=== PATIENT | female | born 1940 | race African-American/Black ===

== ENCOUNTER 2017-02-06 12:08 | Day surgery (SDC) | payer MEDICARE, OTHER ==
[2017-02-05 15:03] VITALS: BMI 29.8
[2017-02-06 12:28] LABS: Mean Platelet Volume 6.3 fL (7.4-10.4); Red Blood Cell (RBC) Count 4.86 mill/uL (4.20-5.40); White Blood Cell (WBC) Count 14.4 thou/uL (4.8-10.8)
[2017-02-06 12:33] LABS: PTT 29.3 SEC (22.9-36.1); Prothrombin Time 13.4 SEC (12.0-14.7)
[2017-02-06 13:04] VITALS: BP 129/90; TEMP 97.3
[2017-02-06] MEDS ORDERED: Sodium Bicarbonate 2.4 MEQ/5 ML ONE (13:06)
[2017-02-06] MEDS ORDERED: Lidocaine 1% PF 5 ML VIAL ONE (13:07)
--- NOTE | 2017-02-06 15:48 | ULT ---
ULTRSOUND GUIDED PARACENTESIS: History: Ascites. Comparison: None. FINDINGS: Technically successful ultrasound guided paracentesis. A total of 5 L of yellow colored ascites was aspirated. Post procedure images do demonstrate ascites to be present. Additional fluid was not aspi rated due to this was the patient's first paracentesis. Technique: Consent obtained to perform an ultrasound guided paracentesis. Patient's abdomen was evaluated. The left lower quadrant was deemed appropriate. Skin was prepped and draped in sterile fashion. 1% Lidoc jose buffered with sodium bicarbonate used for local anesthesia. Under ultrasound guidance a 7 cm 5 Bruneian Yueh catheter was advanced into the peritoneal space. Via vacuum bottles, a total of 5 L of y ellow colored ascites aspirated. Patient tolerated the procedure well. No immediate or post procedur e complication. IMPRESSION: Technically successful ultrasound guided paracentesis. POS: [facility]
== END 2017-02-06 14:00 | disposition home or self-care (01) ==
LOC: ULT 12:08
PROVIDERS: ATTEND Internal Medicine Hematology & Oncology
PROC: 0W9G30Z Drainage of Peritoneal Cavity with Drainage Device, Percutaneous Approach (ICD-10-PCS; principal; 2017-02-06)
DX: R18.8 Other ascites (principal); C54.1 Malignant neoplasm of endometrium; G62.0 Drug-induced polyneuropathy; T45.1X5A Adverse effect of antineoplastic and immunosuppressive drugs, initial encounter; I10 Essential (primary) hypertension; K21.9 Gastro-esophageal reflux disease without esophagitis; E78.00 Pure hypercholesterolemia, unspecified; Z79.899 Other long term (current) drug therapy; Z98.51 Tubal ligation status; Z98.890 Other specified postprocedural states
CPT/HCPCS: 36415; 49083; 85027; 85610; 85730; J2001

== ENCOUNTER 2017-03-05 08:02 | Day surgery (SDC) | payer MEDICARE, OTHER ==
[~2017-03-05 08:02] MED LIST: FLU VACC TS2017-18 (>65YR) 0.5 ML SYRINGE IM ONE
[2017-03-05] MEDS ORDERED: Sodium Bicarbonate 2.4 MEQ/5 ML ONE (08:27)
[2017-03-05 11:38] VITALS: BP 113/65; TEMP 97.6
--- NOTE | 2017-03-05 14:15 | ULT ---
ULTRASOUND GUIDED PARACENTESIS: DATE: 03/05/17. HISTORY: Recurrent ascites. TECHNIQUE: After informed consent was obtained, the patient was placed on the sonographic table in the supine po sition. An appropriate access site was evaluated with ultrasound guidance. An area in the midaxilla ry line right upper quadrant was marked and meticulously prepped and draped in the usual sterile fash ion. The skin and subcutaneous tissues were infiltrated with buffered 1% Lidocaine for local anesthesia. A small skin incision was made. Utilizing concurrent real-time ultrasound guidance, a 19 gauge Yueh needle with 5 Maltese sheath was advanced into the abdomen. After the return of fluid, the needle was removed and a sheath was advanced. Approximately 6 L of hazy straw-colored fluid was aspirated. Th e sheath was removed, and hemostasis was achieved with direct pressure. Post paracentesis images dem onstrate a small amount of residual intraperitoneal free fluid. The patient tolerated the procedure well without immediate complication. A dry, sterile dressing was placed to catheter entry site. IMPRESSION: Technically successful ultrasound-guided paracentesis. POS: [facility]
== END 2017-03-05 09:45 | disposition home or self-care (01) ==
LOC: ULT 08:02
PROVIDERS: ATTEND Internal Medicine Hematology & Oncology
PROC: 0W9G3ZZ Drainage of Peritoneal Cavity, Percutaneous Approach (ICD-10-PCS; principal; 2017-03-05)
PROC: BW40ZZZ Ultrasonography of Abdomen (ICD-10-PCS; 2017-03-05)
DX: C55 Malignant neoplasm of uterus, part unspecified (principal); R18.0 Malignant ascites; G62.9 Polyneuropathy, unspecified; I10 Essential (primary) hypertension; K21.9 Gastro-esophageal reflux disease without esophagitis; E78.00 Pure hypercholesterolemia, unspecified; Z79.899 Other long term (current) drug therapy; Z98.51 Tubal ligation status; Z98.890 Other specified postprocedural states
CPT/HCPCS: 49083

== ENCOUNTER 2017-04-14 14:12 | Observation (INO) | payer MEDICARE, OTHER ==
[2017-04-14 15:50] LABS: #Basophils 0.2 thou/uL (0.0-0.2); #Lymphocytes 1.1 thou/uL (1.20-3.40); #Monocytes 0.1 thou/uL (0.11-0.59); #Neutrophils 10.4 thou/uL (1.40-6.50); %Basophils 1.6 % (0.0-1.0); %Eosinophils 0.1 % (0.0-10.0); %Lymphocytes 9.4 % (21.0-51.0); %Monocytes 0.7 % (0.0-10.0); %Neutrophils 88.2 % (42.0-75.0); Hemoglobin 10.1 g/dL (12.0-16.0); Mean Corpuscular Hemoglobin 24.9 pg (27.0-31.0); Mean Platelet Volume 8.2 fL (7.4-10.4); Platelet Count 216 thou/uL (130-400); RBC Distribution Width 19.3 % (11.5-14.5); Red Blood Cell (RBC) Count 4.04 mill/uL (4.20-5.40); White Blood Cell (WBC) Count 11.8 thou/uL (4.8-10.8)
[2017-04-14 16:13] LABS: Anisocytosis MODERATE=16-30 cells (100X) (0-5/hpf); Hypochromia SLIGHT = 6-15 cells (100X) (0-5/hpf); MDiff Complete? YES; PLT Morphology Comment Appears Adequate; Polychromasia SLIGHT = 2-3 cells (100X) (0-2/hpf); Target Cells SLIGHT = 2-5 cells (100X) (0-1/hpf)
[2017-04-14 16:14] LABS: ALT (SGPT) 12 U/L (8-55); AST (SGOT) 22 U/L (5-34); Alkaline Phosphatase 124 U/L (40-150); Anion Gap 12 mmol/L (10-20); BUN (Urea Nitrogen) 12 mg/dL (9.8-20.1); Bilirubin, Total 0.4 mg/dL (0.2-1.2); Calc. Creatinine Clearance 0 mL/min (70-130); Calcium 8.6 mg/dL (7.8-10.44); Carbon Dioxide 24 mmol/L (23-31); Chloride 104 mmol/L (98-107); Estimated GFR-MDRD 74; Globulin 2.9 g/dL (2.4-3.5); Glucose 121 mg/dL (83-110); Potassium 4.4 mmol/L (3.5-5.1); Protein, Total 5.9 g/dL (6.0-8.3); Sodium 136 mmol/L (136-145)
[2017-04-14] MEDS ORDERED: ISOVUE-370 76%-LOCM 1 ML ONE (17:05)
[2017-04-14] MEDS ORDERED: Meropenem 1 GM in Sterile Water 20 ML SLOW IVP SCH (18:15)
--- NOTE | 2017-04-14 18:57 | CT ---
CT ABDOMEN AND PELVIS WITH IV CONTRAST: INDICATIONS: History of endometrial cancer. Question of an infected port, used for paracentesis. FINDINGS: There is moderate left and small right pleural effusion. There is a patchy opacity in the left lower lobe, suspicious for volume loss. There is moderate anasarca. There is a right abdominal wall paracentesis port. The tubing appears i ntact. The tubing enters the right lower quadrant of the abdomen and extends to the midline. There is a moderate amount of ascites. There is a nodular enhancing lesions seen adjacent to the rig ht hepatic tip, suspicious for carcinomatosis. This measures 2 cm in size. There is a prominent par tially calcified, hypodense mass, involving the uterus, measuring 7 cm, consistent with the patient's history of carcinoma. The small and large bowel are of normal caliber. The bladder, rectum, and perirectal soft tissues ap pear within normal limits. There are fat-containing inguinal hernias. There is scattered degenerative and osteoarthritic change. There is an age indeterminate wedge compr ession abnormality of L1. There is diffuse osteopenia. There are partially calcified lymph nodes within the central mesentery. IMPRESSION: 1. Large hypodense mass involving the endometrial canal of the uterus, suspicious for the patient's known endometrial carcinoma. There is a soft tissue density seen involving the peritoneum, adjacent to the right hepatic lobe tip, measuring 2 cm, suspicious for carcinomatosis. 2. Moderate ascites. 3. Moderate anasarca. 4. Moderate left and small right pleural effusions. 5. Age indeterminate compression abnormality of L1. POS: [facility]
[2017-04-14 20:21] LABS: Lactic Acid 2.1 mmol/L (0.5-2.2)
[2017-04-14 20:46] LABS: Bilirubin Negative (Negative); Blood, Urine Negative (Negative); Clarity CLEAR (Clear); Glucose, Urine (Dipstick) Negative (Negative); Leukocyte Negative (Negative); Nitrite Negative (Negative); Protein, Urine (Dipstick) Negative (Neg-Trace); Urobilinogen 0.2 mg/dL (0.2-1.0); pH, Urine 5.5 (5.0-9.0)
[2017-04-14 20:47] LABS: Specific Gravity, Urine 1.047 (1.002-1.036)
[2017-04-14] MEDS ORDERED: Dextrose 5 % And 0.9 % NaCl 1,000 ML IV SCH (23:45)
[2017-04-14] MEDS ORDERED: Acetaminophen 325 MG TAB PO PRN (23:46)
[2017-04-14] MEDS ORDERED: Ondansetron HCl/PF 4 MG/2 ML Vial IVP PRN (23:46)
[2017-04-14] MEDS ORDERED: Ondansetron ODT 4 MG TAB SL PRN (23:46)
[2017-04-15] MEDS ORDERED: Acetaminophen 325 MG TAB PO PRN ×2 (01:43→03:59)
[2017-04-15] MEDS ORDERED: Ondansetron HCl/PF 4 MG/2 ML Vial IVP PRN ×2 (01:43→03:59)
[2017-04-15] MEDS ORDERED: Ondansetron ODT 4 MG TAB SL PRN (01:43)
[2017-04-15] MEDS ORDERED: Dextrose 5 % And 0.9 % NaCl 1,000 ML IV SCH (01:45)
[2017-04-15 03:31] VITALS: BMI 29.9
[2017-04-15] MEDS ORDERED: HYDROcodone/Acetaminophen 5/325 mg Tablet PO PRN (03:59)
[2017-04-15] MEDS ORDERED: HYDROcodone/Acetaminophen 10/325 mg Tablet PO PRN (03:59)
[2017-04-15] MEDS ORDERED: Ondansetron ODT 4 MG TAB PO PRN (03:59)
[2017-04-15] MEDS ORDERED: Meropenem 1 GM in Sterile Water 20 ML SLOW IVP SCH (04:00)
[2017-04-15 05:36] LABS: #Lymphocytes 0.6 thou/uL (1.20-3.40); #Monocytes 0.1 thou/uL (0.11-0.59); #Neutrophils 6.1 thou/uL (1.40-6.50); %Eosinophils 0.2 % (0.0-10.0); %Lymphocytes 8.7 % (21.0-51.0); %Monocytes 1.3 % (0.0-10.0); %Neutrophils 89.9 % (42.0-75.0); Hemoglobin 8.5 g/dL (12.0-16.0); Mean Corpuscular HGB CONC 30.3 g/dL (32.0-36.0); Mean Corpuscular Hemoglobin 25.1 pg (27.0-31.0); Mean Corpuscular Volume 82.8 fl (81.0-99.0); Mean Platelet Volume 8.3 fL (7.4-10.4); Platelet Count 179 thou/uL (130-400); RBC Distribution Width 19.1 % (11.5-14.5); Red Blood Cell (RBC) Count 3.37 mill/uL (4.20-5.40); White Blood Cell (WBC) Count 6.8 thou/uL (4.8-10.8)
[2017-04-15 05:59] LABS: ALT (SGPT) 9 U/L (8-55); AST (SGOT) 15 U/L (5-34); Albumin 2.6 g/dL (3.4-4.8); Alkaline Phosphatase 102 U/L (40-150); Anion Gap 10 mmol/L (10-20); BUN (Urea Nitrogen) 10 mg/dL (9.8-20.1); Bilirubin, Total 0.3 mg/dL (0.2-1.2); Calc. Creatinine Clearance 87 mL/min (70-130); Calcium 7.8 mg/dL (7.8-10.44); Carbon Dioxide 27 mmol/L (23-31); Chloride 105 mmol/L (98-107); Estimated GFR-MDRD Greater than 90; Globulin 2.3 g/dL (2.4-3.5); Glucose 88 mg/dL (83-110); Potassium 3.6 mmol/L (3.5-5.1); Protein, Total 4.9 g/dL (6.0-8.3); Sodium 138 mmol/L (136-145)
--- NOTE | 2017-04-15 07:34 | HP ---
PRIMARY CARE PHYSICIAN: Dr. Tracy Beatty PRIMARY ONCOLOGIST: Dr. Rios in [place] and recent oncologist with Dr. Webber here locally. CHIEF COMPLAINT: Abdominal cellulitis and leakage. HISTORY OF PRESENT ILLNESS: Ms. Winkler is a very pleasant 68-year-old female who was diagnosed with endometrial cancer, she is currently on Taxol and carboplatin q.3 weeks with the last dose back on 04/11/2017. She was originally seen by Dr. Webber, however, wanted to get a second opinion and did go to [place]. Dr. Rios in [place] has been managing her chemotherapy. The patient has developed some ascites, and it was felt that she was going to need repeat taps. She actually had implanted a MediPort put in the right upper quadrant with a tunnel catheter down to the periumbilical region diving inside. She had the procedure done back on 03/20/2017. She has done well, however, she started noticing sometime on or around to have some salvatore kage from the distal incision at the end of the tunnel catheter section. She developed some firmness to the skin around that area and presented to the Emergency Department for evaluation. She denies a ny nausea, vomiting. No purulent drainage. It has all been clear. She denies fevers or chills, no chest pain or shortness of breath, no cough or sputum production. PAST MEDICAL HISTORY: 1. Hypertension. 2. Endometrial cancer. 3. Gastroesophageal reflux disease. 4. Hyperlipidemia. 5. Moderate protein calorie malnutrition. PAST SURGICAL HISTORY: MediPort placement on 03/20/2017. HOME MEDICATIONS: 1. HCTZ 25 mg p.o. daily. 2. [place] 5/325 one tablet every 6 hours as needed for pain. 3. Naproxen 500 mg p.o. b.i.d. 4. Omeprazole 20 mg daily. 5. Multivitamin daily. 6. Zocor 20 mg p.o. at bedtime. 7. Toprol-XL 100 mg daily. 8. Vitamin D3 1000 units daily. 9. Taxol every 3 weeks, last on 04/11/2017. 10. Carboplatin every 3 weeks, last on 04/11/2017. ALLERGIES: NKDA. FAMILY HISTORY: Negative for clotting or bleeding disorder, no immune dysfunction. SOCIAL HISTORY: Negative for habits x3. REVIEW OF SYSTEMS: A 10-point review of systems was performed and is negative for other systems exce pt stated as per HPI. PHYSICAL EXAMINATION: VITAL SIGNS: Temperature 97.5, pulse 102, blood pressure 130/72, respiratory rate 16, satting 95-96% on room air. GENERAL: She is awake. She is alert. She is oriented x3. She is a well-developed, well-nourished female, appears in no acute distress. HEENT: She is normocephalic and atraumatic. She has alopecia. Mucous membranes are moist. She has no visible lesions or thrush. NECK: Supple. She has no lymphadenopathy, JVD or thyromegaly. Normal carotid upstrokes. LUNGS: Clear anteriorly, she has some basilar crackles. These crackles did clear with deep inspirat ion. She has good air movement. Symmetrical chest excursion. There is no prolonged expiratory phas e. CARDIOVASCULAR: She is slightly tachycardic, but regular. Normal S1, S2, no S3 or S4. No audible m urmurs. ABDOMEN: The abdomen is soft, is nontender. She has a primary Port-A-Cath site present in the right upper quadrant. The actual Port-A-Cath itself is encased in a fluid collection that is thin. Over the suture line there is a very small pinpoint area with a single drop of straw-colored fluid sitting on top. She does have an obvious stoma present from the right upper quadrant down to the periumbili darryn space. She has a central depression/ridge along the middle of this where her tunnel catheter is and does have some edema around it. On inspection of the end of the tunneling, and the location wher e the catheter dives into the belly cavity, there is a small area approximately 2 mm wide with serous fluid present on overlying bandage. She has no purulence, there is no increased erythema, there is no tenderness. EXTREMITIES: Shows no cyanosis or clubbing. She does have 1+ edema bilateral lower extremities. SKIN: Warm, moist, and well perfused and has no other lesions. MUSCULOSKELETAL: Shows large joints to be intact. She has no inflammation and no palpable effusions . NEUROLOGIC: Shows cranial nerves II-XII are grossly intact without any focal neurologic deficits. S he has 5/5 strength, she has normal speech, no focal deficits. LABORATORY DATA: CMP is normal except for a total protein of 5.9 and albumin 3.0, creatinine which w as 0.89. Electrolytes were normal. CBC showed a white count of 11.8, 88% granulocytes, 9% lymphocytes. Hemoglobin 10.1, hematocrit 33.5 , and platelet count is 216,000. Lactic acid initially was 2.4, down to 2.1 with IV fluids in the ER . Urinalysis was negative. RADIOGRAPHIC STUDIES: She had a CT scan of the abdomen and pelvis that showed a large hypodense lesi on in the endometrial canal, consistent with her primary endometrial cancer. She also had a soft tis jordana density in the peritoneum adjacent to the right hepatic lobe about 2 cm. It was felt to be a met astatic lesion. ASSESSMENT AND PLAN: 1. Complication/problem arising from Port-A-Cath placement. I think she has got leakage of fluid fr om her belly cavity down the tunnel to the reservoir site. I think this would be improved if we were to have her abdominal ascites decompressed. She has not had this done yet. We will place an order in for Radiology and ultrasound guided paracentesis today for a therapeutic drainage. In the meantim e, we will keep the open area covered with a sterile gauze. With continual fluid drainage, likely th is closing up is low. 2. Moderate to severe protein calorie malnutrition, patient has decreased appetite. I talked to her about the need to eat. I will have nutrition come by and see her and make recommendations. 3. Hypertension, the patient is on HCTZ, Toprol-XL. I will continue the present. 4. Endometrial cancer on Taxol and carboplatin. 5. Gastroesophageal reflux disease on omeprazole, which will continue. 6. Hyperlipidemia on Zocor.
[2017-04-15] MEDS ORDERED: Non-Formulary Item 1 EACH (Omeprazole [Omeprazole] 20 MG) PO SCH (09:00)
[2017-04-15] MEDS ORDERED: Hydrochlorothiazide 25 MG TAB PO SCH (09:00)
[2017-04-15] MEDS ORDERED: Docusate 100 MG CAP PO SCH (09:00)
[2017-04-15 11:33] VITALS: BP 107/72; TEMP 97.4
--- NOTE | 2017-04-15 14:35 | PDOC.PN ---
- Subjective Encounter Start Date: 04/15/17 Encounter Start Time: 10:10 Subjective: no abd pain or leaking from port site -: feels better - Objective Resuscitation Status: Resuscitation Status FULL:Full Resuscitation MAR Reviewed: Yes Vital Signs & Weight: Vital Signs (12 hours) Temp Pulse Resp BP Pulse Ox 04/15/17 11:32 97.4 F L 112 H 18 107/72 98 04/15/17 08:00 98.2 F 100 14 04/15/17 07:15 98.2 F 100 14 96/62 100 Weight Admit Weight 185 lb 7 oz Weight 185 lb 7 oz I&O: 04/14/17 04/15/17 04/16/17 06:59 06:59 06:59 Intake Total 740 Balance 740 Result Diagrams: 04/15/17 05:14 04/15/17 05:14 Phys Exam - Physical Examination HEENT: PERRLA, moist MMs Neck: no JVD, supple Respiratory: no wheezing, no rales Cardiovascular: RRR, no significant murmur Gastrointestinal: soft, no distention, positive bowel sounds no leak seen around port a cath site, abd wall edema posteriorly Musculoskeletal: pulses present, edema present Neurological: non-focal, moves all 4 limbs Psychiatric: normal affect, A&O x 3 Dx/Plan (1) Ascites Code(s): R18.8 - OTHER ASCITES Status: Chronic Qualifiers: Ascites type: malignant Qualified Code(s): R18.0 - Malignant ascites (2) H/O malignant neoplasm of uterine body Code(s): Z85.42 - PERSONAL HISTORY OF MALIGNANT NEOPLASM OF OTH PRT UTERUS Status: Chronic Comment: on chemotherapy (3) 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 - MALIGNANT NEOPLASM OF ABDOMEN Status: Chronic (4) Anemia Code(s): D64.9 - ANEMIA, UNSPECIFIED Status: Chronic (5) HTN (hypertension) Code(s): I10 - ESSENTIAL (PRIMARY) HYPERTENSION Status: Chronic Qualifiers: Hypertension type: essential hypertension Qualified Code(s): I10 - Essential (primary) hypertension (6) Dyslipidemia Code(s): E78.5 - HYPERLIPIDEMIA, UNSPECIFIED Status: Chronic (7) Malnutrition of moderate degree Code(s): E44.0 - MODERATE PROTEIN-CALORIE MALNUTRITION Status: Chronic - Plan paracentesis in am around 11 am -: wants to go home and come back as outpt to get the same done -: will dc home -: to f/u with her onc and surgeon in [facility] as before * .
--- NOTE | 2017-04-15 15:02 | ULT ---
ULTRASOUND LIMITED: Date: 04-15-2017 History: 76-year-old female with malignant ascites. Technique: Limited images of the bilateral upper and lower quadrants. FINDINGS: Moderate amount of free fluid in the right upper quadrant. Moderate to large pocket of free fluid in the left lower quadrant and left upper quadrant. Small amount of free fluid in the right lower quadra nt. Overall, the volume of free fluid is significantly lower than on previous paracentesis ultrasound of 03-05-17. There is diffuse thickening of the abdominal wall. IMPRESSION: 1. Moderate volume of ascites. 2. Anasarca. POS: [facility]
[2017-04-16 09:56] LABS: PTT 25.3 SEC (22.9-36.1); Prothrombin Time 13.3 SEC (12.0-14.7)
--- NOTE | 2017-04-17 13:14 | DIS ---
DATE OF ADMISSION: 04/15/2017 DATE OF DISCHARGE: 04/15/2017 DISCHARGE DISPOSITION: To home. PRIMARY DISCHARGE DIAGNOSES: Malignant ascites with weeping from her port site, resolved. SECONDARY DISCHARGE DIAGNOSES: Uterine cancer on chemotherapy, abdominal carcinomatosis, chronic ane mini, hypertension, dyslipidemia, and moderate malnutrition. PROCEDURES DONE DURING HOSPITALIZATION: Abdominal ultrasound done showed moderate volume of ascites and anasarca. CT of the abdomen and pelvis done showed large hypodense mass involving the endometria l canal of the uterus suspicious for endometrial carcinoma. There was also soft tissue density seen involving the peritoneum, adjacent to the right hepatic lobe tip measuring 2 cm suspicious for carcin omatosis, moderate ascites, moderate anasarca, moderate bilateral pleural effusions, old compression fracture of L1. She had a white count of 6 on the day of discharge with H&H of 8 and 27, platelet co unt 179 with 89% neutrophils, MCV was 82. INR 1.0, albumin is 2.6. LFTs were within normal limits. BUN 10, creatinine 0.7. DISCHARGE MEDICATIONS: Patient is to continue all her home medication as before including hydrochlor othiazide 25 mg daily, [place]den p.r.n. for pain, vitamin D 3000 units p.o. daily, Lopressor extended rel ease 100 mg daily, multivitamin 1 tab once daily, omeprazole 20 mg daily, Phenergan p.r.n., and simva statin 20 mg p.o. q.p.m. ALLERGIES: No known drug allergies. DISCHARGE PLAN: The patient has been scheduled for outpatient paracentesis on the at 11:00 a.m. BRIEF COURSE DURING HOSPITALIZATION: Patient initially came to ER with complaints of leakage from he r port site on her abdomen with initial suspicion for possible cellulitis. Patient has moderate asci isma and likely was leaking from her port site. Ultrasound paracentesis was advised, but patient did not want to wait 24 hours to get the same done and would like to have this done as an outpatient. is has been set up for 11:00 a.m. on the . She is otherwise ambulating in the room minimally and is wanting to go home now. She follows up with [facility] oncologist and has been advised to follow up with the primary care physician and oncologist at the earliest. Please see a face [facility] face [facility] for the day of discharge.
== END 2017-04-15 12:55 | disposition home or self-care (01) ==
LOC: ERS 14:12 → SURG A 23:30
PROVIDERS: ADMIT Internal Medicine Infectious Disease; ATTEND Internal Medicine Infectious Disease
DX: C54.1 Malignant neoplasm of endometrium (principal); R18.0 Malignant ascites; C76.2 Malignant neoplasm of abdomen; D63.0 Anemia in neoplastic disease; I10 Essential (primary) hypertension; E78.5 Hyperlipidemia, unspecified; K21.9 Gastro-esophageal reflux disease without esophagitis; E44.0 Moderate protein-calorie malnutrition; Z68.29 Body mass index [BMI] 29.0-29.9, adult; Z79.1 Long term (current) use of non-steroidal anti-inflammatories (NSAID); Z79.2 Long term (current) use of antibiotics; Z79.52 Long term (current) use of systemic steroids; Z79.899 Other long term (current) drug therapy; Z95.828 Presence of other vascular implants and grafts; Z98.890 Other specified postprocedural states
CPT/HCPCS: 51701; 74177; 76705; 80053 ×2; 81003; 83605; 85025 ×2; 85610; 85730; 96361 ×3; 96365; 97139; 99285; G0378; 36415; A4216; A4353; J2185

== ENCOUNTER 2017-04-16 09:31 | Day surgery (SDC) | payer MEDICARE, OTHER ==
[2017-04-16 11:48] VITALS: TEMP 97.8
[2017-04-16 11:49] VITALS: BP 113/68; BMI 29.9
[2017-04-16] MEDS ORDERED: FLU VACC TS2017-18 (>65YR) 0.5 ML SYRINGE IM ONE (12:15)
--- NOTE | 2017-04-16 14:33 | ULT ---
ULTRASOUND GUIDED PARACENTESIS: 04/16/2017 HISTORY: Malignant symptomatic ascites. FINDINGS: Informed consent was obtained prior to the procedure. Preprocedural imaging demonstrates significant ascites within the abdomen/pelvis. The left mid abdomen was prepped and draped in the normal sterile fashion and anesthetized with 1% bu ffered Lidocaine. With direct sonographic guidance, a 5 Romanian Arrogeneeh catheter was advanced into the a scites. Removal of the stylet yielded isatu-colored fluid, and 2300 mL was removed. The patient eli erated the procedure well. IMPRESSION: Successful ultrasound guided paracentesis, yielding 2300 mL of isatu fluid. POS: [facility]
== END 2017-04-16 11:15 | disposition home or self-care (01) ==
LOC: ULT 09:31
PROVIDERS: ATTEND Internal Medicine Infectious Disease
PROC: 0W9G3ZZ Drainage of Peritoneal Cavity, Percutaneous Approach (ICD-10-PCS; principal; 2017-04-16)
PROC: BW40ZZZ Ultrasonography of Abdomen (ICD-10-PCS; 2017-04-16)
DX: C54.1 Malignant neoplasm of endometrium (principal); R18.0 Malignant ascites; I10 Essential (primary) hypertension; K21.9 Gastro-esophageal reflux disease without esophagitis; E78.5 Hyperlipidemia, unspecified; Z79.899 Other long term (current) drug therapy; Z95.828 Presence of other vascular implants and grafts
CPT/HCPCS: 49083

== ENCOUNTER 2017-05-23 14:38 | Emergency (ER) | payer MEDICARE, OTHER ==
[2017-05-23 16:02] LABS: #Lymphocytes 0.7 thou/uL (1.20-3.40); #Monocytes 0.6 thou/uL (0.11-0.59); #Neutrophils 11.4 thou/uL (1.40-6.50); %Basophils 0.1 % (0.0-1.0); %Eosinophils 0.2 % (0.0-10.0); %Lymphocytes 5.5 % (21.0-51.0); %Monocytes 4.9 % (0.0-10.0); %Neutrophils 89.3 % (42.0-75.0); Hemoglobin 8.3 g/dL (12.0-16.0); Mean Corpuscular HGB CONC 31.1 g/dL (32.0-36.0); Mean Corpuscular Volume 83.5 fl (81.0-99.0); Mean Platelet Volume 7.9 fL (7.4-10.4); Platelet Count 264 thou/uL (130-400); RBC Distribution Width 18.5 % (11.5-14.5); Red Blood Cell (RBC) Count 3.21 mill/uL (4.20-5.40); White Blood Cell (WBC) Count 12.8 thou/uL (4.8-10.8)
[2017-05-23 16:09] LABS: INR-International Normal Ratio 1.2; PTT 35.2 SEC (22.9-36.1); Prothrombin Time 15.2 SEC (12.0-14.7)
[2017-05-23 16:25] LABS: ALT (SGPT) 8 U/L (8-55); AST (SGOT) 10 U/L (5-34); Albumin 2.4 g/dL (3.4-4.8); Alkaline Phosphatase 116 U/L (40-150); Anion Gap 13 mmol/L (10-20); BUN (Urea Nitrogen) 6 mg/dL (9.8-20.1); Bilirubin, Total 0.4 mg/dL (0.2-1.2); Calc. Creatinine Clearance 0 mL/min (70-130); Calcium 8.4 mg/dL (7.8-10.44); Carbon Dioxide 28 mmol/L (23-31); Chloride 99 mmol/L (98-107); Estimated GFR-MDRD 84; Globulin 3.3 g/dL (2.4-3.5); Glucose 93 mg/dL (83-110); Protein, Total 5.7 g/dL (6.0-8.3); Sodium 137 mmol/L (136-145)
[2017-05-23] MEDS ORDERED: Pantoprazole 40 MG VIAL ONE (16:34)
[2017-05-23] MEDS ORDERED: Potassium Chloride 20 MEQ TAB ONE (19:12)
== END 2017-05-23 19:26 | disposition home or self-care (01) ==
LOC: ERS 14:38
DX: E86.0 Dehydration (principal); D64.9 Anemia, unspecified; E87.5 Hyperkalemia; R19.7 Diarrhea, unspecified; I10 Essential (primary) hypertension; Z79.891 Long term (current) use of opiate analgesic; Z79.899 Other long term (current) drug therapy; Z79.1 Long term (current) use of non-steroidal anti-inflammatories (NSAID)
CPT/HCPCS: 36415; 80053; 82274; 85025; 85610; 85730; 86850; 86900; 86901; 96361; 96374; C9113

== ENCOUNTER 2017-06-02 10:09 | Inpatient (IN) | payer MEDICARE, OTHER ==
[2017-06-02 11:04] LABS: INR-International Normal Ratio 1.1; PTT 28.9 SEC (22.9-36.1); Prothrombin Time 14.1 SEC (12.0-14.7)
[2017-06-02 11:11] LABS: Band 3 % (5-11); Hemoglobin 8.3 g/dL (12.0-16.0); Hypochromia SLIGHT = 6-15 cells (100X) (0-5/hpf); Lymphocytes 6 % (21-51); MDiff Complete? YES; Mean Corpuscular HGB CONC 30.9 g/dL (32.0-36.0); Mean Corpuscular Hemoglobin 25.9 pg (27.0-31.0); Mean Corpuscular Volume 83.8 fl (81.0-99.0); Mean Platelet Volume 8.6 fL (7.4-10.4); Neutrophil 91 % (42-75); Platelet Count 228 thou/uL (130-400); RBC Distribution Width 18.9 % (11.5-14.5); Red Blood Cell (RBC) Count 3.21 mill/uL (4.20-5.40); Target Cells SLIGHT = 2-5 cells (100X) (0-1/hpf); White Blood Cell (WBC) Count 10.5 thou/uL (4.8-10.8)
[2017-06-02 11:17] LABS: ALT (SGPT) 10 U/L (8-55); AST (SGOT) 19 U/L (5-34); Albumin 2.7 g/dL (3.4-4.8); Alkaline Phosphatase 109 U/L (40-150); Anion Gap 10 mmol/L (10-20); BUN (Urea Nitrogen) 9 mg/dL (9.8-20.1); Bilirubin, Total 0.2 mg/dL (0.2-1.2); Calc. Creatinine Clearance 0 mL/min (70-130); Calcium 8.4 mg/dL (7.8-10.44); Carbon Dioxide 29 mmol/L (23-31); Chloride 100 mmol/L (98-107); Estimated GFR-MDRD Greater than 90; Globulin 3.3 g/dL (2.4-3.5); Glucose 127 mg/dL (83-110); Iron 83 ug/dL (50-170); Iron Binding Capacity, Total 111 mcg/dL (265-497); Potassium 3.2 mmol/L (3.5-5.1); Sodium 136 mmol/L (136-145)
[2017-06-02] MEDS ORDERED: cefTRIAXone\\ROCEPHIN 2 GM in Sodium Chloride 0.9% 100 ML IVPB SCH (15:00)
--- NOTE | 2017-06-02 15:05 | RAD ---
CHEST TWO VIEWS: History: Chest pain. Anemia. FINDINGS: Cardiac silhouette is magnified, enlarged, and partially obscured by left pleural fluid. Mediastinum is midline. Linear parenchymal opacity over the left upper lobe has the appearance of atelectasis. Ri ght lung is clear. Right subclavian Mediport is in place. No evidence of pneumothorax. IMPRESSION: Left pleural fluid with left basilar atelectasis. Cause is not evident. POS: [facility]
--- NOTE | 2017-06-02 15:59 | HP ---
PRIMARY CARE PHYSICIAN: Dr. Tracy Beatty. REASON FOR ADMISSION: Symptomatic anemia, left-sided pneumonia. HISTORY OF PRESENT ILLNESS: A 76-year-old female who has underlying history of endometrial cancer an d she is receiving chemotherapy every week. She is getting chemotherapy in [place]. Her last chemoth erapy was on last . The patient had blood test done and her hemoglobin was 7.8 and that is w hy her oncologist advised her to go to local clinic for blood transfusion. At the same time, patient was also feeling more dizzy, lightheaded, shortness of breath on exertion, easy fatigability and tir ed. Today, her blood test done in our emergency room and her hemoglobin was 8.3 and that is why the ER physician decided not to transfuse blood. She was tachycardic and they did a chest x-ray and kulwinder ent was found with left-sided infiltration and left-sided effusion. The patient was having cough int ermittently. She was not having any fever at home, but she was feeling subjectively feverish. She d enies any chills. She denies any pleuritic chest pain. She denies any flu-like illness. She denies any UTI symptoms. She denies any kind of blood loss from any site in her body. Especially, she den ies any melena, hematochezia, vaginal bleeding or hematuria. She denies any hematemesis. ALLERGIES: No known drug allergies. CURRENT HOME MEDICATIONS: Hydrochlorothiazide 25 mg p.o. daily, [place] 5 one tablet q.6 hourly p.r.n. , naproxen 500 mg as needed, omeprazole 20 mg p.o. daily, multivitamin 1 tablet p.o. daily, Toprol-XL 100 mg p.o. daily, vitamin D3 1000 units p.o. daily, Zocor 20 mg p.o. at bedtime, Lomotil one tablet twice daily p.r.n. and potassium chloride 10 mEq twice daily. REVIEW OF SYSTEMS: Constitutional: Weight loss or gain, ability to conduct usual activities. Skin: Rash, itching. Eyes: Double vision, pain. ENT/Mouth: Nose bleeding, neck stiffness, pain, tenderness. Cardiovascular: Palpitations, dyspnea on exertion, orthopnea. Respiratory: Shortness of breath, wheezing, cough, hemoptysis, fever or night sweats. Gastrointestinal: Poor appetite, abdominal pain, heartburn, nausea, vomiting, constipation, or diarr hea. Genitourinary: Urgency, frequency, dysuria, nocturia. Musculoskeletal: Pain, swelling. Neurologic/Psychiatric: Anxiety, depression. Allergy/Immunologic: Skin rash, bleeding tendency. Please see my HPI for pertinent positives and negatives. All other review of systems reviewed and ne gative except as mentioned in the HPI. PAST MEDICAL HISTORY: Hypertension; endometrial cancer, on chemotherapy; gastroesophageal reflux dis ease; dyslipidemia; moderate protein-calorie malnutrition and history of malignant ascites. PAST SURGICAL HISTORY: Port placed in the right middle quadrant abdomen for paracentesis as needed. As per family member, that port is placed in [place], [place] at [facility], but nobody can access locally including [facility] or [facility] and for paracentesis. Via that access, she has to go to that hospital. PAST PSYCHIATRIC HISTORY: Reviewed and negative. SOCIAL HISTORY: The patient lives at home with family. No history of tobacco, alcohol or illicit dr ug abuse. FAMILY HISTORY: No strong family history of premature coronary artery disease, stroke or cancer. EMERGENCY ROOM COURSE: The patient is receiving IV fluids, Rocephin and Levaquin. PHYSICAL EXAMINATION: VITAL SIGNS: On arrival, blood pressure 112/71, pulse 123, respiratory rate 16, temperature 98.3, sa turation 98% on room air and weight 81.6 kilograms. GENERAL: The patient is currently alert and oriented, in no acute distress. HEAD: Normocephalic and atraumatic. EYES: Pupils are round and reactive to light. Pale sclerae. No nystagmus. ENT: Oropharynx within normal limits. Pale mucous membranes. No pharyngeal erythema, no exudates. NECK: Supple. No JVD, no thyromegaly, no carotid bruit, no meningeal signs of irritation. LUNGS: Air entry reduced especially on the left base with few rales noted. No wheezing, no rhonchi. CARDIAC: S1 and S2, irregular, tachycardia. No murmur, no gallop, no rub. ABDOMEN: Ascites present. Bowel sounds present. Port placed in the right middle quadrant noted wit hout any tenderness, without any erythema or cellulitis. BACK: Unremarkable. No CVA tenderness. EXTREMITIES: Upper extremity passive movement of all joints are normal. Lower extremities: Bilater al lower extremity pitting edema noted. SKIN: No skin rash. HEMATOLOGICAL SYSTEM: No lymphadenopathy. PSYCHIATRIC: Normal affect. NEUROLOGIC: Nonfocal examination. The patient moves all 4 limbs. Plantar bilateral flexor. PSYCHIATRIC: Normal affect. SIGNIFICANT LABS: EKG showing sinus tachycardia without any ischemic changes. Chest x-ray based on my review left lower lobe infiltration with a pleural effusion. CBC: WBC 10.5, hemoglobin 8.3, platelet 228 with bandemia. INR 1.1. BMP: Sodium 136, potassium 3. 2, chloride 100, carbon dioxide 29, anion gap 10, BUN 9, creatinine 0.74, glucose 127 and calcium 8.4 . Iron 83, TIBC 111, ferritin 2292.31. LFT: AST 19, ALT 10, alkaline phosphatase 109. Albumin 2.7 . ASSESSMENT, PLAN AND IMPRESSION: 1. Symptomatic anemia. This patient's hemoglobin is 8.3 and she has symptoms associated with anemia including fatigue, tiredness, dyspnea on exertion, dizziness, palpitations and tachycardia. She is a cancer patient and she is on chemotherapy. We will prefer at least 1 unit of blood transfusion ton ight and we will repeat CBC tomorrow. 2. Left lower lobe pneumonia. The patient is a chemotherapy patient. She is immunocompromised. Sh e has bandemia. She has x-ray finding of infiltration, though patient does not have any clear-cut re spiratory symptoms. We will prefer to treat her with Rocephin and Levaquin therapy. Upon discharge, we will give her Levaquin therapy for a total of 7 days course of treatment. 3. History of malignant ascites. The patient is asking us to do ultrasound in case if we can do par acentesis here. Her last paracentesis was done in 05/09/2017 and patient is now feeling fullness in her stomach, so we will do ultrasound and if the patient does have major ascites, then we will consid er radiological-guided paracentesis while in hospital before discharge. 4. History of endometrial carcinoma. The patient is getting chemotherapy, carboplatin every 3 weeks . Her last chemotherapy was about a week ago. The patient will follow up [place] onc[place]. 5. Sinus tachycardia, likely due to combined etiology of pneumonia and symptomatic anemia. At this point, her tachycardia is not severe enough to require cardiac monitor technician and we will continue with he r home medication Toprol-XL as well while in hospital and she is medically okay to go to oncology nuvia or. 6. Hypertension. We will continue Toprol-XL 100 mg p.o. daily and hydrochlorothiazide 25 mg p.o. da niko. 7. Hypokalemia. We will check magnesium tomorrow and we will continue with potassium chloride 10 mE q p.o. daily. 8. Dyslipidemia. Continue Zocor 20 mg p.o. at bedtime. 9. Gastroesophageal reflux disease. Continue Protonix 40 mg p.o. daily. 10. Deep venous thrombosis prophylaxis. Lovenox 40 mg subcu daily. 11. Hypoalbuminemia, likely related with protein-calorie malnutrition that can explain patient's low er extremity pitting edema. 12. Deep venous thrombosis prophylaxis. Lovenox 40 mg subcu daily. 13. Gastrointestinal prophylaxis, Protonix 40 mg p.o. daily. CODE STATUS: The patient is FULL CODE. The patient's daughter is the surrogate decision maker. Disposition plan based on clinical course. Plan of care extensively discussed with the patient and f kailyn member at bedside.
[2017-06-02 17:24] VITALS: BMI 29.0
[2017-06-02] MEDS ORDERED: Acetaminophen 325 MG TAB PO PRN ×2 (17:35→18:02)
[2017-06-02] MEDS ORDERED: Ondansetron ODT 4 MG TAB SL PRN (17:35)
[2017-06-02] MEDS ORDERED: Ondansetron HCl/PF 4 MG/2 ML Vial IVP PRN ×2 (17:35→18:02)
[2017-06-02] MEDS ORDERED: Senokot 8.6 MG TAB PO PRN (18:02)
[2017-06-02] MEDS ORDERED: Labetalol HCl 100 MG/20 ML VIAL SLOW IVP PRN (18:02)
[2017-06-02] MEDS ORDERED: Zolpidem Tartrate 5 MG TAB PO PRN (18:02)
[2017-06-02] MEDS ORDERED: cefTRIAXone\\ROCEPHIN 1 GM in Sodium Chloride 0.9% 100 ML IVPB SCH (18:02)
[2017-06-02] MEDS ORDERED: Mag-Al 1200 mg/1200 mg/30 ML UDCUP PO PRN (18:02)
[2017-06-02] MEDS ORDERED: Loratadine 10 MG TAB PO PRN (18:02)
[2017-06-02] MEDS ORDERED: Milk Of Magnesia 30 ML UDCUP PO PRN (18:02)
[2017-06-02] MEDS ORDERED: Eucerin (Mineral Oil/Petrolatum,White) 30 gm Jar TOP PRN (18:02)
[2017-06-02] MEDS ORDERED: Artificial Tears 18 DROP/0.9 ML EA EYE PRN (18:02)
[2017-06-02] MEDS ORDERED: Sodium Chloride 0.65% Nasal 44 ML BOT EA NARE PRN (18:02)
[2017-06-02] MEDS ORDERED: Diabetic Tussin 200 MG/10 ML UDCUP PO PRN (18:02)
[2017-06-02] MEDS ORDERED: Loperamide HCl 2 MG CAP PO PRN (18:02)
[2017-06-02] MEDS ORDERED: Chloraseptic Spray 180 ml Bottle PO PRN (18:02)
[2017-06-02] MEDS ORDERED: HYDROcodone/Acetaminophen 5/325 mg Tablet PO PRN (18:02)
[2017-06-02] MEDS ORDERED: Ondansetron ODT 4 MG TAB PO PRN (18:02)
[2017-06-02] MEDS ORDERED: Potassium Chloride 20 MEQ TAB PO SCH (18:15)
[2017-06-02] MEDS: Simvastatin 20 MG TAB PO SCH (20:37)
[2017-06-02] MEDS ORDERED: FLU VACC TS2017-18 (>65YR) 0.5 ML SYRINGE IM ONE (21:00)
[2017-06-02] MEDS ORDERED: Prevnar 13-Val Conj/PF 0.5 ML SYRINGE IM ONE (21:00)
[2017-06-02] MEDS: Dextrose 5 %-0.45 % NaCl 1,000 ML IV SCH (23:39)
[2017-06-02 23:59] LABS: Bilirubin Negative (Negative); Blood, Urine Small (Negative); Clarity CLOUDY (Clear); Glucose, Urine (Dipstick) Negative (Negative); Leukocyte Small (Negative); Nitrite Negative (Negative); Protein, Urine (Dipstick) 30 mg/dL (Neg-Trace); Urobilinogen 0.2 mg/dL (0.2-1.0)
[2017-06-03 00:02] LABS: Bacteria/HPF None Seen HPF (None Seen); Hyaline Casts/LPF 7-10 HYALINE CAST LPF (0-3 Hyaline); Pathc Cast-AUWi Flag 0.54 (0-2.49); WBC/HPF 21-50 HPF (0-3)
[2017-06-03 00:04] LABS: Renal Epithelial None Seen HPF (0-3); Transitional Epithelial NONE SEEN HPF (0-3)
[2017-06-03 05:44] LABS: #Lymphocytes 0.3 thou/uL (1.20-3.40); #Monocytes 0.1 thou/uL (0.11-0.59); %Basophils 0.1 % (0.0-1.0); %Eosinophils 0.1 % (0.0-10.0); %Lymphocytes 3.5 % (21.0-51.0); %Monocytes 0.8 % (0.0-10.0); %Neutrophils 95.5 % (42.0-75.0); Hemoglobin 7.9 g/dL (12.0-16.0); Mean Corpuscular HGB CONC 31.8 g/dL (32.0-36.0); Mean Corpuscular Volume 84.8 fl (81.0-99.0); Mean Platelet Volume 9.1 fL (7.4-10.4); Platelet Count 170 thou/uL (130-400); RBC Distribution Width 17.8 % (11.5-14.5); Red Blood Cell (RBC) Count 2.91 mill/uL (4.20-5.40); White Blood Cell (WBC) Count 9.5 thou/uL (4.8-10.8)
[2017-06-03 06:12] LABS: Anion Gap 11 mmol/L (10-20); BUN (Urea Nitrogen) 8 mg/dL (9.8-20.1); Calc. Creatinine Clearance 91 mL/min (70-130); Calcium 7.5 mg/dL (7.8-10.44); Carbon Dioxide 26 mmol/L (23-31); Chloride 103 mmol/L (98-107); Estimated GFR-MDRD Greater than 90; Glucose 137 mg/dL (83-110); Potassium 3.9 mmol/L (3.5-5.1); Sodium 136 mmol/L (136-145)
[2017-06-03] MEDS: Dextrose 5 %-0.45 % NaCl 1,000 ML IV SCH (06:29)
[2017-06-03] MEDS ORDERED: Magnesium Sulfate 4 GM in Sodium Chloride 0.9% 250 ML 250 ML IVPB SCH (07:00)
--- NOTE | 2017-06-03 07:54 | ULT ---
ABDOMEN ULTRASOUND LIMITED: COMPARISON: 04/15/17. HISTORY: Ascites. The patient has a history of cancer. TECHNIQUE: Targeted sonographic imaging of the 4 quadrants of the abdomen is performed. FINDINGS: There is ascites with septation suggesting complex fluid with areas of loculation. IMPRESSION: Loculated peritoneal fluid with septation. POS: [facility]
--- NOTE | 2017-06-03 10:28 | PDOC.PN ---
- Subjective Encounter Start Date: 06/03/17 Encounter Start Time: 07:30 -: old records requested/rev Patient seen and examined. still weak, WU, tired. No overnight events - Objective Resuscitation Status: Resuscitation Status FULL:Full Resuscitation MAR Reviewed: Yes Vital Signs & Weight: Vital Signs (12 hours) Temp Pulse Pulse Resp BP BP Pulse Ox 06/03/17 07:45 98.4 F 107 H 24 H 118/72 98 06/03/17 04:00 99.2 F 111 H 20 126/65 96 06/02/17 23:21 98.8 F 107 H 18 114/69 99 Weight Weight 183 lb I&O: 06/02/17 06/03/17 06/04/17 06:59 06:59 06:59 Intake Total 2125 Output Total 750 Balance 1375 Result Diagrams: 06/03/17 05:29 06/03/17 05:29 Radiology Reviewed by me: Yes (US abdo- loculated ascites) Phys Exam - Physical Examination Constitutional: NAD HEENT: PERRLA, moist MMs, sclera anicteric Neck: no JVD, supple Respiratory: no wheezing, no rales, no rhonchi Cardiovascular: RRR, no significant murmur, no rub Gastrointestinal: soft, non-tender, no distention, positive bowel sounds Musculoskeletal: pulses present, edema present Neurological: non-focal, normal sensation Psychiatric: normal affect, A&O x 3 Skin: no rash, normal turgor Dx/Plan (1) Hypokalemia Code(s): E87.6 - HYPOKALEMIA Status: Acute (2) Hypomagnesemia Code(s): E83.42 - HYPOMAGNESEMIA Status: Acute (3) Pneumonia Code(s): J18.9 - PNEUMONIA, UNSPECIFIED ORGANISM Status: Acute (4) Sinus tachycardia Code(s): R00.0 - TACHYCARDIA, UNSPECIFIED Status: Acute (5) Symptomatic anemia Code(s): D64.9 - ANEMIA, UNSPECIFIED Status: Acute (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 (7) Anemia of chronic disease Code(s): D63.8 - ANEMIA IN OTHER CHRONIC DISEASES CLASSIFIED ELSEWHERE Status : Chronic (8) Ascites Code(s): R18.8 - OTHER ASCITES Status: Chronic Qualifiers: Ascites type: malignant Qualified Code(s): R18.0 - Malignant ascites Comment: loculated ascites (9) Dyslipidemia Code(s): E78.5 - HYPERLIPIDEMIA, UNSPECIFIED Status: Chronic (10) H/O malignant neoplasm of uterine body Code(s): Z85.42 - PERSONAL HISTORY OF MALIGNANT NEOPLASM OF OTH PRT UTERUS Status: Chronic Comment: on chemotherapy (11) HTN (hypertension) Code(s): I10 - ESSENTIAL (PRIMARY) HYPERTENSION Status: Chronic Qualifiers: Hypertension type: essential hypertension Qualified Code(s): I10 - Essential (primary) hypertension (12) Malnutrition of moderate degree Code(s): E44.0 - MODERATE PROTEIN-CALORIE MALNUTRITION Status: Chronic - Plan cont current plan of care, plan discussed w/ family, continue antibiotics, respiratory therapy * replace magnesium today * transfuse 1 more unit for symptomatic anemia * repeat labs tomorrow * continue rocephin and levaquin * medication reviewed as below * symptomatic treatment. * DC IVF Review of Systems - Review of Systems Constitutional: weakness, malaise. negative: fever, chills, sweats, other ENT: negative: Ear Pain, Ear Discharge, Nose Pain, Nose Discharge, Nose Congestion, Mouth Pain, Mouth Swelling, Throat Pain, Throat Swelling, Other Respiratory: SOB with Excertion. negative: Cough, Dry, Shortness of Breath, Hemoptysis, Pleuritic Pain, Sputum, Wheezing Cardiovascular: edema. negative: chest pain, palpitations, orthopnea, paroxysmal nocturnal dyspnea, light headedness, other Gastrointestinal: negative: Nausea, Vomiting, Abdominal Pain, Diarrhea, Constipation, Melena, Hematochezia, Other Genitourinary: negative: Dysuria, Frequency, Incontinence, Hematuria, Retention , Other Musculoskeletal: negative: Neck Pain, Shoulder Pain, Arm Pain, Back Pain, Hand Pain, Leg Pain, Foot Pain, Other Skin: negative: Rash, Lesions, Darian, Bruising, Other - Medications/Allergies Allergies/Adverse Reactions: Allergies Allergy/AdvReac Type Severity Reaction Status Date / Time No Known Drug Allergies Allergy Verified 04/16/17 11:38 Medications: Current Medications Acetaminophen (Tylenol) 650 mg PO Q4H PRN PRN Reason: Headache/Fever or Pain Hydrocodone Bitart/Acetaminophen ([place] 5/325) 1 tab PO Q4H PRN PRN Reason: Moderate Pain (4-6) Al Hydroxide/Mg Hydroxide (Maalox) 30 ml PO Q6H PRN PRN Reason: Heartburn or Indigestion Artificial Tears (Tears Naturale) 0 drop EA EYE PRN PRN PRN Reason: Dry Eyes Cholecalciferol (Vitamin D3) 1,000 units PO DAILY [facility] Enoxaparin Sodium (Lovenox) 40 mg SC 0900 [facility] Guaifenesin (Robitussin Sf) 200 mg PO Q4H PRN PRN Reason: Cough Hydrochlorothiazide (Hydrochlorothiazide) 25 mg PO DAILY [facility] Levofloxacin 500 mg/ Device 100 mls @ 100 mls/hr IVPB 1600 [facility] Ceftriaxone Sodium 1 gm/ (Syringe 0.4 ml/ Sterile Water) 10 mls @ 120 mls/hr SLOW IVP 1500 [facility] Iron/Minerals/Multivitamins (Theragran M) 1 tab PO DAILY [facility] Labetalol HCl (Normodyne) 10 mg SLOW IVP Q4H PRN PRN Reason: Systolic BP > 180 Loperamide HCl (Imodium) 2 mg PO PRN PRN PRN Reason: Diarrhea/Loose Stools Loratadine (Claritin) 10 mg PO DAILYPRN PRN PRN Reason: Sinus Symptoms Magnesium Hydroxide (Milk Of Magnesium) 30 ml PO DAILYPRN PRN PRN Reason: Constipation Metoprolol Succinate (Toprol Xl) 100 mg PO DAILY [facility] Mineral Oil/White Petrolatum (Eucerin Cream) 0 gm TOP BIDPRN PRN PRN Reason: Dry Skin Ondansetron HCl (Zofran Odt) 4 mg PO Q6H PRN PRN Reason: Nausea/Vomiting Ondansetron HCl (Zofran) 4 mg IVP Q6H PRN PRN Reason: Nausea/Vomiting Pantoprazole Sodium (Protonix) 40 mg PO DAILY [facility] Phenol (Chloraseptic [place] 180 Ml Bot) 0 ml PO PRN PRN PRN Reason: Sore Throat Potassium Chloride (Klor-Con 10) 10 meq PO BID-WM [facility] Saccharomyces Boulardii (Florastor) 250 mg PO DAILY [facility] Senna (Senokot) 2 tab PO HSPRN PRN PRN Reason: Constipation Simvastatin (Zocor) 20 mg PO HS [facility] Last Admin: 06/02/17 20:37 Dose: 20 mg Sodium Chloride ([place] Nasal [place] 0.65%) 0 ml EA NARE QIDPRN PRN PRN Reason: Nasal Congestion Zolpidem Tartrate (Ambien) 5 mg PO HSPRN PRN PRN Reason: Insomnia
[2017-06-03] MEDS: Potassium Chloride 10 MEQ TAB PO SCH ×2 (11:49→16:53)
[2017-06-03] MEDS: Saccharomyces boulardii 250 MG CAP PO SCH (11:49)
[2017-06-03] MEDS: Multivitamin W/ Minerals 1 TAB PO SCH (11:49)
[2017-06-03] MEDS: Enoxaparin Sodium 40 MG/0.4 ML SYRINGE SC SCH (11:50)
[2017-06-03] MEDS: Hydrochlorothiazide 25 MG TAB PO SCH (11:50)
[2017-06-03] MEDS ORDERED: cefTRIAXone\\ROCEPHIN 1 GM, Syringe 0.4 ML in Sterile Water 9.6 ML SLOW IVP SCH (15:00)
[2017-06-03] MEDS: Simvastatin 20 MG TAB PO SCH (20:36)
[2017-06-04 02:50] VITALS: TEMP 98.1
[2017-06-04 06:14] LABS: #Eosinphils 0.1 thou/uL (0.0-0.7); #Lymphocytes 0.6 thou/uL (1.20-3.40); #Neutrophils 6.3 thou/uL (1.40-6.50); %Eosinophils 0.7 % (0.0-10.0); %Lymphocytes 8.6 % (21.0-51.0); %Monocytes 0.5 % (0.0-10.0); %Neutrophils 90.2 % (42.0-75.0); Hemoglobin 9.2 g/dL (12.0-16.0); Mean Corpuscular HGB CONC 31.8 g/dL (32.0-36.0); Mean Corpuscular Hemoglobin 27.1 pg (27.0-31.0); Mean Platelet Volume 8.9 fL (7.4-10.4); Platelet Count 150 thou/uL (130-400); RBC Distribution Width 17.1 % (11.5-14.5); Red Blood Cell (RBC) Count 3.38 mill/uL (4.20-5.40)
[2017-06-04 06:40] LABS: Anion Gap 6 mmol/L (10-20); BUN (Urea Nitrogen) 7 mg/dL (9.8-20.1); Calc. Creatinine Clearance 87 mL/min (70-130); Calcium 7.5 mg/dL (7.8-10.44); Carbon Dioxide 32 mmol/L (23-31); Chloride 100 mmol/L (98-107); Estimated GFR-MDRD Greater than 90; Glucose 84 mg/dL (83-110); Potassium 3.6 mmol/L (3.5-5.1); Sodium 134 mmol/L (136-145)
[2017-06-04] MEDS ORDERED: Calcium Carbonate 500 MG ChewTAB PO PRN ×2 (08:05→08:06)
[2017-06-04 09:06] VITALS: BP 116/67
[2017-06-04] MEDS: Multivitamin W/ Minerals 1 TAB PO SCH (09:23)
[2017-06-04] MEDS: Saccharomyces boulardii 250 MG CAP PO SCH (09:23)
[2017-06-04] MEDS: Potassium Chloride 10 MEQ TAB PO SCH (09:24)
[2017-06-04] MEDS: Hydrochlorothiazide 25 MG TAB PO SCH (09:24)
[2017-06-04] MEDS: Enoxaparin Sodium 40 MG/0.4 ML SYRINGE SC SCH (09:25)
--- NOTE | 2017-06-04 09:58 | DIS ---
DATE OF ADMISSION: 06/02/2017 DATE OF DISCHARGE: 06/04/2017 PRIMARY CARE PHYSICIAN: Tracy Beatty M.D. DISCHARGE DISPOSITION: Home with home health. PRIMARY DISCHARGE DIAGNOSES: 1. Symptomatic anemia. 2. Loculated ascites from abdominal carcinomatosis. 3. Hypokalemia. 4. Hypomagnesemia. 5. Mild community-acquired pneumonia. 6. Sinus tachycardia. SECONDARY DISCHARGE DIAGNOSES: Abdominal carcinomatosis; endometrial carcinoma, on chemotherapy; ane mini of chronic disease; chronic physical deconditioning; dyslipidemia; hypertension; moderate protein -calorie malnutrition. PRIMARY PROCEDURE/OPERATION: None. RADIOLOGICAL INVESTIGATION: Chest x-ray showed no acute cardiopulmonary process. Abdominal ultrasou nd showed loculated ascites. SIGNIFICANT LABORATORY DATA: WBC 7.0, hemoglobin 9.2, platelets 150. INR 1.1. Sodium 134, potassiu m 3.6, BUN 7, creatinine 0.70, calcium 7.5, ferritin 2292. LFT normal. Urinalysis suggestive of uri nary tract infection. DISCHARGE MEDICATIONS: Dexamethasone 2 mg p.o. as directed, hydrochlorothiazide 25 mg p.o. daily, No rco 5 one tablet q.4 hourly p.r.n., Levaquin 500 mg p.o. daily for 5 more days, multivitamin 1 tablet p.o. daily, omeprazole 20 mg p.o. at bedtime, Zofran ODT 8 mg p.o. as directed, potassium chloride 1 0 mEq p.o. daily, and Zocor 20 mg p.o. at bedtime. CONTRAINDICATIONS: None. CODE STATUS: FULL CODE. INPATIENT CONSULTANTS: None. ALLERGIES: No known drug allergy. DISCHARGE PLAN: Post hospital, the patient will follow up with primary oncologist and Dr. Tracy Beatty as instructed. HOSPITAL COURSE: A 76-year-old female, who has underlying endometrial carcinoma and she is getting p eriodic chemotherapy in [place] with Oncology. The patient had routine blood test done and her oncolo gist recommended to go to local hospital for blood transfusion. Patient was also having symptoms of anemia including dyspnea on exertion, fatigue, tiredness, dizziness, lower extremity edema, and fatig ability, and considering symptomatic anemia, on admission her hemoglobin was 8.3, we gave her 1 unit of blood transfusion. Next day, her hemoglobin was 7.9 and we repeated another unit of blood transfu jacqueline, and today her hemoglobin is 9.2. The patient is feeling more energetic. On admission, she had chest x-ray, which showed left-sided effusion with infiltration. We treated as a pneumonia with Mohamud ephin and Levaquin while in hospital. On discharge, we prescribed another 5 days of Levaquin therapy . Her urinalysis is suggestive of UTI, although she was not having any symptoms of UTI, but patient is already on Levaquin therapy. The patient has physical deconditioning, but we gave her [facility] versus home with home health and the patient selected home with home health and dinorah t is why we arranged home health upon discharge. All new medication prescription sent to her pharmac y; rest of medications she will continue after discharge. We replaced all abnormal electrolytes whil e in hospital. PHYSICAL EXAMINATION: The patient is seen and examined at bedside today. VITAL SIGNS: Currently, temperature 98.1, pulse 97, respiratory rate 18, saturation 97% on room air, blood pressure 116/67, weight 183 pounds. GENERAL: The patient is currently alert, oriented, in no acute distress. HEAD: Normocephalic, atraumatic. EYES: Pupils round and reactive to light. Extraocular muscles intact. ENT: Oropharynx within normal limits. Moist mucous membranes. No oral lesions. No pharyngeal eryt prince, no exudates. NECK: Supple, no JVD, no thyromegaly, no carotid bruit. No jugular venous distention. LUNGS: Clear to auscultation without any rhonchi or rales. CARDIAC: S1 and S2 regular without any murmur. ABDOMEN: Soft and benign. EXTREMITIES: Trace lower extremity edema noted. NEUROLOGIC: Nonfocal examination. The patient is medically stable for discharge today.
--- NOTE | 2017-06-04 11:08 | PDOC.PN ---
- Subjective Encounter Start Date: 06/04/17 Encounter Start Time: 10:40 Patient seen and examined. No new complaints. No overnight events - Objective Resuscitation Status: Resuscitation Status FULL:Full Resuscitation MAR Reviewed: Yes Vital Signs & Weight: Vital Signs (12 hours) Temp Pulse Resp BP Pulse Ox 06/04/17 09:13 98.1 F 97 18 97 06/04/17 07:00 98.1 F 97 18 116/67 97 06/04/17 00:00 98.1 F 93 18 100 Weight Weight 183 lb I&O: 06/03/17 06/04/17 06/05/17 06:59 06:59 06:59 Intake Total 2125 1910 Output Total 750 1500 Balance 1375 410 Result Diagrams: 06/04/17 05:51 06/04/17 05:51 Phys Exam - Physical Examination Constitutional: NAD HEENT: PERRLA, moist MMs, sclera anicteric Neck: no JVD, supple Respiratory: no wheezing, no rales, no rhonchi Cardiovascular: RRR, no significant murmur, no rub Gastrointestinal: soft, non-tender, no distention, positive bowel sounds Musculoskeletal: pulses present, edema present Neurological: non-focal, normal sensation Psychiatric: normal affect, A&O x 3 Skin: no rash, normal turgor Dx/Plan (1) Hypokalemia Code(s): E87.6 - HYPOKALEMIA Status: Acute (2) Hypomagnesemia Code(s): E83.42 - HYPOMAGNESEMIA Status: Acute (3) Pneumonia Code(s): J18.9 - PNEUMONIA, UNSPECIFIED ORGANISM Status: Acute (4) Sinus tachycardia Code(s): R00.0 - TACHYCARDIA, UNSPECIFIED Status: Acute (5) Symptomatic anemia Code(s): D64.9 - ANEMIA, UNSPECIFIED Status: Acute (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 (7) Anemia of chronic disease Code(s): D63.8 - ANEMIA IN OTHER CHRONIC DISEASES CLASSIFIED ELSEWHERE Status : Chronic (8) Ascites Code(s): R18.8 - OTHER ASCITES Status: Chronic Qualifiers: Ascites type: malignant Qualified Code(s): R18.0 - Malignant ascites Comment: loculated ascites (9) Dyslipidemia Code(s): E78.5 - HYPERLIPIDEMIA, UNSPECIFIED Status: Chronic (10) H/O malignant neoplasm of uterine body Code(s): Z85.42 - PERSONAL HISTORY OF MALIGNANT NEOPLASM OF OTH PRT UTERUS Status: Chronic Comment: on chemotherapy (11) HTN (hypertension) Code(s): I10 - ESSENTIAL (PRIMARY) HYPERTENSION Status: Chronic Qualifiers: Hypertension type: essential hypertension Qualified Code(s): I10 - Essential (primary) hypertension (12) Malnutrition of moderate degree Code(s): E44.0 - MODERATE PROTEIN-CALORIE MALNUTRITION Status: Chronic - Plan cont current plan of care, plan discussed w/ family, continue antibiotics * medication reviewed as below * symptomatic treatment * see discharge lily. Review of Systems - Review of Systems ENT: negative: Ear Pain, Ear Discharge, Nose Pain, Nose Discharge, Nose Congestion, Mouth Pain, Mouth Swelling, Throat Pain, Throat Swelling, Other Respiratory: negative: Cough, Dry, Shortness of Breath, Hemoptysis, SOB with Excertion, Pleuritic Pain, Sputum, Wheezing Cardiovascular: negative: chest pain, palpitations, orthopnea, paroxysmal nocturnal dyspnea, edema, light headedness, other Gastrointestinal: negative: Nausea, Vomiting, Abdominal Pain, Diarrhea, Constipation, Melena, Hematochezia, Other Genitourinary: negative: Dysuria, Frequency, Incontinence, Hematuria, Retention , Other Musculoskeletal: negative: Neck Pain, Shoulder Pain, Arm Pain, Back Pain, Hand Pain, Leg Pain, Foot Pain, Other Skin: negative: Rash, Lesions, Darian, Bruising, Other - Medications/Allergies Allergies/Adverse Reactions: Allergies Allergy/AdvReac Type Severity Reaction Status Date / Time No Known Drug Allergies Allergy Verified 04/16/17 11:38 Medications: Current Medications Acetaminophen (Tylenol) 650 mg PO Q4H PRN PRN Reason: Headache/Fever or Pain Hydrocodone Bitart/Acetaminophen ([place] 5/325) 1 tab PO Q4H PRN PRN Reason: Moderate Pain (4-6) Al Hydroxide/Mg Hydroxide (Maalox) 30 ml PO Q6H PRN PRN Reason: Heartburn or Indigestion Artificial Tears (Tears Naturale) 0 drop EA EYE PRN PRN PRN Reason: Dry Eyes Calcium Carbonate (Tums) 500 mg PO Q4H PRN PRN Reason: INDIGESTION Calcium Carbonate (Tums) 1,000 mg PO Q4H PRN PRN Reason: INDIGESTION Cholecalciferol (Vitamin D3) 1,000 units PO DAILY [facility] Last Admin: 06/04/17 09:24 Dose: Not Given Enoxaparin Sodium (Lovenox) 40 mg SC 0900 [facility] Last Admin: 06/04/17 09:25 Dose: 40 mg Guaifenesin (Robitussin Sf) 200 mg PO Q4H PRN PRN Reason: Cough Hydrochlorothiazide (Hydrochlorothiazide) 25 mg PO DAILY [facility] Last Admin: 06/04/17 09:24 Dose: 25 mg Levofloxacin 500 mg/ Device 100 mls @ 100 mls/hr IVPB 1600 [facility] Last Admin: 06/03/17 16:55 Dose: 100 mls Ceftriaxone Sodium 1 gm/ (Syringe 0.4 ml/ Sterile Water) 10 mls @ 120 mls/hr SLOW IVP 1500 [facility] Last Admin: 06/03/17 16:53 Dose: 10 mls Iron/Minerals/Multivitamins (Theragran M) 1 tab PO DAILY [facility] Last Admin: 06/04/17 09:23 Dose: 1 tab Labetalol HCl (Normodyne) 10 mg SLOW IVP Q4H PRN PRN Reason: Systolic BP > 180 Loperamide HCl (Imodium) 2 mg PO PRN PRN PRN Reason: Diarrhea/Loose Stools Loratadine (Claritin) 10 mg PO DAILYPRN PRN PRN Reason: Sinus Symptoms Magnesium Hydroxide (Milk Of Magnesium) 30 ml PO DAILYPRN PRN PRN Reason: Constipation Metoprolol Succinate (Toprol Xl) 100 mg PO DAILY [facility] Last Admin: 06/04/17 09:25 Dose: Not Given Mineral Oil/White Petrolatum (Eucerin Cream) 0 gm TOP BIDPRN PRN PRN Reason: Dry Skin Ondansetron HCl (Zofran Odt) 4 mg PO Q6H PRN PRN Reason: Nausea/Vomiting Ondansetron HCl (Zofran) 4 mg IVP Q6H PRN PRN Reason: Nausea/Vomiting Pantoprazole Sodium (Protonix) 40 mg PO DAILY [facility] Last Admin: 06/04/17 09:23 Dose: Not Given Phenol (Chloraseptic [place] 180 Ml Bot) 0 ml PO PRN PRN PRN Reason: Sore Throat Potassium Chloride (Klor-Con 10) 10 meq PO BID-[facility] Last Admin: 06/04/17 09:24 Dose: 10 meq Saccharomyces Boulardii (Florastor) 250 mg PO DAILY [facility] Last Admin: 06/04/17 09:23 Dose: 250 mg Senna (Senokot) 2 tab PO HSPRN PRN PRN Reason: Constipation Simvastatin (Zocor) 20 mg PO [facility] Last Admin: 06/03/17 20:36 Dose: 20 mg Sodium Chloride ([place] Nasal [place] 0.65%) 0 ml EA NARE QIDPRN PRN PRN Reason: Nasal Congestion Sodium Chloride (Flush - Normal Saline) 10 ml IVF Q12HR [facility] Last Admin: 06/04/17 09:25 Dose: 10 ml Sodium Chloride (Flush - Normal Saline) 10 ml IVF PRN PRN PRN Reason: Saline Flush Zolpidem Tartrate (Ambien) 5 mg PO HSPRN PRN PRN Reason: Insomnia Last Admin: 06/04/17 01:12 Dose: 5 mg
[2017-06-04 14:48] LABS: Magnesium 1.6 mg/dL (1.6-2.6)
[2017-06-04 14:50] LABS: Phosphorus 1.3 mg/dL (2.3-4.7)
--- NOTE | 2017-06-08 18:04 | EKG ---
Test Reason : TACHYCARDIA Blood Pressure : / mmHG Vent. Rate : 117 BPM Atrial Rate : 117 BPM P-R Int : 122 ms QRS Dur : 074 ms QT Int : 324 ms P-R-T Axes : 020 -12 042 degrees QTc Int : 451 ms Sinus tachycardia Otherwise normal ECG Confirmed by FLAKITO IVORY, KAMARI ([id number]), mapping editor MARTY GLEASON ([id number]) on 06/08/2017 6:03:32 PM Referred By: Confirmed By:KAMARI FRAGA MD
== END 2017-06-04 13:46 | disposition home health service (06) | DRG 754 ==
LOC: ERS 10:09 → ONC 17:03
PROVIDERS: ADMIT Internal Medicine; ATTEND Internal Medicine
PROC: 30233N1 Transfusion of Nonautologous Red Blood Cells into Peripheral Vein, Percutaneous Approach (ICD-10-PCS; principal; 2017-06-02)
DX: C54.1 Malignant neoplasm of endometrium (principal); J18.9 Pneumonia, unspecified organism; R18.0 Malignant ascites; E44.0 Moderate protein-calorie malnutrition; C78.6 Secondary malignant neoplasm of retroperitoneum and peritoneum; D63.0 Anemia in neoplastic disease; E83.42 Hypomagnesemia; I10 Essential (primary) hypertension; K21.9 Gastro-esophageal reflux disease without esophagitis; E78.5 Hyperlipidemia, unspecified; E87.6 Hypokalemia; R53.81 Other malaise
CPT/HCPCS: 36415; 36430; 71046; 76705; 80048; 80053; 81001; 82728; 83540; 83550; 83735; 84100; 85025; 85610; 85730; 86850; 86900; 86901; 90471; 90670; 90682; 93005; 96361; 96365; 96367; A4216; G0008; G0009; G8978-GP-CM; G8979-GP-CK; G8987-GO-CL; G8988-GO-CJ; J0696; J1650; J1956; J3475; J7050; P9016; Q2036

== ENCOUNTER 2017-06-22 07:22 | Day surgery (SDC) | payer MEDICARE, OTHER ==
[2017-06-22] MEDS ORDERED: diphenhydrAMINE 25 MG CAP PO SCH (11:00)
[2017-06-22] MEDS ORDERED: Acetaminophen 500 MG TAB PO SCH (11:00)
[2017-06-22 17:34] VITALS: BP 137/74; TEMP 99
[2017-06-22 19:25] LABS: #Lymphocytes 1.4 thou/uL (1.20-3.40); #Monocytes 0.4 thou/uL (0.11-0.59); #Neutrophils 5.8 thou/uL (1.40-6.50); %Basophils 0.2 % (0.0-1.0); %Eosinophils 0.3 % (0.0-10.0); %Lymphocytes 18.1 % (21.0-51.0); %Neutrophils 76.4 % (42.0-75.0); Hemoglobin 10.3 g/dL (12.0-16.0); Mean Corpuscular HGB CONC 32.3 g/dL (32.0-36.0); Mean Corpuscular Volume 83.8 fl (81.0-99.0); Mean Platelet Volume 9.2 fL (7.4-10.4); Platelet Count 257 thou/uL (130-400); RBC Distribution Width 19.4 % (11.5-14.5); Red Blood Cell (RBC) Count 3.82 mill/uL (4.20-5.40); White Blood Cell (WBC) Count 7.6 thou/uL (4.8-10.8)
== END 2017-06-22 19:10 | disposition home or self-care (01) ==
LOC: ONC/OP 07:22
PROVIDERS: ATTEND Internal Medicine Hematology & Oncology
PROC: 30233N1 Transfusion of Nonautologous Red Blood Cells into Peripheral Vein, Percutaneous Approach (ICD-10-PCS; principal; 2017-06-22)
DX: C54.1 Malignant neoplasm of endometrium (principal); C76.2 Malignant neoplasm of abdomen; D63.0 Anemia in neoplastic disease; R18.0 Malignant ascites; I10 Essential (primary) hypertension; E78.5 Hyperlipidemia, unspecified; F32.9 Major depressive disorder, single episode, unspecified; F41.9 Anxiety disorder, unspecified; K21.9 Gastro-esophageal reflux disease without esophagitis; E44.0 Moderate protein-calorie malnutrition; Z68.29 Body mass index [BMI] 29.0-29.9, adult
CPT/HCPCS: 36430; 85025; 86850; 86900; 86901; P9016

== ENCOUNTER 2017-08-09 08:05 | Inpatient (IN) | payer MEDICARE, OTHER ==
[2017-08-09 08:42] LABS: #Eosinphils 0.2 thou/uL (0.0-0.7); #Lymphocytes 0.9 thou/uL (1.20-3.40); #Monocytes 0.1 thou/uL (0.11-0.59); #Neutrophils 11.2 thou/uL (1.40-6.50); %Eosinophils 1.3 % (0.0-10.0); %Lymphocytes 7.5 % (21.0-51.0); %Monocytes 0.6 % (0.0-10.0); %Neutrophils 90.7 % (42.0-75.0); Hemoglobin 10.2 g/dL (12.0-16.0); Mean Corpuscular HGB CONC 31.9 g/dL (32.0-36.0); Mean Corpuscular Hemoglobin 27.1 pg (27.0-31.0); Mean Corpuscular Volume 84.9 fl (81.0-99.0); Mean Platelet Volume 7.5 fL (7.4-10.4); Platelet Count 297 thou/uL (130-400); RBC Distribution Width 18.6 % (11.5-14.5); Red Blood Cell (RBC) Count 3.76 mill/uL (4.20-5.40); White Blood Cell (WBC) Count 12.4 thou/uL (4.8-10.8)
[2017-08-09 09:02] LABS: ALT (SGPT) 10 U/L (8-55); AST (SGOT) 16 U/L (5-34); Albumin 2.7 g/dL (3.4-4.8); Alkaline Phosphatase 67 U/L (40-150); Anion Gap 9 mmol/L (10-20); BUN (Urea Nitrogen) 16 mg/dL (9.8-20.1); Bilirubin, Total 0.3 mg/dL (0.2-1.2); Calc. Creatinine Clearance 0 mL/min (70-130); Carbon Dioxide 31 mmol/L (23-31); Chloride 100 mmol/L (98-107); Estimated GFR-MDRD 90; Globulin 3.3 g/dL (2.4-3.5); Glucose 110 mg/dL (83-110); Lipase 20 U/L (8-78); Potassium 4.3 mmol/L (3.5-5.1); Sodium 136 mmol/L (136-145)
[2017-08-09 09:41] LABS: Bilirubin Negative (Negative); Blood, Urine Negative (Negative); Clarity CLEAR (Clear); Glucose, Urine (Dipstick) Negative (Negative); Leukocyte Small (Negative); Nitrite Negative (Negative); Protein, Urine (Dipstick) Negative (Neg-Trace); Specific Gravity, Urine 1.036 (1.002-1.036); Urobilinogen 0.2 mg/dL (0.2-1.0); pH, Urine 7.5 (5.0-9.0)
[2017-08-09 09:42] LABS: Bacteria/HPF None Seen HPF (None Seen); Hyaline Casts/LPF 0-3 HYALINE CAST LPF (0-3 Hyaline); Pathc Cast-AUWi Flag 0.43 (0-2.49); Squamous Epithelial 0-3 HPF (0-3)
[2017-08-09 09:43] LABS: Yeast-AUWi Flag 67.3 (0-25.0)
[2017-08-09 09:51] LABS: RBC/HPF 0-3 HPF (0-3)
[2017-08-09 09:52] LABS: Yeast-All Forms None Seen HPF (None Seen)
--- NOTE | 2017-08-09 10:16 | CT ---
CT ABDOMEN WITH CONTRAST CT PELVIS WITH CONTRAST: DATE: 08/09/17 HISTORY: 77-year-old female with endometrial carcinoma. Presents to the emergency department with nausea, vomi ting, and diarrhea. Generalized abdominal pain, mostly in the left upper quadrant. COMPARISON: 04/14/17. TECHNIQUE: IV injection of iodinated contrast media: 100 mL [id number]. Oral contrast media: Not administered. FINDINGS: The previously demonstrated moderate anasarca has worsened somewhat. The free intraperitoneal fluid h as decreased in volume and is currently small. The previously demonstrated tunneled right-sided perit hays catheter has been removed. There is a large volume of colonic stool. No signs of acute colonic diverticulitis. Normal segments of appendix visualized in the right pelvic inlet. The previously demonstrated fluid-filled mass in the uterine fundus containing calcifications and sof t tissue density nodules has worsened. Previously, that fluid-filled cavity measured approximately 7 x 5.5 x 6 cm. It currently measures approximately 9 x 6.5 x 7.5 cm. Furthermore, there has been drama tic interval growth of one or more of the solid nodules within this cystic mass. Previously, the larg est of these solid nodules was approximately 2 x 1.5 x 1.5 cm. Currently, the largest solid nodule is 6 x 5 x 7 cm. The previously demonstrated soft tissue density nodule abutting the inferior tip of the right lobe of the liver, within the right lateral aspect of the peritoneal cavity, is currently either resolved or very small (visible only on coronal image 73 of 147, series 601), measuring slightly less than 1 cm in size. No evidence of hepatic metastases. Tiny hypodensity in hepatic segment IV a or b is probably a cyst, and is unchanged. No major pathology of the bilateral kidneys, pancreas, abdominal aorta, or spleen. There is a new 1.5 x 1.5 cm right adrenal nodule, probably representing a metastasis. There are multi ple small bowel loops in the right side of the abdominal cavity that have mural enhancement and mural thickening, consistent with an enteritis. There are multiple fluid-filled small bowel loops in the m idline and left side of the abdominal cavity, many of which are borderline dilated up to 3 cm. No def inite transition point is identified. Again demonstrated is the old L1 compression fracture. The prev iously small right pleural effusion has increased in size, and currently occupies an estimated 20% vo lume of the right hemithorax. The previously demonstrated moderate size left pleural effusion is larg er now, and there is a greater, more severe degree of atelectasis of the left lower lobe. The space between the superior mesenteric artery and the abdominal aorta is 0.6 cm, and the third sta ge of the duodenum passing through this level is very narrowed. However, the stomach is not distended . IMPRESSION: 1. Findings suggestive of an enteritis, more specifically an ileitis. 2. Constipation. 3. Interval worsening of anasarca and bilateral pleural effusions. 4. Associated interval worsening of severe atelectasis or left lower lobe. 5. Interval decrease in volume of ascites, currently small. 6. Interval significant increase in size of the uterine solid and cystic mass, is evidence for endom etrial carcinoma as given in the history. 7. Interval removal of the peritoneal tunneled catheter. 8. The intraperitoneal tumor seed abutting the inferior tip of the right lobe of the liver, has eith er resolved or is much smaller. 9. Evidence for new small right adrenal metastasis. 10. The space between the superior mesenteric artery and the abdominal aorta is narrow, as previousl y demonstrated, and the third stage of the duodenum is very narrowed. However, the stomach is not dis tended. It is uncertain whether or not this represents superior mesenteric artery syndrome or not. Cl inical correlation is recommended. [place] POS: [facility]
[2017-08-09] MEDS ORDERED: Ondansetron ODT 4 MG TAB SL PRN (14:02)
[2017-08-09] MEDS ORDERED: Sodium Chloride 0.9% 1,000 ML IV SCH (14:02)
[2017-08-09] MEDS ORDERED: Acetaminophen 325 MG TAB PO PRN ×2 (14:02→15:01)
[2017-08-09] MEDS ORDERED: Ondansetron HCl/PF 4 MG/2 ML Vial IVP PRN ×2 (14:02→15:01)
[2017-08-09] MEDS ORDERED: HYDROcodone/Acetaminophen 5/325 mg Tablet PO PRN (15:01)
[2017-08-09] MEDS ORDERED: Guaifenesin DM 100-10/5 ML UDCUP PO PRN (15:01)
[2017-08-09] MEDS ORDERED: ISOVUE-370 76%-LOCM 1 ML ONE (15:11)
[2017-08-09 16:25] VITALS: BMI 30.2
[2017-08-09] MEDS: MEROPENEM 1 GM/50 ML 1 GM in Premix Bag 1 BAG IVPB SCH (16:50)
--- NOTE | 2017-08-09 17:08 | CON ---
DATE OF CONSULTATION: 08/09/2017 REASON FOR CONSULTATION: Uterine cancer. HISTORY OF PRESENT ILLNESS: Ms. Winkler is a 77-year-old female who was diagnosed with high-grade parminder llary carcinoma of the uterus in 2017. She underwent chemotherapy and had progression with malignant ascites and pleural effusions. She sees Dr. Marlee Rios at [facility] in [facility] and has been receiving Avastin in our clinic. Her last dose was on 07/19/2017. She had a CT sca n on 07/25/2017 which showed stable disease. Yesterday, she had an acute abdominal pain associated w ith nausea and vomiting. Her last BM was yesterday. She is on MiraLax and a stool softener. She do es use occasional narcotics for pain. She has had a good appetite. She presented to the emergency r oom, CT of the abdomen suggested an enteritis or an ileitis. She had large amount of stool. She has been admitted for further evaluation. The patient was seen at bedside. She actually denies any abd ominal pain at this time. She states she is passing gas and has had no vomiting since admission. PAST MEDICAL HISTORY: 1. 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 2. Hypertension. 3. Acid reflux. 4. High cholesterol. PAST SURGICAL HISTORY: 1. . 2. Tubal ligation. 3. Peritoneal catheter placement and removal. 4. MediPort placement. ALLERGIES: No known drug allergies. HOME MEDICATIONS: 1. Hydrochlorothiazide 25 mg daily. 2. Hydrocodone p.r.n. 3. Prilosec 20 mg daily. 4. Potassium chloride 10 mEq daily. 5. Simvastatin daily. FAMILY HISTORY: Sister had kidney cancer. SOCIAL HISTORY: . Has one child. Lives with her sister currently. No alcohol, tobacco or i llicit drug use. REVIEW OF SYSTEMS: Constitutional: Denies fever, chills, night sweats, recent weight loss or gain. Eyes: No blurred or double vision. ENT: No pain, hoarseness, sore throat, dysphagia. Cardiovascu lar: No chest pain, palpitations, syncope. Respiratory: No shortness breath, dyspnea on exertion o r orthopnea. Gastrointestinal: Positive for nausea, vomiting, constipation, and abdominal pain. Ge nitourinary: No dysuria or hematuria. Musculoskeletal: No joint or back pain. Skin: No rash or p ruritus. Hematologic: No bleeding, bruising or clotting. Neurologic: Denies weakness, headache, n umbness, tingling or seizure activity. Psychiatric: No anxiety or depression. PHYSICAL EXAMINATION: VITAL SIGNS: Temperature 97.9, pulse is 89, respiratory rate 16, BP is 159/94. She is 94% on room a ir. GENERAL: This is a chronically ill-appearing female in no acute distress. HEENT: Normocephalic, atraumatic. Pupils are equal and reactive to light. She has alopecia. NECK: Supple. HEART: Regular rate and rhythm. LUNGS: Clear. ABDOMEN: Soft, nontender, bowel sounds are hypoactive. EXTREMITIES: She has 1+ bilateral lower extremity. SKIN: No rash. HEMATOLOGIC: No petechia or purpura. NEUROLOGICAL: Nonfocal. PSYCHIATRIC: The patient is alert and oriented and answering questions appropriately. PERTINENT LABORATORY AND X-RAYS: Current WBCs are 12.4, hemoglobin 10.2, hematocrit 31.9, platelet c ount is 297,000, 91% neutrophils, 8% lymphocytes. Sodium 136, potassium 4.3, chloride 100, CO2 is 31 , BUN is 16, creatinine 0.79, calcium is 9.0, total bilirubin is 0.3, AST is 16, ALT is 10, alkaline phosphatase is 67, serum total protein is 6, albumin 2.7, globulin 3.3, lipase is 20. Urine is negat tunde for bacteria. Radiology per HPI. IMPRESSION: 1. 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 2. Nausea, vomiting, possible ileitis. DISCUSSION: Patient sees Dr. Rios in [place] and is managed there. Recent CT scan showed stabl e disease I believe she is on Avastin. She has seen Dr. Webber in the past and we have discussed at length at hospice. The patient has refused multiple times. We would recommend pain control and sup portive care. Surgical consult if felt needed by the [facility]. However, she is passing gas and her abdominal pain has much improved. She sees Dr. Rios within the next week. Thank you for the consult. We will follow her hospital course remotely.
[2017-08-09] MEDS: Sodium Chloride 0.9% 1,000 ML IV SCH (17:31)
[2017-08-09] MEDS: Atorvastatin Calcium 10 MG TAB PO SCH (20:47)
[2017-08-09] MEDS: Docusate 100 MG CAP PO SCH (20:47)
[2017-08-09] MEDS: Famotidine 20 MG TAB PO SCH (20:47)
--- NOTE | 2017-08-09 21:50 | HP ---
REASON FOR ADMISSION: Nausea and vomiting with possible ileal enteritis. HISTORY OF PRESENTING ILLNESS: Patient gives history of feeling very nauseous from last night. She could not sleep at all. This morning around 5:00 a.m., she had a large amount of vomiting x1. No di arrhea. She had a normal stool 2 hours prior to arrival here. No diarrhea. No blood or mucus in th e stool. Patient has known history of endometrial cancer stage IV and is receiving chemotherapy from Dr. Whalen at [facility]. She is on Avastin and Taxol. No complaints of chest pain, shor tness of breath, fever, palpitations, or PND. She normally ambulates very minimally with a rolling w alker and has been actively getting physical therapy at home. PAST MEDICAL AND SURGICAL HISTORY: History of endometrial cancer stage IV, multiple paracentesis don e, the last one was 3 weeks back. The daughter mentions that her volume of paracentesis is decreasin g after she has been placed on Avastin now. Hypertension. MediPort. GERD, dyslipidemia, and protei n calorie malnutrition due to cancer. PERSONAL HISTORY: Does not abuse alcohol or drugs. No history of smoking. She lives with her famil y. FAMILY HISTORY: Mother at the age of 89 years. She also had coronary artery disease. Father l ived up to 99 years and of old age. CURRENT MEDICATIONS: Patient is on Avastin Taxol, simvastatin 20 mg at bedtime, vitamin D3 1000 unit s p.o. daily, Toprol-XL 100 mg p.o. daily, multivitamin 1 tab once daily, omeprazole 20 mg daily, Nap rosyn p.r.n., [place] p.r.n., and hydrochlorothiazide 25 mg daily. ALLERGIES: No known drug allergies. REVIEW OF SYSTEMS: The following complete review of systems was negative, unless otherwise mentioned in the HPI or below: Constitutional: Weight loss or gain, ability to conduct usual activities. Sk in: Rash, itching. Eyes: Double vision, pain. ENT/Mouth: Nose bleeding, neck stiffness, pain, te nderness. Cardiovascular: Palpitations, dyspnea on exertion, orthopnea. Respiratory: Shortness of breath, wheezing, cough, hemoptysis, fever or night sweats. Gastrointestinal: Poor appetite, abdom inal pain, heartburn, nausea, vomiting, constipation, or diarrhea. Genitourinary: Urgency, frequenc y, dysuria, nocturia. Musculoskeletal: Pain, swelling. Neurologic/Psychiatric: Anxiety, depressio n. Allergy/Immunologic: Skin rash, bleeding tendency. PHYSICAL EXAMINATION: GENERAL: The patient is a 77-year-old female who is currently not in any acute distress. VITAL SIGNS: Blood pressure 156/93, pulse 100 per minute, respiratory rate 18 per minute, temperatur e 98 degrees Fahrenheit, and saturating 94% on room air. NECK: Supple, no elevated JVD. HEENT: Eyes, extraocular muscles intact. Pupils reacting to light. Oral cavity, mucous membranes a re dry. No exudates or congestion. CARDIOVASCULAR: S1, S2 heard. Regular rhythm. RESPIRATORY: Air entry 1+ bilateral. Scattered rhonchi plus bilateral. ABDOMEN: Mildly distended, has voluntary guarding noted. No rigidity or rebound. Bowel sounds are heard. EXTREMITIES: There is peripheral edema, no calf tenderness. VASCULAR SYSTEM: Peripheral pulses 1+ bilateral, no ischemic ulcerations or gangrene. CENTRAL NERVOUS SYSTEM: No gross focal deficits seen. The patient moves all 4 extremities. PSYCHIATRIC: Patient's mood is euthymic. No hallucinations or delusions. LABORATORY AND X-RAY FINDINGS: White count of 12, H&H 10 and 31, platelet count 297, MCV is 84 with 90% neutrophils. Electrolytes are stable. BUN 16, creatinine 0.7, glucose is 110. Liver enzymes ar e within normal limits. Albumin is 2.7. UA shows small leukocyte esterase with 11-20 wbc's, no bact eria seen. CT of the abdomen and pelvis done shows multiple findings, but acute finding suggestive o f enteritis, more specifically I ileitis. There is also findings of constipation. There is also wor sening of anasarca with bilateral pleural effusion seen. There is associated severe atelectasis of l eft lower lobe, evidence of endometrial carcinoma. There is a small right adrenal metastasis seen. EKG done shows normal sinus rhythm at 95 beats per minute. There is poor R-wave progression. CLINICAL IMPRESSION AND PLAN: Patient will be admitted to Oncology floor for possible ileitis with n ausea and vomiting. She has known history of stage IV endometrial carcinoma, on Avastin and Taxol. We will place her on meropenem and gentle IV hydration with normal saline at 50 mL per hour. Gastroe nterology consultation with Dr. Miranda will be requested. Patient will be continued on Lipitor, Col solo for now. Patient has constipation and we will also add MiraLax 17 g daily. We will also continu e her Toprol-XL. Patient will be on clear liquid diet until Gastroenterology clears her. Blood and urine cultures have been obtained in the ER. We will obtain stool cultures as well along with Clostr idium difficile, Peptoclostridium difficile. Her overall prognosis is guarded in view of stage IV en dometrial carcinoma. Patient follows up with Dr. Whalen at [facility]. CODE STATUS: Full. Power of bid clerk is her daughter, Ms. Lilia Bird, number to reach her is [phone]. We will continue to closely monitor her on oncology floor.
[2017-08-10] MEDS: MEROPENEM 1 GM/50 ML 1 GM in Premix Bag 1 BAG IVPB SCH ×3 (00:08→16:04)
[2017-08-10 05:51] LABS: #Eosinphils 0.2 thou/uL (0.0-0.7); #Lymphocytes 1.2 thou/uL (1.20-3.40); #Monocytes 0.1 thou/uL (0.11-0.59); #Neutrophils 7.6 thou/uL (1.40-6.50); %Basophils 0.1 % (0.0-1.0); %Eosinophils 2.7 % (0.0-10.0); %Lymphocytes 13.1 % (21.0-51.0); %Monocytes 0.7 % (0.0-10.0); %Neutrophils 83.4 % (42.0-75.0); Mean Corpuscular HGB CONC 31.7 g/dL (32.0-36.0); Mean Corpuscular Hemoglobin 26.9 pg (27.0-31.0); Mean Corpuscular Volume 84.8 fl (81.0-99.0); Mean Platelet Volume 7.5 fL (7.4-10.4); Platelet Count 239 thou/uL (130-400); Red Blood Cell (RBC) Count 3.36 mill/uL (4.20-5.40); White Blood Cell (WBC) Count 9.1 thou/uL (4.8-10.8)
[2017-08-10 06:09] LABS: Anion Gap 9 mmol/L (10-20); BUN (Urea Nitrogen) 12 mg/dL (9.8-20.1); Calc. Creatinine Clearance 97 mL/min (70-130); Calcium 8.2 mg/dL (7.8-10.44); Carbon Dioxide 30 mmol/L (23-31); Chloride 101 mmol/L (98-107); Estimated GFR-MDRD Greater than 90; Glucose 77 mg/dL (83-110); Sodium 136 mmol/L (136-145)
[2017-08-10] MEDS: Docusate 100 MG CAP PO SCH (08:01)
[2017-08-10] MEDS: Enoxaparin Sodium 40 MG/0.4 ML SYRINGE SC SCH (08:01)
[2017-08-10] MEDS: Famotidine 20 MG TAB PO SCH ×2 (08:01→20:11)
--- NOTE | 2017-08-10 10:24 | PDOC.PN ---
- Subjective Encounter Start Date: 08/10/17 Encounter Start Time: 10:20 Subjective: no nausea or vomiting -: is tolerating clear liq diet -: had 1 stool last evening, no diarrhea per patient - Objective Resuscitation Status: Resuscitation Status FULL:Full Resuscitation MAR Reviewed: Yes Vital Signs & Weight: Vital Signs (12 hours) Temp Pulse Resp BP Pulse Ox 08/10/17 08:00 98.2 F 91 16 159/74 H 98 08/10/17 05:25 98.1 F 94 16 150/74 H 100 08/10/17 00:00 97.9 F 90 16 145/70 H 99 Weight Weight 187 lb I&O: 08/09/17 08/10/17 08/11/17 06:59 06:59 06:59 Intake Total 1077 Output Total 500 Balance 577 Result Diagrams: 08/10/17 05:24 08/10/17 05:24 Phys Exam - Physical Examination HEENT: PERRLA, moist MMs Neck: no JVD, supple Respiratory: no wheezing, no rales Cardiovascular: RRR, no significant murmur Gastrointestinal: soft, positive bowel sounds distention and abd wall edema chronic+ Musculoskeletal: pulses present, edema present Neurological: non-focal, moves all 4 limbs Psychiatric: A&O x 3 Dx/Plan (1) Ileitis Code(s): K52.9 - NONINFECTIVE GASTROENTERITIS AND COLITIS, UNSPECIFIED Status : Acute (2) 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 - MALIGNANT NEOPLASM OF ABDOMEN Status: Chronic (3) Anemia of chronic disease Code(s): D63.8 - ANEMIA IN OTHER CHRONIC DISEASES CLASSIFIED ELSEWHERE Status : Chronic (4) Ascites Code(s): R18.8 - OTHER ASCITES Status: Chronic Qualifiers: Ascites type: malignant (5) Dyslipidemia Code(s): E78.5 - HYPERLIPIDEMIA, UNSPECIFIED Status: Chronic (6) H/O malignant neoplasm of uterine body Code(s): Z85.42 - PERSONAL HISTORY OF MALIGNANT NEOPLASM OF OTH PRT UTERUS Status: Chronic Comment: on chemotherapy (7) HTN (hypertension) Code(s): I10 - ESSENTIAL (PRIMARY) HYPERTENSION Status: Chronic Qualifiers: Hypertension type: essential hypertension (8) Malnutrition of moderate degree Code(s): E44.0 - MODERATE PROTEIN-CALORIE MALNUTRITION Status: Chronic (9) Nausea & vomiting Code(s): R11.2 - NAUSEA WITH VOMITING, UNSPECIFIED Status: Resolved Qualifiers: Vomiting type: unspecified - Plan will switch to full liquid diet -: stool sample for tests -: gentle iv hydration, will dc if tolerating liq diet -: last paracentesis 3 wks back -: is on meropenem, is chronically deconditioned * . Review of Systems - Medications/Allergies Allergies/Adverse Reactions: Allergies Allergy/AdvReac Type Severity Reaction Status Date / Time No Known Drug Allergies Allergy Verified 08/09/17 16:23 Medications: Current Medications Acetaminophen (Tylenol) 650 mg PO Q4H PRN PRN Reason: Headache/Fever or Pain Hydrocodone Bitart/Acetaminophen ([place] 5/325) 1 tab PO Q4HR PRN PRN Reason: Pain Atorvastatin Calcium (Lipitor) 10 mg PO HS [facility] Last Admin: 08/09/17 20:47 Dose: 10 mg Enoxaparin Sodium (Lovenox) 40 mg SC 0900 [facility] Last Admin: 08/10/17 08:01 Dose: 40 mg Famotidine (Pepcid) 20 mg PO BID [facility] Last Admin: 08/10/17 08:01 Dose: 20 mg Guaifenesin/Dextromethorphan (Robitussin Dm) 15 ml PO Q4H PRN PRN Reason: Cough Meropenem 1 gm/ Device 50 mls @ 100 mls/hr IVPB 0800,1600,2359 [facility] Last Admin: 08/10/17 08:00 Dose: 50 mls Sodium Chloride (Normal Saline 0.9%) 1,000 mls @ 50 mls/hr IV .Q20H [facility] Last Admin: 08/09/17 17:31 Dose: 1,000 mls Metoprolol Succinate (Toprol Xl) 100 mg PO DAILY [facility] Last Admin: 08/10/17 08:01 Dose: 100 mg Ondansetron HCl (Zofran) 4 mg IVP Q6H PRN PRN Reason: Nausea/Vomiting Polyethylene Glycol (Miralax) 17 gm PO DAILY [facility]
[2017-08-10] MEDS: Sodium Chloride 0.9% 1,000 ML IV SCH (14:45)
--- NOTE | 2017-08-10 15:41 | CON ---
DATE OF CONSULTATION: 08/10/2017. REASON FOR CONSULTATION: Enteritis. CONSULTING PHYSICIAN: Dr.Vinaya Kennedy. HISTORY OF PRESENT ILLNESS: The patient is a 77-year-old female with past medical history of hyperte nsion, GERD, hyperlipidemia, and stage IV papillary carcinoma of the uterus complicated by malignant ascites, presenting with complaints of increased abdominal pain, nausea, and vomiting. Per chart rev iew, she has been seen by an oncologist in [place] and had been receiving Avastin and Taxol as part of a chemotherapy regimen related to her uterine cancer. The last dose of her chemotherapy was on 09/[address] scan shortly thereafter on 07/25/2017 showing stable disease; however, over the last week, she says she started having increased nausea, vomiting, and abdominal pain. The abdominal karyna n characterized as an aching type sensation, nonradiating, located in the periumbilical region and re aching an 8/10 in severity. The pain was worse with possible twisting movements only and with no oth er clear exacerbating factors. There were also no clear alleviating factors despite the use of pain medications as an outpatient. With the abdominal pain, also came nausea and vomiting, having approxi mately 4-5 discrete episodes of vomiting per day of nonbloody emesis. With a combination of all thes e symptoms, it is what prompted her to come in for evaluation. Per evaluation by the ER, she was not ed to have findings suggestive of an enteritis or ileitis on the CT scan as well as a large amount of stool and progression of her uterine disease. At the current point in time, she denies any fevers, chills, dysphagia, odynophagia, diarrhea, constipation or weight gain. She also states that she is h aving approximately 1-2 semi-solid to solid bowel movements per day as an outpatient while on a Vasyl ax regimen. REVIEW OF SYSTEMS: A 10 category review of systems was obtained with all responses negative except f or those listed in the HPI. PAST MEDICAL HISTORY: As per HPI. PAST SURGICAL HISTORY: MediPort placement, peritoneal catheter placement and removal, bilateral tuba l ligation and . FAMILY HISTORY: Denies any GI malignancy, although there is a history of renal cell carcinoma. SOCIAL HISTORY: Denies any tobacco, alcohol or illicit drug use. HOME MEDICATIONS: Reviewed. ALLERGIES: No known drug allergies. PHYSICAL EXAMINATION: VITAL SIGNS: Temperature 98.2, pulse 91, blood pressure 159/74, respiratory rate 16, satting 98% on room air. GENERAL: The patient is lying in bed in no acute distress. Alert and oriented x4. NECK: Supple. No JVD noted. CARDIOVASCULAR: Regular rate and rhythm with no discernible murmurs, gallops or rubs. RESPIRATORY: Clear to auscultation bilaterally with no discernible wheezes or rales. ABDOMEN: Hypoactive bowel sounds, soft. Mild abdominal distention. Tenderness to palpation in the periumbilical region. EXTREMITIES: A 1+/2+ bilateral lower extremity edema extending to about mid mendes. LABORATORY DATA: CBC with a white blood cell count of 9.1, hemoglobin 9, hematocrit 28.4, platelets 239. Chemistry with a sodium of 136, potassium 4, chloride 101, CO2 30, BUN 12, creatinine 0.63, glu cose 77, AST 16, ALT 10, alkaline phosphatase 67, total bilirubin 0.3, lipase 10. Urinalysis was neg ative for bacteria, but showing increased white blood cells as well as leukocyte esterase, concerning for possible UTI. IMAGING DATA: CT abdomen and pelvis obtained on 08/09/2017 showed increased anasarca when compared t o previous, as well as increased colonic stool. The uterine mass is worsened measuring approximately 9 x 6.5 x 7 cm in diameter, which is increased from previous. No evidence of liver metastases, but there was also noticed multiple small bowel loops in the right side with mural enhancement and mural thickening concerning for possible ileitis. There was also narrowing of the superior mesenteric rajeev ry and the space between that artery and the aorta concerning for superior mesenteric artery syndrome . ASSESSMENT AND PLAN: The patient is a 77-year-old female with past medical history of hypertension, gastroesophageal reflux disease, hyperlipidemia, and stage IV papillary carcinoma presenting with moira sea, vomiting, and abdominal pain. 1. Nausea, vomiting/abdominal pain. The patient is presenting 2 weeks post-chemotherapy with increa sed nausea, vomiting, and abdominal pain located in the periumbilical region. Recent CT scan shows p rogression of her uterine cancer as well as multiple small bowel loops with mural thickening concerni ng for possible ileitis; however, also seen on the CT scan was a decrease in the angle/fat pad betwee n the superior mesenteric artery and the aorta which could contribute to compression of the duodenum and superior mesenteric artery syndrome. At this point, the origin of her nausea, vomiting, and abdo diann pain is multifold and could be a combination of any of the following: Adverse reaction to rece nt chemotherapy regimen as they can produce stomatitis and mucositis as well as GI inflammation, prog ression of her uterine cancer to affect the small bowel causing essentially a functional ileus with i nflammation within the small bowel, mild constipation causing backup of fluid within the small intest ine (much less likely) and lastly with her deconditioned state and decrease of the fat pad between th e superior mesenteric artery and the aorta, superior mesenteric artery syndrome is definitely within the differential. RECOMMENDATIONS: 1. Would discontinue the docusate and substitute for MiraLax 1 capsule daily for treatment of outpat ient constipation that might be contributing to her abdominal pain. 2. Agree with antibiotic administration given inflammation of the small bowel and recent administrat ion of chemotherapy with mucositis within the differential. 3. Agree with fluid resuscitation. 4. Would optimize nutritional status given the possibility of superior mesenteric artery syndrome. 5. Pain control per primary team. 6. Further management of the worsening uterine cancer per oncology service. We will continue to follow. Please call with any questions.
[2017-08-10] MEDS: Atorvastatin Calcium 10 MG TAB PO SCH (20:11)
[2017-08-11] MEDS: MEROPENEM 1 GM/50 ML 1 GM in Premix Bag 1 BAG IVPB SCH ×4 (01:29→23:43)
[2017-08-11] MEDS: Famotidine 20 MG TAB PO SCH ×2 (09:10→20:56)
[2017-08-11] MEDS: Enoxaparin Sodium 40 MG/0.4 ML SYRINGE SC SCH (09:10)
[2017-08-11] MEDS: Polyethylene Glycol 3350 17 GM Packet PO SCH (09:11)
--- NOTE | 2017-08-11 11:02 | PDOC.PN ---
- Subjective Encounter Start Date: 08/11/17 Encounter Start Time: 10:45 Subjective: no nausea or abd pain -: no diarrhea, feels better -: tolerating full liq diet - Objective Resuscitation Status: Resuscitation Status FULL:Full Resuscitation MAR Reviewed: Yes Vital Signs & Weight: Vital Signs (12 hours) Temp Pulse Resp BP 08/11/17 08:00 98.0 F 91 12 153/81 H Weight Weight 187 lb I&O: 08/10/17 08/11/17 08/12/17 06:59 06:59 06:59 Intake Total 1077 1510 Output Total 500 800 Balance 577 710 Result Diagrams: 08/10/17 05:24 08/10/17 05:24 Phys Exam - Physical Examination HEENT: PERRLA, moist MMs Neck: no JVD, supple Respiratory: no wheezing, no rales Cardiovascular: RRR, no significant murmur Gastrointestinal: soft, non-tender, positive bowel sounds Musculoskeletal: pulses present, edema present Neurological: non-focal, moves all 4 limbs Dx/Plan (1) Ileitis Code(s): K52.9 - NONINFECTIVE GASTROENTERITIS AND COLITIS, UNSPECIFIED Status : Acute (2) 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 - MALIGNANT NEOPLASM OF ABDOMEN Status: Chronic (3) Anemia of chronic disease Code(s): D63.8 - ANEMIA IN OTHER CHRONIC DISEASES CLASSIFIED ELSEWHERE Status : Chronic (4) Ascites Code(s): R18.8 - OTHER ASCITES Status: Chronic Qualifiers: Ascites type: malignant (5) Dyslipidemia Code(s): E78.5 - HYPERLIPIDEMIA, UNSPECIFIED Status: Chronic (6) H/O malignant neoplasm of uterine body Code(s): Z85.42 - PERSONAL HISTORY OF MALIGNANT NEOPLASM OF OTH PRT UTERUS Status: Chronic Comment: on chemotherapy (7) HTN (hypertension) Code(s): I10 - ESSENTIAL (PRIMARY) HYPERTENSION Status: Chronic Qualifiers: Hypertension type: essential hypertension (8) Malnutrition of moderate degree Code(s): E44.0 - MODERATE PROTEIN-CALORIE MALNUTRITION Status: Chronic (9) Nausea & vomiting Code(s): R11.2 - NAUSEA WITH VOMITING, UNSPECIFIED Status: Resolved Qualifiers: Vomiting type: unspecified - Plan dc iv fluids -: is on meropenem -: will switch to oral cipro/flagyl in am -: regular solid diet today -: dc plan in am, has f/u with her onc in [place] on * . Review of Systems - Medications/Allergies Allergies/Adverse Reactions: Allergies Allergy/AdvReac Type Severity Reaction Status Date / Time No Known Drug Allergies Allergy Verified 08/09/17 16:23 Medications: Current Medications Acetaminophen (Tylenol) 650 mg PO Q4H PRN PRN Reason: Headache/Fever or Pain Hydrocodone Bitart/Acetaminophen ([place] 5/325) 1 tab PO Q4HR PRN PRN Reason: Pain Atorvastatin Calcium (Lipitor) 10 mg PO HS [facility] Last Admin: 08/10/17 20:11 Dose: 10 mg Enoxaparin Sodium (Lovenox) 40 mg SC 0900 [facility] Last Admin: 08/11/17 09:10 Dose: 40 mg Famotidine (Pepcid) 20 mg PO BID [facility] Last Admin: 08/11/17 09:10 Dose: 20 mg Guaifenesin/Dextromethorphan (Robitussin Dm) 15 ml PO Q4H PRN PRN Reason: Cough Meropenem 1 gm/ Device 50 mls @ 100 mls/hr IVPB 0800,1600,2359 [facility] Last Admin: 08/11/17 08:15 Dose: 50 mls Sodium Chloride (Normal Saline 0.9%) 1,000 mls @ 50 mls/hr IV .Q20H [facility] Last Admin: 08/10/17 14:45 Dose: 1,000 mls Metoprolol Succinate (Toprol Xl) 100 mg PO DAILY [facility] Last Admin: 08/11/17 09:11 Dose: 100 mg Ondansetron HCl (Zofran) 4 mg IVP Q6H PRN PRN Reason: Nausea/Vomiting Polyethylene Glycol (Miralax) 17 gm PO DAILY [facility] Last Admin: 08/11/17 09:11 Dose: 17 gm
[2017-08-11] MEDS: Sodium Chloride 0.9% 1,000 ML IV SCH (13:28)
--- NOTE | 2017-08-11 14:34 | RAD ---
AP PELVIS: Date: 08-11-17 Provided Clinical History: Fall. FINDINGS: No evidence for fracture or other acute osseous abnormality. If there is persistent clinical concern, conservative management and follow up imaging are advised. IMPRESSION: As above. POS: MARIELY
[2017-08-11] MEDS ORDERED: Sterile Water 10 ML VIAL FS SCH (15:30)
[2017-08-11] MEDS ORDERED: Ziprasidone 20 MG VIAL IM SCH (15:30)
[2017-08-11] MEDS: Atorvastatin Calcium 10 MG TAB PO SCH (20:56)
--- NOTE | 2017-08-11 21:31 | CT ---
CT BRAIN WITHOUT CONTRAST: History: Fall. Confusion. Altered mental status. Endometrial cancer. FINDINGS: There are changes of cortical atrophy and chronic small vessel ischemic disease. No evidence of infar ct, hemorrhage, midline shift, or abnormal extraaxial fluid collections are seen. Bony calvarium is i ntact. The visualized paranasal sinuses and mastoid air cells are well aerated. Absence of IV contrast reduces the sensitivity of exam to evaluate for metastatic disease, which elizabeth ot be ruled on this exam. IMPRESSION: No CT evidence of acute intracranial process. POS: MARIELY
--- NOTE | 2017-08-11 23:46 | PRG ---
DATE OF SERVICE: 08/11/2017 REASON FOR CONSULTATION: Enteritis. SUBJECTIVE: The patient did well overnight with no acute events or problems. This morning, she stat es that her nausea, her vomiting, and abdominal pain have all improved with her current regimen. How ever later this afternoon, she experienced acute worsening of her mental status with stated hallucina tions and was combative in nature to both family members and nursing staff. Upon questioning during my evaluation, she was alert and oriented x2, which was a change compared to her evaluation yesterday . Currently, denies any nausea, vomiting, fevers, chills, shortness of breath, or abdominal pain. OBJECTIVE: VITAL SIGNS: Her temperature 97.7, pulse 83, blood pressure 159/68, respiratory rate 18, satting 98% on room air. GENERAL: The patient is lying in bed, attempting to get out and was combative with nursing staff as they try to assist her back to bed. Alert and oriented x2. CARDIOVASCULAR: Regular rate and rhythm. RESPIRATORY: Clear to auscultation bilaterally. ABDOMEN: Normoactive bowel sounds, soft. Mild abdominal distention. Tenderness to palpation in the periumbilical and suprapubic regions. EXTREMITIES: 1+/2+ bilateral lower extremity edema extending to about mid mendes. LABORATORY DATA: No current studies available for review. IMAGING DATA: No current GI imaging available for review. ASSESSMENT AND PLAN: The patient is a 77-year-old female with past medical history of hypertension, GERD, hyperlipidemia, and stage IV papillary carcinoma, presenting with nausea, vomiting, and abdomin al pain. 1. 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 At this point per the current regimen we have her on, she has had near complete resolution of her nausea and vomiting with continued abdominal pain centered primar niko over her sites of cancer involvement. At this point, nausea and vomiting are more likely due to either inflammation/mucositis from chemotherapy regimens recently administered, extension of her meta static disease, or less likely superior mesenteric artery syndrome based on current imaging. Recomme ndations: 1. We would continue with MiraLax for constipation that might be contributing to her abdominal pain. 2. Agree with antibiotic administration given the inflammation of small bowel and recent administrat ion of chemotherapy with mucositis within the differential. 3. We would continue to optimize fluid and nutritional status. 4. Pain control per primary team. 5. Further management of uterine cancer per oncology service. 2. Altered mental status: The patient exhibited acute change in her mental status earlier today wit h loss of sensorium and hallucinations. At this point, it seems most consistent with delirium, most likely due to worsening of her clinical status as well as unfamiliar surroundings. She was given an atypical antipsychotic earlier today for treatment of this particular condition. Recommendations: W e will defer to primary team for evaluation of probable delirium. We will continue to follow. Please call with any questions.
[2017-08-12 07:50] VITALS: BP 154/69; TEMP 97.4
[2017-08-12 08:10] LABS: #Eosinphils 0.1 thou/uL (0.0-0.7); #Lymphocytes 0.7 thou/uL (1.20-3.40); #Monocytes 0.1 thou/uL (0.11-0.59); #Neutrophils 4.3 thou/uL (1.40-6.50); %Basophils 0.2 % (0.0-1.0); %Eosinophils 2.4 % (0.0-10.0); %Lymphocytes 13.9 % (21.0-51.0); %Monocytes 1.6 % (0.0-10.0); %Neutrophils 81.9 % (42.0-75.0); Hemoglobin 8.5 g/dL (12.0-16.0); Mean Corpuscular HGB CONC 31.7 g/dL (32.0-36.0); Mean Corpuscular Hemoglobin 26.7 pg (27.0-31.0); Mean Corpuscular Volume 84.3 fl (81.0-99.0); Mean Platelet Volume 7.5 fL (7.4-10.4); Platelet Count 207 thou/uL (130-400); RBC Distribution Width 18.9 % (11.5-14.5); Red Blood Cell (RBC) Count 3.19 mill/uL (4.20-5.40); White Blood Cell (WBC) Count 5.3 thou/uL (4.8-10.8)
[2017-08-12 08:28] LABS: Anion Gap 7 mmol/L (10-20); BUN (Urea Nitrogen) 8 mg/dL (9.8-20.1); Calc. Creatinine Clearance 83 mL/min (70-130); Calcium 8.4 mg/dL (7.8-10.44); Carbon Dioxide 31 mmol/L (23-31); Chloride 104 mmol/L (98-107); Estimated GFR-MDRD Greater than 90; Glucose 80 mg/dL (83-110); Potassium 3.9 mmol/L (3.5-5.1); Sodium 138 mmol/L (136-145)
[2017-08-12] MEDS ORDERED: Hydrochlorothiazide 25 MG TAB PO SCH (09:00)
[2017-08-12] MEDS: Enoxaparin Sodium 40 MG/0.4 ML SYRINGE SC SCH (09:33)
[2017-08-12] MEDS: Polyethylene Glycol 3350 17 GM Packet PO SCH (09:33)
[2017-08-12] MEDS: Famotidine 20 MG TAB PO SCH (09:33)
[2017-08-12] MEDS: MEROPENEM 1 GM/50 ML 1 GM in Premix Bag 1 BAG IVPB SCH (11:19)
--- NOTE | 2017-08-13 09:56 | PDOC.PN ---
- Subjective Encounter Start Date: 08/12/17 Encounter Start Time: 10:00 Subjective: no nausea or vomiting -: follows verbal stimuli, is eating fairly - Objective Resuscitation Status: Resuscitation Status FULL:Full Resuscitation MAR Reviewed: Yes Vital Signs & Weight: Weight Weight 187 lb I&O: 08/12/17 08/13/17 08/14/17 06:59 06:59 06:59 Intake Total 1090 240 Output Total 200 Balance 890 240 Result Diagrams: 08/12/17 07:59 08/12/17 07:59 Phys Exam - Physical Examination HEENT: PERRLA, moist MMs Neck: no JVD, supple Respiratory: no wheezing, no rales Cardiovascular: RRR, no significant murmur Gastrointestinal: soft, positive bowel sounds no guarding or rigidity Musculoskeletal: no edema, pulses present Neurological: non-focal, moves all 4 limbs Dx/Plan (1) Ileitis Code(s): K52.9 - NONINFECTIVE GASTROENTERITIS AND COLITIS, UNSPECIFIED Status : Acute Comment: resolving (2) 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 - MALIGNANT NEOPLASM OF ABDOMEN Status: Chronic (3) Anemia of chronic disease Code(s): D63.8 - ANEMIA IN OTHER CHRONIC DISEASES CLASSIFIED ELSEWHERE Status : Chronic (4) Ascites Code(s): R18.8 - OTHER ASCITES Status: Chronic Qualifiers: Ascites type: malignant (5) Dyslipidemia Code(s): E78.5 - HYPERLIPIDEMIA, UNSPECIFIED Status: Chronic (6) H/O malignant neoplasm of uterine body Code(s): Z85.42 - PERSONAL HISTORY OF MALIGNANT NEOPLASM OF OTH PRT UTERUS Status: Chronic Comment: on chemotherapy (7) HTN (hypertension) Code(s): I10 - ESSENTIAL (PRIMARY) HYPERTENSION Status: Chronic Qualifiers: Hypertension type: essential hypertension (8) Malnutrition of moderate degree Code(s): E44.0 - MODERATE PROTEIN-CALORIE MALNUTRITION Status: Chronic (9) Nausea & vomiting Code(s): R11.2 - NAUSEA WITH VOMITING, UNSPECIFIED Status: Resolved Qualifiers: Vomiting type: unspecified - Plan hemostable -: daughter and family have refused placement -: dc to home with HH -: to f/u with her onc in 1 week and pcp in 1week -: flag stefanyl. * .
--- NOTE | 2017-08-13 12:26 | DIS ---
DATE OF ADMISSION: 08/09/2017 DATE OF DISCHARGE: 08/12/2017 DISCHARGE DISPOSITION: To home. PRIMARY DISCHARGE DIAGNOSES: Ileitis, history of endometrial cancer stage IV, chronic anemia, malign ant ascites with periodic paracentesis, dyslipidemia, hypertension, moderate malnutrition, nausea or vomiting on admission, resolved. PROCEDURES DONE DURING HOSPITALIZATION: Patient has had CT of the abdomen and pelvis done which show ed findings suggestive of enteritis. She also had multiple findings related to her cancer. CT brain showed no evidence of acute intracranial process. Stool for Clostridium difficile, Campylobacter an d Shiga toxins were negative. Blood cultures x2, no growth. Urine culture was contaminated. Hemogl obin and hematocrit 8.5 and 26, platelet count 207, MCV is 84. Discharge BUN and creatinine is 8 and 0.7, albumin was 2.7. DISCHARGE MEDICATIONS: Ciprofloxacin 500 mg p.o. twice daily for 2 weeks, Flagyl 250 mg 3 times song y for a total of 21 tablets, vitamin D3 1000 units p.o. daily, hydrochlorothiazide 25 mg daily, Topro l-XL 100 mg daily, multivitamin 1 capsule daily, omeprazole 20 mg p.o. at bedtime, Zofran p.r.n., pot assium chloride 10 mEq p.o. daily, simvastatin 20 mg p.o. at bedtime. ALLERGIES: No known drug allergies. INPATIENT CONSULTS: Dr. Terry Ireland for Gastroenterology, Ms. Sharda Akhtar, nurse practitioner for Oncology. BRIEF COURSE DURING HOSPITALIZATION: The patient initially came to ER with complaints of nausea and vomiting. She had a CT of the abdomen and pelvis done which was suggestive of ileitis. She has know n history of stage IV endometrial cancer with carcinomatosis in the abdomen. She also has malignant ascites with periodic paracentesis done via her oncologist in [place], Dr. Whalen. The patient was pl aced on IV antibiotics and has had martinez cultures obtained. Stool studies have not revealed any acute bacterial pathology. She has had consultation with Dr. Beka Stewart for Gastroenterology as well. P rosarioient's nausea and vomiting completely resolved. She is tolerating oral solid diet. She had slight confusion on and tried to get out of her bed. Likely this is due to her advanced age with beth ntia. She has had a CT brain done which did not reveal any acute pathology. Pelvic x-ray done did n ot reveal any acute fractures for the safe fall that she had. Patient's prognosis is guarded. Famil y was given options of going to swing bed[facility]prison. They have declined and patient will be short ly discharged home with home health. She has a follow up with her oncologist in the coming week. Zeenat knox see a face to face documentation on [facility] for the day of discharge.
== END 2017-08-12 11:58 | disposition home health service (06) | DRG 392 ==
LOC: ERS 08:05 → ONC 10:28
PROVIDERS: ADMIT Internal Medicine; ATTEND Internal Medicine
DX: K52.9 Noninfective gastroenteritis and colitis, unspecified (principal); E44.0 Moderate protein-calorie malnutrition; C78.6 Secondary malignant neoplasm of retroperitoneum and peritoneum; C54.1 Malignant neoplasm of endometrium; E78.5 Hyperlipidemia, unspecified; D63.0 Anemia in neoplastic disease; K21.9 Gastro-esophageal reflux disease without esophagitis; Z68.30 Body mass index [BMI] 30.0-30.9, adult
CPT/HCPCS: 36415; 70450; 72170; 74177; 80048; 80053; 81003; 81015; 83690; 85025; 87040; 87045; 87046; 87081; 87086; 87449; 87899; 93005; 96360; A4216; G8978-GP-CM; G8979-GP-CK; J1650; J2185; J3486

== ENCOUNTER 2017-09-25 14:42 | Outpatient (CLI) | payer MEDICARE, OTHER | END 2017-09-25 14:43 | disposition home or self-care (01) | LOC: ULT 14:42 | PROVIDERS: ATTEND Obstetrics & Gynecology Gynecologic Oncology | DX: Z51.11 Encounter for antineoplastic chemotherapy (principal); Z45.2 Encounter for adjustment and management of vascular access device; C54.1 Malignant neoplasm of endometrium; C80.0 Disseminated malignant neoplasm, unspecified; R18.0 Malignant ascites; I08.1 Rheumatic disorders of both mitral and tricuspid valves | CPT/HCPCS: 93306 ==

== ENCOUNTER 2017-09-26 15:13 | Inpatient (IN) | payer MEDICARE, OTHER ==
[~2017-09-26 15:13] MED LIST changes: -FLU VACC TS2017-18 (>65YR) 0.5 ML SYRINGE IM ONE; +ISOVUE-370 76%-LOCM 1 ML ONE
--- NOTE | 2017-09-26 16:20 | RAD ---
CHEST 1 VIEW: Date: 09/26/17 HISTORY: Chest pain. Dyspnea. COMPARISON: 06/02/17. FINDINGS: Cardiac silhouette is magnified, enlarged, and partially obscured by dense bibasilar infiltrates and pleural fluid. Mediastinum midline with right subclavian Port-A-Cath. Pulmonary vasculature is marked ly engorged with bilateral perihilar infiltrates. No evidence of pneumothorax. IMPRESSION: CHF. POS: [facility]
[2017-09-26 16:24] LABS: #Eosinphils 0.1 thou/uL (0.0-0.7); #Lymphocytes 1.1 thou/uL (1.20-3.40); #Monocytes 0.8 thou/uL (0.11-0.59); #Neutrophils 4.9 thou/uL (1.40-6.50); %Basophils 0.2 % (0.0-1.0); %Eosinophils 1.9 % (0.0-10.0); %Lymphocytes 15.5 % (21.0-51.0); %Monocytes 11.6 % (0.0-10.0); %Neutrophils 70.9 % (42.0-75.0); Hemoglobin 10.4 g/dL (12.0-16.0); Mean Corpuscular Hemoglobin 26.9 pg (27.0-31.0); Mean Corpuscular Volume 86.7 fl (81.0-99.0); Mean Platelet Volume 8.3 fL (7.4-10.4); Platelet Count 281 thou/uL (130-400); RBC Distribution Width 20.3 % (11.5-14.5); Red Blood Cell (RBC) Count 3.86 mill/uL (4.20-5.40)
[2017-09-26 16:32] LABS: INR-International Normal Ratio 1.1; Prothrombin Time 14.1 SEC (12.0-14.7)
[2017-09-26 16:51] LABS: ALT (SGPT) Less than 7 U/L (8-55); AST (SGOT) 15 U/L (5-34); Albumin 2.9 g/dL (3.4-4.8); Alkaline Phosphatase 63 U/L (40-150); Anion Gap 12 mmol/L (10-20); BUN (Urea Nitrogen) 9 mg/dL (9.8-20.1); Bilirubin, Total 0.4 mg/dL (0.2-1.2); CK (CPK) 25 U/L (29-168); Calc. Creatinine Clearance 0 mL/min (70-130); Carbon Dioxide 25 mmol/L (23-31); Chloride 102 mmol/L (98-107); Estimated GFR-MDRD 85; Globulin 3.2 g/dL (2.4-3.5); Glucose 88 mg/dL (83-110); Magnesium 1.6 mg/dL (1.6-2.6); Potassium 3.9 mmol/L (3.5-5.1); Protein, Total 6.1 g/dL (6.0-8.3); Sodium 135 mmol/L (136-145)
[2017-09-26 16:58] LABS: CKMB 1.8 ng/mL (0-6.6); Troponin I Less than 0.010 ng/mL (< 0.028)
--- NOTE | 2017-09-26 17:05 | CT ---
CT HEAD NONCONTRAST: 09/26/17 HISTORY: Altered mental status. COMPARISON: 08/11/17. FINDINGS: There is no evidence of acute intracranial hemorrhage or infarct. Diffuse cortical atrophy and chroni c ischemic small vessel disease are similar in appearance to the prior exam. There is no mass effect or shift of midline structures. Visualized paranasal sinuses remain well aerated. IMPRESSION: No acute intracranial abnormalities are demonstrated on noncontrast CT head. Findings were called to Dr. Prado in the Emergency Department at 1639 hours. Code CR POS: [facility]
[2017-09-26] MEDS ORDERED: hydrALAZINE 20 MG/ML VIAL ONE (17:12)
--- NOTE | 2017-09-26 17:51 | CT ---
CTA OF THE NECK WITH CONTRAST CTA OF THE HEAD WITH CONTRAST 09/26/17 HISTORY: Frontal headache since this morning. Altered mental status. Stroke alert. TECHNIQUE: 1. Multiple contiguous axial images were obtained in a CTA of the neck with contrast. 3D sagitta l and coronal MIP reformats were performed. 2. Multiple contiguous axial images were obtained in a CTA of the head with contrast. 3D sagitta l and coronal MIP reformats were performed. FINDINGS: CTA NECK: Bilateral pleural effusions are seen. There are pulmonary emboli in the right main pulmonary artery. Diffuse soft tissue anasarca is seen. No mucosal abnormality is seen in the neck. No cervical adenopathy is seen. There is a densely calcif ied left thyroid nodule. Degenerative changes are seen in the spine. The common carotid arteries have a normal origin from the aortic arch. The subclavian arteries show n o significant atherosclerotic disease. The common carotid arteries bifurcate into normal appearing in ternal and external carotid arteries. No significant stenosis per NASCET criteria is seen of the inte rnal carotid arteries. Both vertebral arteries are normal in appearance without significant atherosclerotic disease. CTA HEAD: The bilateral intracranial internal carotid arteries are normal in caliber. Both anterior cerebral ar teries and middle cerebral arteries are patent. The anterior cerebral arteries are both supplied by t he left internal carotid artery. There is no evidence of aneurysmal dilatation, focal stenosis, or oc clusion in the anterior circulation. Prominent bilateral posterior communicating arteries are seen. Both vertebral arteries form a normal appearing basilar artery. The posterior cerebral arteries and c erebellar arteries are patent. There is no evidence of focal stenosis, occlusion, or aneurysmal dilat ation in the posterior circulation. IMPRESSION: 1. No evidence of significant arterial abnormality of the neck. 2. No significant intracranial arterial abnormality. 3. Pulmonary emboli noted. 4. Bilateral pleural effusions. Dr. Prado notified of the findings at 4:53 p.m. on 09/26/17. Code CR POS: [facility]
[2017-09-26 18:04] LABS: Bilirubin Negative (Negative); Blood, Urine Negative (Negative); Clarity CLEAR (Clear); Glucose, Urine (Dipstick) Negative (Negative); Leukocyte Negative (Negative); Nitrite Negative (Negative); Protein, Urine (Dipstick) Negative (Neg-Trace); Specific Gravity, Urine 1.027 (1.002-1.036); pH, Urine 7.5 (5.0-9.0)
[2017-09-26] MEDS ORDERED: Enoxaparin Sodium 80 MG/0.8 ML SYRINGE ONE (18:09)
--- NOTE | 2017-09-26 18:39 | CT ---
CT CHEST WITH IV CONTRAST CT ABDOMEN WITH IV CONTRAST CT PELVIS WITH IV CONTRAST 09/26/17 HISTORY: Headache, generalized weakness with history of endometrial cancer. COMPARISON: Comparison made with CT abdomen and pelvis dated 08/09/17. There is pulmonary embolism in the right lung. This was better seen on the CTA of the neck and brain obtained earlier today. There are moderate sized bilateral pleural effusions, left larger than right with adjacent atelectatic changes. Patchy round glass densities are seen in the visualized upper lung donohue. The small low density lesion in the liver is stable. No calcified gallstones are seen. The r ight adrenal nodule noted on the previous study is suboptimally visualized due to artifact from the a djacent upper extremities. The spleen, pancreas, left adrenal gland and kidneys are otherwise normal. No free air is seen. Free intraperitoneal fluid is again noted. There are prominent lymph nodes in t he pelvis and inguinal regions measuring less than 1cm in short axis diameter. The complex mass in th e uterine fundus is larger measuring 13 x 10 x 11 cm. The small bowel loops are not abnormally dilated. There is fecal material in the colon and rectum. A normal appearing appendix is seen. Fat containing bilateral inguinal hernia. There are vascular calci fications without aneurysmal dilatation of the abdominal aorta. There are degenerative changes in the spine. There is DVT in the common femoral veins on either side. IMPRESSION: 1. Venous throboembolic disease (VTED). 2. Moderate bilateral pleural effusions, left larger than right with patchy infiltrates in the l ungs. 3. Mild ascites and moderate anasarca. 4. Interval increase in size of the uterine mass since 08/09/17. 5. Stable right adrenal nodule. Report was called over the telephone to ER physician, Dr. Mars Prado at 5:10 p.m. Code CR POS: [facility]
[2017-09-26] MEDS: Sodium Chloride 0.9% 1,000 ML IV SCH (20:09)
[2017-09-26] MEDS: Ampicillin 2 GM in Sodium Chloride 0.9% 100 ML IVPB SCH (21:26)
[2017-09-26] MEDS: cefTRIAXone\\ROCEPHIN 2 GM in Sodium Chloride 0.9% 100 ML IVPB SCH (21:35)
[2017-09-26] MEDS: Simvastatin 20 MG TAB PO SCH (21:35)
[2017-09-26] MEDS: Dexamethasone 4 mg/ml Vial SLOW IVP SCH (21:35)
[2017-09-26] MEDS: Famotidine/PF 20 mg/2ml Vial SLOW IVP SCH (23:22)
[2017-09-27] MEDS: Dexamethasone 4 mg/ml Vial SLOW IVP SCH ×2 (02:06→08:32)
[2017-09-27] MEDS: Ampicillin 2 GM in Sodium Chloride 0.9% 100 ML IVPB SCH ×2 (02:07→08:35)
--- NOTE | 2017-09-27 02:41 | HP ---
CHIEF COMPLAINT: Altered mental status. HISTORY OF PRESENT ILLNESS: The patient is a 77-year-old female with a history of endometrial cancer stage IV, status post multiple paracenteses in the past, who presents to the hospital with altered m ental status. The patient currently gets her chemotherapy treatments from her oncologist in [place], she is on Avastin and also takes doxorubicin, I am not sure about that one. The patient's daughter s tated that today she was supposed to drive to [place] to get her treatment; however, when she woke up this morning she just did not feel well. She had complained of some abdominal pain and had a headach e on the right side and her blood pressure seemed to be very elevated. The patient's daughter at dinorah t time gave her Ranger for pain; however, her symptoms did not improve. The patient's daughter called her oncologist who then recommended her to come into the ER for further evaluation. The patient's d aughter stated that the patient has not had any fevers or chills. She was doing well yesterday. Den ied any complaint of chest pressure, diarrhea, nausea, vomiting. According to the patient's daughter , she has been having some shortness of breath; however, the patient uses a walker and her mobility t o begin with is very limited. The patient did have an echocardiogram that was done yesterday which i ndicated EF of 45%-50%, EF versus strain 49%-51%. She also had some mild elevated pulmonary artery p ressure. The patient currently is awake, alert; however, has a gaze to her right side. According to patient's daughter, this is not like her mother. PAST MEDICAL HISTORY: History of endometrial cancer stage IV with multiple paracentesis. There is p er oncology's note indicates that patient has indicated malignant ascites and malignant pleural effus ions. The patient is currently on chemotherapy and has a history of hypertension and GERD and dyslip idemia. PAST SURGICAL HISTORY: She has a MediPort. FAMILY HISTORY: Mother at the age of 89. She had some coronary artery disease. Father lived u p to 99 and of old age. PERSONAL HISTORY: Denies any alcohol, drug use or smoking history. She lives with her daughter who is also her power of civil rights attorney. ALLERGIES: She has no known drug allergies. REVIEW OF SYSTEMS: All negative except for the ones mentioned above in the HPI. MEDICATIONS: Are as following: She is on Avastin, which she gets chemotherapy, simvastatin 20 mg at bedtime, vitamin D 1000 units daily, Toprol-XL 100 mg daily, multivitamin 1 daily, omeprazole 20 mg daily, naproxen p.r.n., Ranger p.r.n., and hydrochlorothiazide 25 mg daily. PHYSICAL EXAMINATION: VITAL SIGNS: Her temperature of 98.6, respirations 18, heart rate is 83, blood pressure 180/83, 100% on room air. GENERAL: She is awake and alert. She is oriented x3. CARDIOVASCULAR: S1, S2 present. No murmurs, rubs or gallops. LUNGS: She has got decreased breath sounds bilaterally to bases. No rhonchi or wheezes noted. HEENT: She appears a little bit dehydrated. No oral thrush noted in her mouth. ABDOMEN: Soft, nontender. Bowel sounds are present x2. NEUROLOGIC: She is awake. She does have a gaze to her right side. She is unable to look to her lef t side. She is unable to follow certain commands. When I tell her to track my finger with her eyes she is unable to do so. The patient has some weakness to the left upper extremity and left lower ext remity; however, the daughter states that the left lower extremity, she has had a chronic weakness. Sensory: She has got sensory deficits, which per daughter is due to long-term chemotherapy and chemo therapy side effects. SKIN: No open cuts or bruises noted. LABORATORY DATA: Are as the following, she has got WBCs of 7.0, hemoglobin of 10.4, hematocrit of 33 .5, platelets are 281. She has got no bands. Her coagulation: INR of 1.1. Sodium of 135, potassiu m of 3.9, chloride of 102, BUN of 9, creatinine of 0.79. Her calcium is 9, magnesium is 1.6. Her T and ALT are normal. Her troponin x1 is negative. Her BNP is 431. She did have CT chest, abdomen and pelvis, which indicated a new lower extremity DVT and also the right lung pulmonary emboli. Bila teral pleural effusions, left greater than right. She has an interval increase in the size of the ut erine mass since 08/09/2017. She also had a CT brain which did not indicate any acute processes. ASSESSMENT AND PLAN: The patient is a 77-year-old female who presents to the hospital for altered me ntal status. 1. Altered mental status could be possibly secondary to metabolic versus infectious versus worsening of her malignancy. Nothing on her labs indicate that could point towards certain indication of her acute altered mental status. The patient does not have leukocytosis. She has got no bandemia. Urin e looked pretty significantly okay. Her urine was completely normal. Chest x-ray, she does have a l eft significant pleural effusion; however, the patient's daughter has not seen any cough or any fever s or chills. We will check a thyroid. She does have, however, a new deep venous thrombosis and pulm onary embolism which possibly could cause her change in mentation; however, would not explain her lat eralization to her right side. CT head was negative. I did call Oncology to see if possibly there i s a chance that endometrial cancer could cause any sort of meningeal spread which could possibly expl ain the patient's symptoms; however, he stated that leptomeningeal is very rare and unlikely in this case. He recommended an MRI brain with contrast which I will perform; however, in the meantime, I ma y start her on some Decadron to see if maybe if she has a new lesion that could be causing her to hav e this lateralize gaze. Also, she does not have any nuchal rigidity. She does not have a fever. Sh e does not have any leukocytosis. Meningitis was also unlikely; however, we will just treat her empi rically for now. I do not have a good explanation why she is having such significant lateral gaze. Also, Neurology has been consulted. We will admit the patient in the IMCU and go from there. 2. New acute deep venous thrombosis, pulmonary embolism. The patient will be started on Lovenox 1 m g/kg twice a day. We will go from there. She did have echo which indicated ejection fraction of 45% -50%. Troponins are negative. She does have elevated pulmonary artery pressure. 3. Endometrial cancer with metastasis and with malignant ascites and pleural effusion. She is curre ntly still getting treatments in [place] with Avastin and I believe it is doxorubicin that is how the patient's daughter mentioned. Did discuss significantly in details of code status, the patient to me stated that she wanted to be resuscitated. I have read notes in the past that the patient did not w ant the hospice approach. The patient's daughter who is her decision maker in case if something happ ens to the patient, I did speak with her in lengthwise about patient's overall poor prognosis and if there was a chance that she had to be resuscitated, her overall outcome would be very grim. The kulwinder ent's daughter understood will get palliative consult; however, at this time she wants everything to be done for the patient. The patient clinically appears to be very critically ill. This was mention ed and explained in detail to patient's daughter.
[2017-09-27 04:22] LABS: #Monocytes 0.1 thou/uL (0.11-0.59); #Neutrophils 6.7 thou/uL (1.40-6.50); %Basophils 0.3 % (0.0-1.0); %Eosinophils 0.3 % (0.0-10.0); %Monocytes 1.8 % (0.0-10.0); %Neutrophils 84.6 % (42.0-75.0); Hemoglobin 10.6 g/dL (12.0-16.0); Mean Corpuscular HGB CONC 31.5 g/dL (32.0-36.0); Mean Corpuscular Hemoglobin 26.8 pg (27.0-31.0); Mean Corpuscular Volume 85.2 fl (81.0-99.0); Mean Platelet Volume 8.4 fL (7.4-10.4); Platelet Count 304 thou/uL (130-400); RBC Distribution Width 20.4 % (11.5-14.5); Red Blood Cell (RBC) Count 3.95 mill/uL (4.20-5.40); White Blood Cell (WBC) Count 7.9 thou/uL (4.8-10.8)
[2017-09-27 04:41] LABS: ALT (SGPT) Less than 7 U/L (8-55); AST (SGOT) 13 U/L (5-34); Albumin 3.1 g/dL (3.4-4.8); Alkaline Phosphatase 64 U/L (40-150); Anion Gap 14 mmol/L (10-20); BUN (Urea Nitrogen) 8 mg/dL (9.8-20.1); Bilirubin, Total 0.3 mg/dL (0.2-1.2); Calc. Creatinine Clearance 75 mL/min (70-130); Calcium 9.2 mg/dL (7.8-10.44); Carbon Dioxide 24 mmol/L (23-31); Chloride 102 mmol/L (98-107); Estimated GFR-MDRD 87; Globulin 3.2 g/dL (2.4-3.5); Glucose 89 mg/dL (83-110); Protein, Total 6.3 g/dL (6.0-8.3); Sodium 136 mmol/L (136-145)
[2017-09-27] MEDS: Sodium Chloride 0.9% 1,000 ML IV SCH (08:34)
[2017-09-27] MEDS: Enoxaparin Sodium 80 MG/0.8 ML SYRINGE SC SCH ×2 (08:36→21:23)
[2017-09-27] MEDS: Famotidine/PF 20 mg/2ml Vial SLOW IVP SCH ×2 (08:36→21:24)
--- NOTE | 2017-09-27 08:57 | CON ---
DATE OF CONSULTATION: 09/27/2017 CONSULTING PHYSICIAN: Dr. Villalobos from the Hospitalist group. REASON FOR CONSULTATION: Pulmonary embolism and pleural effusion. The total time of consultation, 70 minutes, of the time, greater than 50% of the time was spent with the patient and/or on the patient's unit in the hospital. HISTORY OF PRESENT ILLNESS: This is a 77-year-old female who was brought to the hospital last night with altered mental status. Apparently symptoms started yesterday morning. She is currently being t reated for endometrial cancer by a specialist over in [place]. The patient's daughter called the onco logist yesterday when the patient developed altered mental status. She was told to bring the patient to the hospital. The patient was very nonspecific as far as symptoms. Workup demonstrated a fairly substantial right main pulmonary artery embolism. She has improved overnight from a mental status s [facility] and was able to give me some history. She says she is not short of breath currently. She does feel somewhat weak. PAST MEDICAL HISTORY: 1. Stage IV endometrial cancer treated with chemotherapy. She has approximately 13 cm mass in the a bdomen. 2. Malignant ascites requiring multiple paracentesis. 3. Malignant pleural effusions. PAST SURGICAL HISTORY: MediPort placement. FAMILY MEDICAL HISTORY: Remarkable for ovarian cancer. SOCIAL HISTORY: Nonsmoker, does not consume alcohol. ALLERGIES: None. REVIEW OF SYSTEMS: Essentially negative except for those mentioned above. MEDICATIONS PRIOR TO ADMISSION: Avastin, simvastatin, vitamin D, Toprol-XL, multivitamin, omeprazole , naproxen, [place], hydrochlorothiazide. PHYSICAL EXAMINATION: VITAL SIGNS: Temperature 97.7, pulse 56, respirations 17, O2 sat 98% on room air, blood pressure 133 /79. GENERAL: The patient is awake, pleasant. She speaks slowly, but she is understandable. HEENT: Pupils react. Sclerae icteric. Oropharynx clear. NECK: No JVD. LUNGS: She has diminished breath sounds both bases. No wheezing, no rhonchi. CARDIAC: S1, S2, slightly bradycardic. No murmur. ABDOMEN: Large palpable mass just below the umbilicus that is probably double the size of my fist. She has some mild ascites. EXTREMITIES: Her left leg is swollen compared to right. LABORATORY DATA: Sodium 136, potassium 4, chloride 102, CO2 24, BUN 8, creatinine 0.7, glucose 89, a lbumin 3.1. White blood cell count 7.9, hematocrit 33.7, platelet count 304. INR 1.1. Urinalysis w as negative. ASSESSMENT: 1. Pulmonary embolism - probably new. 2. Suspected left lower extremity deep venous thrombosis. 3. Metastatic uterine cancer. 4. Bilateral pleural effusions which the patient is largely asymptomatic from at this point. RECOMMENDATIONS: 1. I agree with the Lovenox for the DVT. I would convert her over to warfarin as soon as it is prac tical. She needs to have a goal INR 2-2.5. 2. I would defer on treating the pleural effusions unless the patient becomes symptomatic from her b reathing. 3. I would consult palliative care as this case seems as if we are dealing with complications of end -stage cancer.
[2017-09-27] MEDS ORDERED: Prevnar 13-Val Conj/PF 0.5 ML SYRINGE IM ONE (09:00)
[2017-09-27] MEDS ORDERED: Vancomycin HCl 1.5 GM in Sodium Chloride 0.9% 250 ML 300 ML IVPB SCH (09:00)
[2017-09-27] MEDS ORDERED: Enoxaparin Sodium 80 MG/0.8 ML SYRINGE SC SCH (09:00)
--- NOTE | 2017-09-27 13:05 | MRI ---
MRI BRAIN WITH AND WITHOUT IV CONTRAST: HISTORY: Altered mental status, headache, endometrial cancer. FINDINGS: Correlation is made with the CT brain on the previous day. Multiple foci of T2 prolongation in the periventricular white matter consistent with chronic small-ve ssel ischemic disease. The ventricular size is appropriate and the basilar cisterns patent. No rest ricted diffusion is seen. No evidence of infarct, hemorrhage, mass, midline shift, or abnormal extra axial fluid collections are seen. No abnormal postcontrast enhancement is identified. The visualize d paranasal sinuses are well aerated. A small amount of free fluid is seen in the mastoid air cells. An empty sella is present. IMPRESSION: No evidence of acute intracranial process, mass, or metastatic disease. POS: [facility]
--- NOTE | 2017-09-27 13:43 | CON ---
DATE OF CONSULTATION: 09/27/2017 CHIEF COMPLAINT: Altered mental status. HISTORY OF PRESENT ILLNESS: The patient is a 77-year-old lady who has a history of endometrial cance r stage IV and she presented to the hospital with altered mental status. Per her daughters, all her symptoms began yesterday morning and she got increasingly worse and was brought to the hospital and s he has been receiving chemotherapy in often. She is on Avastin and doxorubicin. Patient has had sanchez e abdominal pain and changes in her blood pressure at home. No seizures were noted. No hallucinatio ns were noted by the daughter. The patient usually is walking with a walker and at this time, luis cope is intermittently confused and does follow some commands and was noted to have gaze deviation by st [facility] in the hospital. PREVIOUS MEDICAL HISTORY: Significant for stage IV endometrial cancers on chemotherapy with 13 cm ma ss in the abdomen, malignant ascites, malignant pleural effusions and patient also has prior history of gastroesophageal reflux disease and dyslipidemia. PAST SURGICAL HISTORY: MediPort was placed recently. FAMILY HISTORY: Her mother passed at age 89 and coronary artery disease. Father lived till 99. Monika vail is healthy. SOCIAL HISTORY: She lives with her daughter. No alcohol or smoking. ALLERGIES: No known drug allergies. REVIEW OF SYSTEMS: Difficult to obtain from the patient. PULMONARY: Positive for shortness of monica th. CARDIAC: Negative. ENT: Normal. GASTROINTESTINAL: Normal. ENDOCRINE: Normal. HEMATOLOGIC AL: Normal. GENITOURINARY: Positive for endometrial cancer. GASTROINTESTINAL: Positive for ascit es and gastroesophageal reflux disease. CURRENT MEDICATIONS: She is on Avastin, simvastatin, vitamin D and Toprol for hypertension, [place], h ydrochlorothiazide and omeprazole. LABORATORY DATA AND IMAGING DATA: Her laboratory reports today, white count 7.9, hemoglobin 10.6, he matocrit 33.7, platelet count 304. Chemistry: Sodium 136, potassium 4.0, chloride 102, bicarbonate 24, BUN 8, creatinine 0.77, glucose 89, AST 13, ALT less than 7, alkaline phosphatase 64, ammonia 26. CK 25, CK-MB 1.8. BNP 431.3. Urinalysis negative for any abnormalities and her MRI scan of the br ain was normal and there was no evidence of any intracranial process. There was also a CT angiograph y that was performed on which showed no atherosclerotic disease intracranially and also in the n ze. PHYSICAL EXAMINATION: VITAL SIGNS: Blood pressure is 173/84, pulse 61, temperature 97.2, and oxygen saturation 94% by room air. GENERAL APPEARANCE: Well-built, well-nourished, very pleasant lady who seems to intermittently not f ocus and tends to either hold onto her blanket or look to the right and sometimes she is conversant a nd at this time she seems to speak to be more confused even during within a conversation. CHEST: Clear vesicular breathing. CARDIOVASCULAR: S1, S2 heard, no murmurs. ABDOMEN: Soft, no organomegaly noted. NEUROLOGICAL: On examination, higher intellectual functions. She thinks she is in the hospital. Sh e is not oriented to time and she is oriented to person and there is intermittent distractibility and right gaze deviation or she holds the blanket or place with her fingers. Cranial nerves normal, but she can follow commands. Cranial nerves: Normal extraocular movements. Sensation of face is chelsea l. No facial asymmetry noted. Hearing is normal. Tongue midline, no atrophy noted. Normal elevati on of palate. Motor examination: Bulk normal, tone normal, strength is 5/5 in upper and lower extre mities. Deep tendon reflexes are 2+. Muscle groups tested are iliopsoas, hamstrings, quadriceps, an kle dorsiflexion, plantar flexion, deltoid, biceps, triceps, and wrist extension and flexion bilatera lly. Deep tendon reflexes were 2+. Sensory examination is normal to touch, pinprick, proprioception was difficult to assess. Normal vibration bilaterally. CEREBELLAR: Normal [id number] and heel to mendes. IMPRESSION: The patient is a 77-year-old lady with endometrial cancer. She is on chemotherapy. At this time, she seems to have some degree of altered mental status and not being normal at her baselin e. She has a normal MRI scan of the brain. Her examination is normal with normal strength and cereb ellar function. However, there is altered mental status with intermittent participation and interact ion with people in her surroundings and at times she seems to be drifting and she talks about a story or reading and I cannot rule out possibility of subclinical seizures in this situation. I discussed this with her daughter and suggested EEG and Keppra. RECOMMENDATIONS: Keppra 500 b.i.d. and an EEG stat and I will follow up patient with you and please monitor for any further neurological changes.
[2017-09-27] MEDS: Warfarin Sodium 3 MG TAB PO SCH (17:15)
[2017-09-27] MEDS: Simvastatin 20 MG TAB PO SCH (21:23)
[2017-09-27] MEDS: cefTRIAXone\\ROCEPHIN 2 GM in Sodium Chloride 0.9% 100 ML IVPB SCH (21:24)
[2017-09-28] MEDS: Sodium Chloride 0.9% 1,000 ML IV SCH ×3 (02:04→22:32)
[2017-09-28 05:03] LABS: INR-International Normal Ratio 1.1; Prothrombin Time 14.3 SEC (12.0-14.7)
[2017-09-28 05:14] LABS: ALT (SGPT) Less than 7 U/L (8-55); AST (SGOT) 12 U/L (5-34); Albumin 2.8 g/dL (3.4-4.8); Alkaline Phosphatase 56 U/L (40-150); Anion Gap 15 mmol/L (10-20); BUN (Urea Nitrogen) 11 mg/dL (9.8-20.1); Bilirubin, Total 0.2 mg/dL (0.2-1.2); Calc. Creatinine Clearance 76 mL/min (70-130); Calcium 8.8 mg/dL (7.8-10.44); Carbon Dioxide 21 mmol/L (23-31); Chloride 105 mmol/L (98-107); Estimated GFR-MDRD 89; Globulin 2.9 g/dL (2.4-3.5); Glucose 113 mg/dL (83-110); Potassium 3.6 mmol/L (3.5-5.1); Protein, Total 5.7 g/dL (6.0-8.3); Sodium 137 mmol/L (136-145)
[2017-09-28] MEDS: Enoxaparin Sodium 80 MG/0.8 ML SYRINGE SC SCH ×2 (10:15→21:43)
[2017-09-28] MEDS: Famotidine/PF 20 mg/2ml Vial SLOW IVP SCH ×2 (10:15→22:32)
--- NOTE | 2017-09-28 12:26 | PRG ---
DATE OF SERVICE: 09/28/2017 SUBJECTIVE: The patient states she feels fine. Her sister tells me that the patient is experiencing episodes of confusion particularly at night. OBJECTIVE: VITAL SIGNS: Temperature is 98.0, pulse 66, respirations 17, O2 saturation 100%, blood pressure 187/ 80. HEENT: Unremarkable. NECK: No JVD. LUNGS: Clear. CARDIAC: S1 and S2 regular. ABDOMEN: The mass is palpated below the umbilicus. EXTREMITIES: No edema. LABORATORY DATA: Sodium 137, potassium 3.6, chloride 105, CO2 21, BUN 11, creatinine 0.7, glucose 11 3. Her INR is 1.1. ASSESSMENT: 1. Pulmonary embolism. 2. Metastatic endometrial cancer. 3. Question of subclinical seizures. PLAN: 1. Continue evaluation per Neurology. 2. Continue Lovenox and warfarin. 3. Continue palliative care.
--- NOTE | 2017-09-28 12:43 | PRG ---
DATE OF SERVICE: 09/28/2017 CHIEF COMPLAINT: Altered mental status. INTERVAL HISTORY: Per the patient's sister, the patient was better last night, but also was agitated intermittently and is not back to normal self. She has been refusing her IV Keppra according to the nursing note and so far, she has not received any Keppra since yesterday night. No doses were given last night and this morning. Her laboratory workup, no changes since yesterday. Her MRI of the bra in was normal and there was no evidence of acute intracranial process, mass or metastatic disease, al though she has multiple foci of T2 prolongation with periventricular white matter, which is chronic s mall vessel ischemic disease. Her EEG was reviewed by me and she has a low voltage background along with intermittent periodic waves, one cannot rule out subclinical seizures. She most likely has unde rlying seizures in the background. There was significant motion artifact throughout the EEG recordin g. PHYSICAL EXAMINATION: VITAL SIGNS: Her blood pressure is 179/79, pulse 59, temperature 97.7, respiratory rate 16. NEUROLOGIC: The patient is alert, awake, oriented to year and month of September. She was not oriented t o date or the day of the week. She was not oriented to place. She kept saying she was at home and s he does cooperate with examination, but she says she does not like what we are doing to her. 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 I did not notice much of gaze deviation t ciera. Motor examination, normal strength in upper and lower extremities and normal [id number]. IMPRESSION: Patient with encephalopathic EEG with likely subclinical seizures showed evident in the form of periodic complexes seen throughout the recording intermixed with motion artifact. She also h as some frontal fast activity, which is likely due to medication effect. At this time, she has refus ed her Keppra IV since yesterday afternoon. Her MRI does not show any evidence of metastatic disease . RECOMMENDATIONS: 1. Please discuss with the patient's family member and continue Keppra 500 mg b.i.d. 2. If the patient does not improve while on Keppra, please consider lumbar puncture to rule out any infectious etiology in this patient who is immunocompromised.
--- NOTE | 2017-09-28 16:07 | PDOC.PN ---
- Subjective Encounter Start Date: 09/27/17 Encounter Start Time: 09:00 Subjective: pt up in bed more awake today compared to on admission - Objective Resuscitation Status: Resuscitation Status FULL:Full Resuscitation Vital Signs & Weight: Vital Signs (12 hours) Temp Pulse Resp BP Pulse Ox 09/28/17 15:28 98.0 F 62 16 172/102 H 99 09/28/17 11:38 97.7 F 59 L 16 179/79 H 100 09/28/17 08:33 98.0 F 66 17 100 09/28/17 07:31 98.0 F 66 17 187/80 H 100 Weight Weight 179 lb 8 oz I&O: 09/27/17 09/28/17 09/29/17 06:59 06:59 06:59 Intake Total 1134 3350 1150 Output Total 250 Balance 1134 3100 1150 Result Diagrams: 09/27/17 03:59 09/28/17 04:08 Phys Exam - Physical Examination HEENT: PERRLA, moist MMs, sclera anicteric, TM's clear, oral pharynx no lesions , 2+ tonsils Neck: no nodes, no JVD, supple, full ROM Respiratory: no wheezing, no rales, no rhonchi, wheezing present, clear to auscultation bilateral Gastrointestinal: soft, non-tender, no distention, positive bowel sounds Musculoskeletal: no edema, pulses present, edema present Neurological: non-focal, normal sensation, moves all 4 limbs Deviation from normal: oriented x3 Dx/Plan (1) Acute metabolic encephalopathy Code(s): G93.41 - METABOLIC ENCEPHALOPATHY Status: Acute (2) Pulmonary emboli Code(s): I26.99 - OTHER PULMONARY EMBOLISM WITHOUT ACUTE COR PULMONALE Status : Acute (3) H/O malignant neoplasm of uterine body Code(s): Z85.42 - PERSONAL HISTORY OF MALIGNANT NEOPLASM OF OTH PRT UTERUS Status: Chronic Comment: on chemotherapy - Plan * . pt doing much well today as compared to on admission. More awake and oriented x3 MRI no brain mass steroids discontinued will also discontinue abx for now. Review of Systems - Review of Systems Respiratory: negative: Cough, Dry, Shortness of Breath, Hemoptysis, SOB with Excertion, Pleuritic Pain, Sputum, Wheezing Cardiovascular: negative: chest pain, palpitations, orthopnea, paroxysmal nocturnal dyspnea, edema, light headedness, other Gastrointestinal: negative: Nausea, Vomiting, Abdominal Pain, Diarrhea, Constipation, Melena, Hematochezia, Other Genitourinary: negative: Dysuria, Frequency, Incontinence, Hematuria, Retention , Other - Medications/Allergies Allergies/Adverse Reactions: Allergies Allergy/AdvReac Type Severity Reaction Status Date / Time No Known Drug Allergies Allergy Verified 08/09/17 16:23 Medications: Current Medications Cholecalciferol (Vitamin D3) 1,000 units PO DAILY [facility] Last Admin: 09/28/17 10:15 Dose: 1,000 units Enoxaparin Sodium (Lovenox) 80 mg SC 0900,2100 [facility] Last Admin: 09/28/17 10:15 Dose: 80 mg Famotidine (Pepcid) 20 mg SLOW IVP Q12HR [facility] Last Admin: 09/28/17 10:15 Dose: 20 mg Ceftriaxone Sodium 2 gm/ (Sodium Chloride) 100 mls @ 200 mls/hr IVPB Q24HR [facility] Last Admin: 09/27/17 21:24 Dose: 100 mls Sodium Chloride (Normal Saline 0.9%) 1,000 mls @ 100 mls/hr IV .Q10H [facility] Last Admin: 09/28/17 03:31 Dose: Not Given Levetiracetam 500 mg/ Device 100 mls @ 200 mls/hr IVPB BID [facility] Last Admin: 09/28/17 10:15 Dose: Not Given Metoprolol Succinate (Toprol Xl) 100 mg PO DAILY [facility] Last Admin: 09/28/17 10:15 Dose: 100 mg Simvastatin (Zocor) 20 mg PO HS [facility] Last Admin: 09/27/17 21:23 Dose: 20 mg Sodium Chloride (Flush - Normal Saline) 10 ml IVF Q12HR [facility] Last Admin: 09/28/17 10:16 Dose: 10 ml Sodium Chloride (Flush - Normal Saline) 10 ml IVF PRN PRN PRN Reason: Saline Flush Warfarin Sodium (Coumadin) 3 mg PO 1700 [facility] Last Admin: 09/27/17 17:15 Dose: 3 mg
--- NOTE | 2017-09-28 16:11 | PDOC.PN ---
- Subjective Encounter Start Date: 09/28/17 Encounter Start Time: 10:30 Subjective: pt up in bed more awake today - Objective Resuscitation Status: Resuscitation Status FULL:Full Resuscitation Vital Signs & Weight: Vital Signs (12 hours) Temp Pulse Resp BP Pulse Ox 09/28/17 15:28 98.0 F 62 16 172/102 H 99 09/28/17 11:38 97.7 F 59 L 16 179/79 H 100 09/28/17 08:33 98.0 F 66 17 100 09/28/17 07:31 98.0 F 66 17 187/80 H 100 Weight Weight 179 lb 8 oz I&O: 09/27/17 09/28/17 09/29/17 06:59 06:59 06:59 Intake Total 1134 3350 1150 Output Total 250 Balance 1134 3100 1150 Result Diagrams: 09/27/17 03:59 09/28/17 04:08 Phys Exam - Physical Examination HEENT: PERRLA, moist MMs, sclera anicteric, TM's clear, oral pharynx no lesions , 2+ tonsils Neck: no nodes, no JVD, supple, full ROM Respiratory: no wheezing, no rales, no rhonchi, wheezing present, clear to auscultation bilateral Cardiovascular: RRR, no significant murmur, no rub, gallop, irregular Gastrointestinal: soft, non-tender, no distention, positive bowel sounds Musculoskeletal: no edema, pulses present, edema present pt up in bed more awake Psychiatric: normal affect, A&O x 3 Dx/Plan (1) Acute metabolic encephalopathy Code(s): G93.41 - METABOLIC ENCEPHALOPATHY Status: Acute (2) Pulmonary emboli Code(s): I26.99 - OTHER PULMONARY EMBOLISM WITHOUT ACUTE COR PULMONALE Status : Acute (3) H/O malignant neoplasm of uterine body Code(s): Z85.42 - PERSONAL HISTORY OF MALIGNANT NEOPLASM OF OTH PRT UTERUS Status: Chronic Comment: on chemotherapy - Plan * . plan: pt more awake does have intermittent bouts of confusion will discontinue all abx for now. PT got pt up to the side of bed pt started on coumadin and on lovonx Review of Systems - Review of Systems ENT: negative: Ear Pain, Ear Discharge, Nose Pain, Nose Discharge, Nose Congestion, Mouth Pain, Mouth Swelling, Throat Pain, Throat Swelling, Other Respiratory: negative: Cough, Dry, Shortness of Breath, Hemoptysis, SOB with Excertion, Pleuritic Pain, Sputum, Wheezing Cardiovascular: negative: chest pain, palpitations, orthopnea, paroxysmal nocturnal dyspnea, edema, light headedness, other Gastrointestinal: negative: Nausea, Vomiting, Abdominal Pain, Diarrhea, Constipation, Melena, Hematochezia, Other - Medications/Allergies Allergies/Adverse Reactions: Allergies Allergy/AdvReac Type Severity Reaction Status Date / Time No Known Drug Allergies Allergy Verified 08/09/17 16:23 Medications: Current Medications Cholecalciferol (Vitamin D3) 1,000 units PO DAILY [facility] Last Admin: 09/28/17 10:15 Dose: 1,000 units Enoxaparin Sodium (Lovenox) 80 mg SC 0900,2100 [facility] Last Admin: 09/28/17 10:15 Dose: 80 mg Famotidine (Pepcid) 20 mg SLOW IVP Q12HR [facility] Last Admin: 09/28/17 10:15 Dose: 20 mg Ceftriaxone Sodium 2 gm/ (Sodium Chloride) 100 mls @ 200 mls/hr IVPB Q24HR [facility] Last Admin: 09/27/17 21:24 Dose: 100 mls Sodium Chloride (Normal Saline 0.9%) 1,000 mls @ 100 mls/hr IV .Q10H [facility] Last Admin: 09/28/17 03:31 Dose: Not Given Levetiracetam 500 mg/ Device 100 mls @ 200 mls/hr IVPB BID [facility] Last Admin: 09/28/17 10:15 Dose: Not Given Metoprolol Succinate (Toprol Xl) 100 mg PO DAILY [facility] Last Admin: 09/28/17 10:15 Dose: 100 mg Simvastatin (Zocor) 20 mg PO HS [facility] Last Admin: 09/27/17 21:23 Dose: 20 mg Sodium Chloride (Flush - Normal Saline) 10 ml IVF Q12HR [facility] Last Admin: 09/28/17 10:16 Dose: 10 ml Sodium Chloride (Flush - Normal Saline) 10 ml IVF PRN PRN PRN Reason: Saline Flush Warfarin Sodium (Coumadin) 3 mg PO 1700 [facility] Last Admin: 09/27/17 17:15 Dose: 3 mg
[2017-09-28] MEDS ORDERED: hydrALAZINE 20 MG/ML VIAL SLOW IVP PRN (17:07)
[2017-09-28] MEDS: Simvastatin 20 MG TAB PO SCH (21:42)
[2017-09-28] MEDS: Warfarin Sodium 3 MG TAB PO SCH (21:43)
[2017-09-29] MEDS: Sodium Chloride 0.9% 1,000 ML IV SCH (04:24)
[2017-09-29 04:50] LABS: INR-International Normal Ratio 1.2
[2017-09-29 04:54] LABS: ALT (SGPT) Less than 7 U/L (8-55); AST (SGOT) 11 U/L (5-34); Albumin 2.9 g/dL (3.4-4.8); Alkaline Phosphatase 59 U/L (40-150); Anion Gap 11 mmol/L (10-20); BUN (Urea Nitrogen) 7 mg/dL (9.8-20.1); Bilirubin, Total 0.3 mg/dL (0.2-1.2); Calc. Creatinine Clearance 79 mL/min (70-130); Carbon Dioxide 25 mmol/L (23-31); Chloride 104 mmol/L (98-107); Estimated GFR-MDRD Greater than 90; Globulin 3.1 g/dL (2.4-3.5); Glucose 84 mg/dL (83-110); Potassium 3.3 mmol/L (3.5-5.1); Sodium 137 mmol/L (136-145)
[2017-09-29] MEDS: Enoxaparin Sodium 80 MG/0.8 ML SYRINGE SC SCH ×2 (09:00→20:40)
[2017-09-29] MEDS ORDERED: Amlodipine 5 MG TAB PO SCH ×2 (09:45→10:00)
[2017-09-29 10:34] LABS: Magnesium 1.5 mg/dL (1.6-2.6); Phosphorus 2.3 mg/dL (2.3-4.7)
--- NOTE | 2017-09-29 13:37 | PRG ---
DATE OF SERVICE: 09/29/2017 CHIEF COMPLAINT: Altered mental status. INTERVAL HISTORY: The patient is apparently still intermittently confused according to notes. Carolynte r is sleepy, so she could not provide much information. The patient has not received any Keppra thro ug yesterday and per nursing staff today, daughter is agreeable to resuming Keppra and the patient i s being seen by physical therapy for gait assessment at the time of my visit. LABORATORY DATA: No additional lab workup is available except for sodium 137, potassium 3.3, BUN 7, creatinine 0.74, glucose 84 and urinalysis is negative so far. OBJECTIVE: VITAL SIGNS: Blood pressure 140/90, pulse 64, temperature 97.9. GENERAL: She is alert, awake, oriented to time, place and person today. She knew she was at [facility] and seems to be somewhat upset and quiet, but is cooperative. CRANIAL NERVES: Normal extraocular movements and no facial asymmetry. Tongue midline. Motor exam: Bulk normal, tone normal, strength is 5/5, but decreased effort on exam. IMPRESSION: The patient is a 77-year-old lady with altered mental status, which seems to be transien t episodic in nature. Her EEG is abnormal as noted in my chart note yesterday and she has periodic c omplexes intermittently through the recording along with frontal fast activities and sharps potential for subclinical seizures cannot be excluded in this situation. RECOMMENDATIONS: 1. I discussed with the nurse and please continue IV Keppra for now until she is improved completely and then we can switch her to p.o. Keppra. 2. I will have Dr. Haywood follow up with you during her admission.
--- NOTE | 2017-09-29 13:57 | PRG ---
DATE OF SERVICE: 09/29/2017 SUBJECTIVE: The patient is quiet, seems to be doing okay. OBJECTIVE: VITAL SIGNS: Temperature 97.9, pulse 64, blood pressure 140/90, O2 saturation 99%. HEENT: Unremarkable. NECK: No JVD. CHEST: Clear. ABDOMEN: Midline palpable mass below the umbilicus. EXTREMITIES: No edema. LABORATORY DATA: INR is 1.2. Sodium 137, potassium 3.3, chloride 104, CO2 25, BUN 7, creatinine 0.7 , glucose 84. ASSESSMENT: 1. Pulmonary embolism. 2. Uterine cancer. PLAN: 1. Increase dose of warfarin. 2. Continue monitoring INR.
[2017-09-29] MEDS: Famotidine/PF 20 mg/2ml Vial SLOW IVP SCH (15:47)
[2017-09-29] MEDS: Warfarin Sodium 5 MG TAB PO SCH (17:04)
--- NOTE | 2017-09-29 20:32 | PDOC.PN ---
- Subjective Encounter Start Date: 09/29/17 Encounter Start Time: 10:30 Subjective: pt up in bed no complains - Objective Resuscitation Status: Resuscitation Status FULL:Full Resuscitation Vital Signs & Weight: Vital Signs (12 hours) Temp Pulse Pulse Pulse Resp BP BP 09/29/17 16:54 98.7 F 74 16 09/29/17 16:53 98.7 F 74 16 09/29/17 15:32 99.3 F 74 15 09/29/17 11:51 64 140/90 09/29/17 11:36 97.9 F 64 17 09/29/17 11:34 67 74 190/94 H 09/29/17 09:17 BP BP Pulse Ox 09/29/17 16:54 09/29/17 16:53 178/79 H 98 09/29/17 15:32 164/79 H 92 L 09/29/17 11:51 09/29/17 11:36 180/87 H 99 09/29/17 11:34 143/90 H 09/29/17 09:17 96 Weight Weight 172 lb 9.6 oz I&O: 09/28/17 09/29/17 09/30/17 06:59 06:59 06:59 Intake Total 3350 1375 Output Total 250 Balance 3100 1375 Result Diagrams: 09/27/17 03:59 09/29/17 03:43 Phys Exam - Physical Examination HEENT: PERRLA, moist MMs, sclera anicteric, TM's clear, oral pharynx no lesions , 2+ tonsils Neck: no nodes, no JVD, supple, full ROM decreased breath sound to bases Cardiovascular: RRR, no significant murmur, no rub, gallop, irregular Gastrointestinal: soft, non-tender, no distention, positive bowel sounds mild lower ext edema Dx/Plan (1) Acute metabolic encephalopathy Code(s): G93.41 - METABOLIC ENCEPHALOPATHY Status: Acute (2) Pulmonary emboli Code(s): I26.99 - OTHER PULMONARY EMBOLISM WITHOUT ACUTE COR PULMONALE Status : Acute (3) H/O malignant neoplasm of uterine body Code(s): Z85.42 - PERSONAL HISTORY OF MALIGNANT NEOPLASM OF OTH PRT UTERUS Status: Chronic Comment: on chemotherapy (4) Seizure Code(s): R56.9 - UNSPECIFIED CONVULSIONS Status: Acute - Plan * . EEG indicated subclinical seizure which would explains pt's ams. pt on keppra pt encouraged to get up and sit up in the chair. Daughter updated about her medical treatments will continue Lovenox and Coumadin. Review of Systems - Review of Systems Eyes: negative: Pain, Vision Change, Conjunctivae Inflammation, Eyelid Inflammation, Redness, Other ENT: negative: Ear Pain, Ear Discharge, Nose Pain, Nose Discharge, Nose Congestion, Mouth Pain, Mouth Swelling, Throat Pain, Throat Swelling, Other Respiratory: negative: Cough, Dry, Shortness of Breath, Hemoptysis, SOB with Excertion, Pleuritic Pain, Sputum, Wheezing Cardiovascular: negative: chest pain, palpitations, orthopnea, paroxysmal nocturnal dyspnea, edema, light headedness, other Gastrointestinal: negative: Nausea, Vomiting, Abdominal Pain, Diarrhea, Constipation, Melena, Hematochezia, Other - Medications/Allergies Allergies/Adverse Reactions: Allergies Allergy/AdvReac Type Severity Reaction Status Date / Time No Known Drug Allergies Allergy Verified 08/09/17 16:23 Medications: Current Medications Amlodipine Besylate (Norvasc) 5 mg PO BID [facility] Cholecalciferol (Vitamin D3) 1,000 units PO DAILY [facility] Last Admin: 09/29/17 09:00 Dose: 1,000 units Enoxaparin Sodium (Lovenox) 80 mg SC 0900,2100 [facility] Last Admin: 09/29/17 09:00 Dose: 80 mg Famotidine (Pepcid) 20 mg PO BID [facility] Hydralazine HCl (Apresoline) 5 mg SLOW IVP Q6H PRN PRN Reason: SBP>180 Levetiracetam 500 mg/ Device 100 mls @ 200 mls/hr IVPB BID [facility] Last Admin: 09/29/17 11:51 Dose: 100 mls Metoprolol Succinate (Toprol Xl) 100 mg PO DAILY [facility] Last Admin: 09/29/17 09:00 Dose: 100 mg Miscellaneous Medication (Pharmacy To Dose) 0 each PO ASDIR PRN PRN Reason: Pharmacy to Dose [facility] Potassium Chloride (Klor-Con) 40 meq PO BID[facility] Stop: 09/29/17 23:59 Last Admin: 09/29/17 17:04 Dose: 40 meq Simvastatin (Zocor) 20 mg PO [facility] Last Admin: 09/28/17 21:42 Dose: 20 mg Sodium Chloride (Flush - Normal Saline) 10 ml IVF Q12HR [facility] Last Admin: 09/29/17 11:52 Dose: 10 ml Sodium Chloride (Flush - Normal Saline) 10 ml IVF PRN PRN PRN Reason: Saline Flush Warfarin Sodium (Coumadin) 5 mg PO 1700 [facility] Last Admin: 09/29/17 17:04 Dose: 5 mg
[2017-09-29] MEDS: Simvastatin 20 MG TAB PO SCH (20:40)
[2017-09-29] MEDS: Amlodipine 5 MG TAB PO SCH (20:40)
[2017-09-29] MEDS: Famotidine 20 MG TAB PO SCH (20:40)
[2017-09-29] MEDS ORDERED: Furosemide 20 MG TAB PO SCH (20:45)
[2017-09-29] MEDS ORDERED: Magnesium 2 GM/NS 0.9% 100 ML 2 GM in Premix Bag 1 BAG IVPB SCH (21:00)
[2017-09-29] MEDS: Lisinopril 10 MG TAB PO SCH (21:20)
[2017-09-30 05:12] LABS: INR-International Normal Ratio 1.2; Prothrombin Time 15.3 SEC (12.0-14.7)
[2017-09-30 05:49] LABS: ALT (SGPT) Less than 7 U/L (8-55); AST (SGOT) 15 U/L (5-34); Albumin 2.8 g/dL (3.4-4.8); Alkaline Phosphatase 55 U/L (40-150); Anion Gap 11 mmol/L (10-20); BUN (Urea Nitrogen) 7 mg/dL (9.8-20.1); Bilirubin, Total 0.3 mg/dL (0.2-1.2); Calc. Creatinine Clearance 71 mL/min (70-130); Calcium 8.8 mg/dL (7.8-10.44); Carbon Dioxide 28 mmol/L (23-31); Chloride 101 mmol/L (98-107); Estimated GFR-MDRD 86; Globulin 2.9 g/dL (2.4-3.5); Glucose 93 mg/dL (83-110); Potassium 3.5 mmol/L (3.5-5.1); Protein, Total 5.7 g/dL (6.0-8.3); Sodium 136 mmol/L (136-145)
[2017-09-30] MEDS: Amlodipine 5 MG TAB PO SCH ×2 (09:12→21:20)
[2017-09-30] MEDS: Lisinopril 10 MG TAB PO SCH ×2 (09:12→21:20)
[2017-09-30] MEDS: Famotidine 20 MG TAB PO SCH ×2 (09:12→21:20)
[2017-09-30] MEDS: Enoxaparin Sodium 80 MG/0.8 ML SYRINGE SC SCH ×2 (09:13→21:21)
--- NOTE | 2017-09-30 09:51 | PRG ---
DATE OF SERVICE: 09/30/2017 Unfortunately she is having some vaginal bleeding today. Hemodynamically, she is stable. PHYSICAL EXAMINATION: VITAL SIGNS: Temperature 98.8, pulse 82, respirations 16, O2 sat 100%, blood pressure 184/88. HEENT: Unremarkable. NECK: No JVD. LUNGS: Clear. CARDIAC: S1 and S2 regular. ABDOMEN: Mass noted. EXTREMITIES: No edema. LABORATORY DATA: Sodium 136, potassium 3.5, chloride 102, CO2 20, BUN 7, creatinine 0.7, glucose 93. White blood cell count 7.9, hematocrit 33.7, platelet count 304. ASSESSMENT: 1. Pulmonary embolus. 2. Metastatic uterine cancer. RECOMMENDATIONS: Try to speak palliative care. I think we are in a bad situation where the patient is likely to bleed with anticoagulation, yet is probably not a good candidate for IVC filter and that definitely would do nothing to treat the underlying pulmonary embolism.
[2017-09-30 10:01] LABS: Hemoglobin 10.2 g/dL (12.0-16.0)
--- NOTE | 2017-09-30 15:49 | EEG ---
Referring Physician: Dr. Abhishek HERCULES EEG # [id number] TEST TYPE: STAT PORTABLE INPATIENT EEG OBTAINED TO UNDERSTAND PATIENT'S ALTERED MENTAL STATUS REPORT: AN EEG USING THE INTERNATIONAL TEN-TWENTY SYSTEM OF ELECTRODE PLACEMENT WAS PERFORMED. The patient has a diminished voltage encephalopathic background. An occipital rhythm is difficult to discern, but seems to be approximately 8-9 hertz and she has bilateral frontal fast activity, could be medication effect. There is significant motion artifact due to patient movement. Per my discussion with the converting technician, the patient is quite agitated throughout the recording and was upset that she was have the EEG. Intermixed in this background there are several segments of the EEG which show periodic waves. These are not fairly frequent, present throughout the recording. Significance of these remains unclear at this time. IMPRESSION: PATIENT WITH ENCEPHALOPATHIC EEG ALONG WITH SIGNIFICANT MOTION ARTIFACT AND FRONTAL FAST ACTIVITY. INTERMITTENTLY THERE ARE SOME FRONTAL SHARPS THAT ARE NOTED AND THROUGH THE RECORDING WE SEE PERIODIC WAVES, COULD BE SIGNIFICANT N CONDITIONS SUCH HEPATIC OR RENAL IMPAIRMENT OR MAY REPRESENT UNDERLYING SEIZURE ACTIVITY. CLINICAL CORRELATION IS NECESSARY. Neurological Physiotherapist: BARBARA Powered Bridge Specialist: EEG.KELLIE MOLINA
[2017-09-30] MEDS: Warfarin Sodium 5 MG TAB PO SCH (17:17)
--- NOTE | 2017-09-30 18:31 | PDOC.PN ---
- Subjective Encounter Start Date: 09/30/17 Encounter Start Time: 10:00 Subjective: pt up in bed states she feels well -: nurse stated that pt has significant vaginal bleeding - Objective Resuscitation Status: Resuscitation Status FULL:Full Resuscitation Vital Signs & Weight: Vital Signs (12 hours) Temp Pulse Pulse Pulse Resp BP BP 09/30/17 15:39 97.2 F L 75 16 09/30/17 11:35 73 73 157/81 H 177/83 H 09/30/17 11:34 98.4 F 75 16 09/30/17 09:20 09/30/17 09:12 72 09/30/17 08:03 98.9 F 72 16 09/30/17 07:56 98.9 F 72 16 BP Pulse Ox 09/30/17 15:39 161/70 H 92 L 09/30/17 11:35 09/30/17 11:34 151/76 H 97 09/30/17 09:20 100 09/30/17 09:12 09/30/17 08:03 09/30/17 07:56 184/88 H 98 Weight Weight 170 lb 8 oz I&O: 09/29/17 09/30/17 10/01/17 06:59 06:59 06:59 Intake Total 1375 740 Balance 1375 740 Result Diagrams: 09/30/17 16:02 09/30/17 04:58 Phys Exam - Physical Examination HEENT: PERRLA, moist MMs, sclera anicteric, TM's clear, oral pharynx no lesions , 2+ tonsils Respiratory: no wheezing, no rales, no rhonchi, wheezing present, clear to auscultation bilateral Cardiovascular: RRR, no significant murmur, no rub, gallop, irregular Gastrointestinal: soft, positive bowel sounds endometrial mass palpable Dx/Plan (1) Acute metabolic encephalopathy Code(s): G93.41 - METABOLIC ENCEPHALOPATHY Status: Acute (2) Pulmonary emboli Code(s): I26.99 - OTHER PULMONARY EMBOLISM WITHOUT ACUTE COR PULMONALE Status : Acute (3) H/O malignant neoplasm of uterine body Code(s): Z85.42 - PERSONAL HISTORY OF MALIGNANT NEOPLASM OF OTH PRT UTERUS Status: Chronic Comment: on chemotherapy (4) Seizure Code(s): R56.9 - UNSPECIFIED CONVULSIONS Status: Acute (5) Vaginal bleeding Code(s): N93.9 - ABNORMAL UTERINE AND VAGINAL BLEEDING, UNSPECIFIED Status: Acute - Plan * pt's daughter updated on vaginal bleeding. Hh stable. continue to bridge with lovonox. Did call her oncologist and left message [phone] * neurology wants pt to be on iv keppra for now * encouraged pt to get up in chair Review of Systems - Review of Systems ENT: negative: Ear Pain, Ear Discharge, Nose Pain, Nose Discharge, Nose Congestion, Mouth Pain, Mouth Swelling, Throat Pain, Throat Swelling, Other Respiratory: negative: Cough, Dry, Shortness of Breath, Hemoptysis, SOB with Excertion, Pleuritic Pain, Sputum, Wheezing Cardiovascular: negative: chest pain, palpitations, orthopnea, paroxysmal nocturnal dyspnea, edema, light headedness, other Gastrointestinal: negative: Nausea, Vomiting, Abdominal Pain, Diarrhea, Constipation, Melena, Hematochezia, Other - Medications/Allergies Allergies/Adverse Reactions: Allergies Allergy/AdvReac Type Severity Reaction Status Date / Time No Known Drug Allergies Allergy Verified 08/09/17 16:23 Medications: Current Medications Amlodipine Besylate (Norvasc) 5 mg PO BID [facility] Last Admin: 09/30/17 09:12 Dose: 5 mg Cholecalciferol (Vitamin D3) 1,000 units PO DAILY [facility] Last Admin: 09/30/17 09:13 Dose: 1,000 units Enoxaparin Sodium (Lovenox) 80 mg SC 0900,2100 [facility] Last Admin: 09/30/17 09:13 Dose: 80 mg Famotidine (Pepcid) 20 mg PO BID [facility] Last Admin: 09/30/17 09:12 Dose: 20 mg Hydralazine HCl (Apresoline) 5 mg SLOW IVP Q6H PRN PRN Reason: SBP>180 Levetiracetam 500 mg/ Device 100 mls @ 200 mls/hr IVPB BID [facility] Last Admin: 09/30/17 09:13 Dose: 100 mls Lisinopril (Zestril) 10 mg PO BID [facility] Last Admin: 09/30/17 09:12 Dose: 10 mg Metoprolol Succinate (Toprol Xl) 100 mg PO DAILY [facility] Last Admin: 09/30/17 09:12 Dose: 100 mg Miscellaneous Medication (Pharmacy To Dose) 0 each PO ASDIR PRN PRN Reason: Pharmacy to Dose WARFARIN Simvastatin (Zocor) 20 mg PO HS [facility] Last Admin: 09/29/17 20:40 Dose: 20 mg Sodium Chloride (Flush - Normal Saline) 10 ml IVF Q12HR [facility] Last Admin: 09/30/17 09:13 Dose: 10 ml Sodium Chloride (Flush - Normal Saline) 10 ml IVF PRN PRN PRN Reason: Saline Flush Warfarin Sodium (Coumadin) 5 mg PO 1700 [facility] Last Admin: 09/30/17 17:17 Dose: 5 mg
[2017-09-30] MEDS: Simvastatin 20 MG TAB PO SCH (21:20)
[2017-09-30 21:32] LABS: Hemoglobin 10.1 g/dL (12.0-16.0)
[2017-10-01 05:22] LABS: Hemoglobin 10.3 g/dL (12.0-16.0)
[2017-10-01 05:28] LABS: INR-International Normal Ratio 1.2; Prothrombin Time 14.9 SEC (12.0-14.7)
[2017-10-01 05:38] LABS: ALT (SGPT) Less than 7 U/L (8-55); AST (SGOT) 13 U/L (5-34); Albumin 2.8 g/dL (3.4-4.8); Alkaline Phosphatase 56 U/L (40-150); Anion Gap 10 mmol/L (10-20); BUN (Urea Nitrogen) 7 mg/dL (9.8-20.1); Bilirubin, Total 0.3 mg/dL (0.2-1.2); Calc. Creatinine Clearance 76 mL/min (70-130); Calcium 8.7 mg/dL (7.8-10.44); Carbon Dioxide 29 mmol/L (23-31); Chloride 100 mmol/L (98-107); Estimated GFR-MDRD Greater than 90; Globulin 3.1 g/dL (2.4-3.5); Glucose 85 mg/dL (83-110); Magnesium 1.7 mg/dL (1.6-2.6); Potassium 3.6 mmol/L (3.5-5.1); Protein, Total 5.9 g/dL (6.0-8.3); Sodium 135 mmol/L (136-145)
--- NOTE | 2017-10-01 08:48 | PRG ---
DATE OF SERVICE: 10/01/2017 The patient is doing okay. She does not talk very much. PHYSICAL EXAMINATION: VITAL SIGNS: T-max was 101.5, currently 98.6, pulse 86, respirations 16, O2 sat 92%, blood pressure 130/79. HEENT: Unremarkable. NECK: No JVD. LUNGS: Fairly clear. CARDIAC: S1 and S2 regular. ABDOMEN: Mass palpable. EXTREMITIES: No edema. LABORATORY DATA: Hemoglobin 10, hematocrit 32.0. INR 1.2. Sodium 135, potassium 3.6, chloride 100, CO2 of 29, BUN 7, creatinine 0.7, glucose 85. ASSESSMENT: 1. Pulmonary embolism. 2. Metastatic uterine cancer. PLAN: This is a tough situation. I am not sure that the patient is going to be able to continue on anticoagulation secondary to potential uterine bleeding. I think that she has medical problems that cannot be fixed and that we need to press palliative care/hospice care. I spoke to the patient's sis ter today. The sister is a retired RN who worked with hospice patients in the past. I was trying to see if we can enlist her help in dealing with the patient's daughter who is having trouble coming to fresh food manager with all this. In the meantime, we are continuing warfarin at dose of 5 mg a day. I am hesit ant to go up any further as I think she will probably start to bump out her INR in the next day or tw o.
[2017-10-01] MEDS: Lisinopril 10 MG TAB PO SCH ×2 (08:59→21:20)
[2017-10-01] MEDS: Enoxaparin Sodium 80 MG/0.8 ML SYRINGE SC SCH ×2 (09:00→21:21)
[2017-10-01] MEDS: Amlodipine 5 MG TAB PO SCH ×2 (09:00→21:20)
[2017-10-01] MEDS: Famotidine 20 MG TAB PO SCH ×2 (09:00→21:20)
[2017-10-01 10:14] LABS: Hemoglobin 9.8 g/dL (12.0-16.0)
--- NOTE | 2017-10-01 13:10 | PDOC.PN ---
- Subjective Encounter Start Date: 10/01/17 Encounter Start Time: 13:12 patient seen and examined following admission for Pulmonary Embolism. No acute events overnight. No complaints today. - Objective Resuscitation Status: Resuscitation Status FULL:Full Resuscitation MAR Reviewed: Yes Vital Signs & Weight: Vital Signs (12 hours) Temp Pulse Resp BP BP Pulse Ox 10/01/17 11:53 99.7 F H 89 20 130/71 92 L 10/01/17 09:00 86 10/01/17 08:59 98.6 F 86 16 139/79 92 L 10/01/17 07:44 98.6 F 86 16 139/79 92 L 10/01/17 04:00 99.9 F H 85 18 122/82 91 L 10/01/17 01:20 134/67 Weight Weight 170 lb 3.2 oz I&O: 09/30/17 10/01/17 10/02/17 06:59 06:59 06:59 Intake Total 740 120 Balance 740 120 Result Diagrams: 10/01/17 09:50 10/01/17 05:02 Phys Exam - Physical Examination Constitutional: NAD HEENT: moist MMs, sclera anicteric, oral pharynx no lesions Neck: supple, full ROM Respiratory: no wheezing, no rales, no rhonchi, clear to auscultation bilateral Cardiovascular: RRR, no significant murmur, no rub Gastrointestinal: soft, non-tender, no distention, positive bowel sounds Musculoskeletal: no edema, pulses present Neurological: non-focal Skin: no rash, normal turgor Dx/Plan (1) Pulmonary emboli Code(s): I26.99 - OTHER PULMONARY EMBOLISM WITHOUT ACUTE COR PULMONALE Status : Acute Qualifiers: Pulmonary embolism type: other Chronicity: acute Acute cor pulmonale presence: without acute cor pulmonale Qualified Code(s): I26.99 - Other pulmonary embolism without acute cor pulmonale Comment: On anticoagulation with Warfarin. Monitor INR. (2) Seizure Code(s): R56.9 - UNSPECIFIED CONVULSIONS Status: Acute Comment: Seizure free on Keppra. Neurology on board. recs appreciated. (3) H/O malignant neoplasm of uterine body Code(s): Z85.42 - PERSONAL HISTORY OF MALIGNANT NEOPLASM OF OTH PRT UTERUS Status: Chronic Comment: on chemotherapy (4) Vaginal bleeding Code(s): N93.9 - ABNORMAL UTERINE AND VAGINAL BLEEDING, UNSPECIFIED Status: Acute (5) HTN (hypertension) Code(s): I10 - ESSENTIAL (PRIMARY) HYPERTENSION Status: Chronic Qualifiers: Hypertension type: essential hypertension (6) Acute metabolic encephalopathy Code(s): G93.41 - METABOLIC ENCEPHALOPATHY Status: Resolved - Plan cont current plan of care, plan discussed w/ family, out of bed/ambulate, DVT proph w/SCDs * . Review of Systems - Medications/Allergies Allergies/Adverse Reactions: Allergies Allergy/AdvReac Type Severity Reaction Status Date / Time No Known Drug Allergies Allergy Verified 08/09/17 16:23 Medications: Current Medications Amlodipine Besylate (Norvasc) 5 mg PO BID [facility] Last Admin: 10/01/17 09:00 Dose: 5 mg Cholecalciferol (Vitamin D3) 1,000 units PO DAILY [facility] Last Admin: 10/01/17 09:00 Dose: 1,000 units Enoxaparin Sodium (Lovenox) 80 mg SC 0900,2100 [facility] Last Admin: 10/01/17 09:00 Dose: 80 mg Famotidine (Pepcid) 20 mg PO BID [facility] Last Admin: 10/01/17 09:00 Dose: 20 mg Hydralazine HCl (Apresoline) 5 mg SLOW IVP Q6H PRN PRN Reason: SBP>180 Levetiracetam 500 mg/ Device 100 mls @ 200 mls/hr IVPB BID [facility] Last Admin: 10/01/17 08:59 Dose: 100 mls Lisinopril (Zestril) 10 mg PO BID [facility] Last Admin: 10/01/17 08:59 Dose: 10 mg Metoprolol Succinate (Toprol Xl) 100 mg PO DAILY [facility] Last Admin: 10/01/17 09:00 Dose: 100 mg Miscellaneous Medication (Pharmacy To Dose) 0 each PO ASDIR PRN PRN Reason: Pharmacy to Dose WARFARIN Morphine Sulfate (Morphine) 3 mg SLOW IVP Q4H PRN PRN Reason: Pain Last Admin: 10/01/17 00:41 Dose: 3 mg Simvastatin (Zocor) 20 mg PO HS [facility] Last Admin: 09/30/17 21:20 Dose: 20 mg Sodium Chloride (Flush - Normal Saline) 10 ml IVF Q12HR [facility] Last Admin: 10/01/17 09:00 Dose: 10 ml Sodium Chloride (Flush - Normal Saline) 10 ml IVF PRN PRN PRN Reason: Saline Flush Warfarin Sodium (Coumadin) 5 mg PO 1700 [facility] Last Admin: 09/30/17 17:17 Dose: 5 mg
[2017-10-01 15:50] LABS: Hemoglobin 9.7 g/dL (12.0-16.0)
[2017-10-01] MEDS: Warfarin Sodium 5 MG TAB PO SCH (16:48)
[2017-10-01] MEDS: Simvastatin 20 MG TAB PO SCH (21:21)
[2017-10-01 21:55] LABS: Hemoglobin 8.5 g/dL (12.0-16.0)
[2017-10-02 05:25] LABS: Hemoglobin 8.4 g/dL (12.0-16.0); Mean Corpuscular HGB CONC 32.3 g/dL (32.0-36.0); Mean Corpuscular Hemoglobin 27.2 pg (27.0-31.0); Mean Corpuscular Volume 84.2 fL (78.0-98.0); Mean Platelet Volume 8.4 fL (7.4-10.4); Platelet Count 256 thou/uL (130-400); Red Blood Cell (RBC) Count 3.08 mill/uL (4.20-5.40); White Blood Cell (WBC) Count 13.6 thou/uL (4.8-10.8)
[2017-10-02 05:34] LABS: INR-International Normal Ratio 1.3; Prothrombin Time 16.9 SEC (12.0-14.7)
[2017-10-02 05:57] LABS: Anion Gap 12 mmol/L (10-20); BUN (Urea Nitrogen) 10 mg/dL (9.8-20.1); Calc. Creatinine Clearance 83 mL/min (70-130); Calcium 8.5 mg/dL (7.8-10.44); Carbon Dioxide 25 mmol/L (23-31); Chloride 101 mmol/L (98-107); Estimated GFR-MDRD Greater than 90; Glucose 83 mg/dL (83-110); Potassium 3.7 mmol/L (3.5-5.1); Sodium 134 mmol/L (136-145)
--- NOTE | 2017-10-02 09:06 | PRG ---
DATE OF SERVICE: 10/02/2017 The patient seems to be doing reasonably well. She has no complaints or questions. PHYSICAL EXAMINATION: VITAL SIGNS: On exam temperature is 99.0, pulse 86, respiration rate 18, O2 sat 93%, blood pressure 151/69. HEENT: Unremarkable. NECK: No JVD. CHEST: Clear. CARDIAC: S1 and S2 regular. ABDOMEN: Mass palpated below the umbilicus. EXTREMITIES: No edema. LABORATORY DATA: INR is 1.3, hemoglobin 8.4, hematocrit 26.0. Sodium 134, potassium 3.7, chloride 1 01, CO2 25, BUN 10, creatinine 0.6, glucose 83. ASSESSMENT: 1. Pulmonary embolism. 2. Anemia which seems to be worsening somewhat. RECOMMENDATIONS: I am really concerned that this individual will not tolerate anticoagulation. Pall iative care is speaking with the family. They seemed to have unrealistic expectations about care. N o further recommendations at this time.
[2017-10-02] MEDS: Enoxaparin Sodium 80 MG/0.8 ML SYRINGE SC SCH ×2 (09:18→20:52)
[2017-10-02] MEDS: Famotidine 20 MG TAB PO SCH ×2 (09:19→20:50)
[2017-10-02] MEDS: Amlodipine 5 MG TAB PO SCH ×2 (09:19→20:51)
[2017-10-02] MEDS: Lisinopril 10 MG TAB PO SCH ×2 (09:19→20:51)
--- NOTE | 2017-10-02 12:00 | PDOC.PN ---
- Subjective Encounter Start Date: 10/02/17 Encounter Start Time: 11:59 Patient seen and examined. She has a h/o uterine malignancy with vaginal bleeding and was admitted for Acute Pulmonary Embolism. She has been cautiously started on anticoagulation and family made the decision to make her DNR. Palliative care also on board and discussing Hospice care. No acute overnight and hemoglobin has been stable. INR slowly creeping up. - Objective Resuscitation Status: Resuscitation Status FULL:Full Resuscitation MAR Reviewed: Yes Vital Signs & Weight: Vital Signs (12 hours) Temp Pulse Resp BP BP Pulse Ox 10/02/17 11:49 98.8 F 83 16 111/58 L 95 10/02/17 09:19 86 151/69 H 10/02/17 08:00 99 F 86 18 151/69 H 93 L 10/02/17 03:57 98.6 F 84 18 122/69 93 L Weight Weight 167 lb 11.2 oz I&O: 10/01/17 10/02/17 10/03/17 06:59 06:59 06:59 Intake Total 120 518 Balance 120 518 Result Diagrams: 10/02/17 04:39 10/02/17 04:39 Phys Exam - Physical Examination Constitutional: NAD HEENT: moist MMs, sclera anicteric Neck: supple, full ROM Respiratory: no wheezing, no rales, no rhonchi, clear to auscultation bilateral Cardiovascular: RRR, no significant murmur, no rub Gastrointestinal: soft, non-tender, no distention, positive bowel sounds Musculoskeletal: no edema, pulses present Skin: no rash, normal turgor Dx/Plan (1) Pulmonary emboli Code(s): I26.99 - OTHER PULMONARY EMBOLISM WITHOUT ACUTE COR PULMONALE Status : Acute Qualifiers: Pulmonary embolism type: other Chronicity: acute Acute cor pulmonale presence: without acute cor pulmonale Qualified Code(s): I26.99 - Other pulmonary embolism without acute cor pulmonale Comment: On anticoagulation with Warfarin. Monitor INR. (2) Seizure Code(s): R56.9 - UNSPECIFIED CONVULSIONS Status: Acute Comment: Seizure free on Keppra. Neurology on board. recs appreciated. (3) H/O malignant neoplasm of uterine body Code(s): Z85.42 - PERSONAL HISTORY OF MALIGNANT NEOPLASM OF OTH PRT UTERUS Status: Chronic Comment: on chemotherapy (4) Vaginal bleeding Code(s): N93.9 - ABNORMAL UTERINE AND VAGINAL BLEEDING, UNSPECIFIED Status: Acute Comment: Hemoglobin stable. (5) HTN (hypertension) Code(s): I10 - ESSENTIAL (PRIMARY) HYPERTENSION Status: Chronic Qualifiers: Hypertension type: essential hypertension Qualified Code(s): I10 - Essential (primary) hypertension (6) Acute metabolic encephalopathy Code(s): G93.41 - METABOLIC ENCEPHALOPATHY Status: Resolved - Plan cont current plan of care, plan discussed w/ family, social work manager * . Review of Systems - Medications/Allergies Allergies/Adverse Reactions: Allergies Allergy/AdvReac Type Severity Reaction Status Date / Time No Known Drug Allergies Allergy Verified 08/09/17 16:23 Medications: Current Medications Amlodipine Besylate (Norvasc) 5 mg PO BID [facility] Last Admin: 10/02/17 09:19 Dose: 5 mg Cholecalciferol (Vitamin D3) 1,000 units PO DAILY [facility] Last Admin: 10/02/17 09:19 Dose: 1,000 units Enoxaparin Sodium (Lovenox) 80 mg SC 0900,2100 [facility] Last Admin: 10/02/17 09:18 Dose: 80 mg Famotidine (Pepcid) 20 mg PO BID [facility] Last Admin: 10/02/17 09:19 Dose: 20 mg Hydralazine HCl (Apresoline) 5 mg SLOW IVP Q6H PRN PRN Reason: SBP>180 Levetiracetam 500 mg/ Device 100 mls @ 200 mls/hr IVPB BID [facility] Last Admin: 10/02/17 09:18 Dose: 100 mls Lisinopril (Zestril) 10 mg PO BID [facility] Last Admin: 10/02/17 09:19 Dose: 10 mg Metoprolol Succinate (Toprol Xl) 100 mg PO DAILY [facility] Last Admin: 10/02/17 09:18 Dose: 100 mg Miscellaneous Medication (Pharmacy To Dose) 0 each PO ASDIR PRN PRN Reason: Pharmacy to Dose WARFARIN Morphine Sulfate (Morphine) 3 mg SLOW IVP Q4H PRN PRN Reason: Pain Last Admin: 10/02/17 10:52 Dose: 3 mg Simvastatin (Zocor) 20 mg PO HS [facility] Last Admin: 10/01/17 21:21 Dose: 20 mg Sodium Chloride (Flush - Normal Saline) 10 ml IVF Q12HR [facility] Last Admin: 10/02/17 09:20 Dose: 10 ml Sodium Chloride (Flush - Normal Saline) 10 ml IVF PRN PRN PRN Reason: Saline Flush Warfarin Sodium (Coumadin) 5 mg PO 1700 [facility] Last Admin: 10/01/17 16:48 Dose: 5 mg
[2017-10-02] MEDS: Warfarin Sodium 5 MG TAB PO SCH (17:58)
[2017-10-02] MEDS: Simvastatin 20 MG TAB PO SCH (20:52)
[2017-10-03 05:16] LABS: INR-International Normal Ratio 1.5; Prothrombin Time 18.5 SEC (12.0-14.7)
[2017-10-03 05:17] LABS: #Eosinphils 0.2 thou/uL (0.0-0.7); #Lymphocytes 1.5 thou/uL (1.20-3.40); #Monocytes 1.3 thou/uL (0.11-0.59); #Neutrophils 10.6 thou/uL (1.40-6.50); %Basophils 0.1 % (0.0-1.0); %Eosinophils 1.6 % (0.0-10.0); %Lymphocytes 10.9 % (21.0-51.0); %Monocytes 9.3 % (0.0-10.0); Hemoglobin 6.7 g/dL (12.0-16.0); Mean Corpuscular HGB CONC 32.8 g/dL (32.0-36.0); Mean Corpuscular Hemoglobin 27.7 pg (27.0-31.0); Mean Corpuscular Volume 84.3 fL (78.0-98.0); Mean Platelet Volume 8.2 fL (7.4-10.4); Platelet Count 233 thou/uL (130-400); Red Blood Cell (RBC) Count 2.43 mill/uL (4.20-5.40); White Blood Cell (WBC) Count 13.6 thou/uL (4.8-10.8)
[2017-10-03] MEDS ORDERED: Zolpidem Tartrate 5 MG TAB PO PRN (07:06)
[2017-10-03] MEDS ORDERED: Acetaminophen 325 MG TAB PO PRN (07:06)
[2017-10-03] MEDS ORDERED: Sodium Chloride 0.65% Nasal 44 ML BOT EA NARE PRN (07:06)
[2017-10-03] MEDS ORDERED: Ondansetron ODT 4 MG TAB PO PRN (07:06)
[2017-10-03] MEDS ORDERED: Diabetic Tussin 200 MG/10 ML UDCUP PO PRN (07:06)
[2017-10-03] MEDS ORDERED: Mag-Al 1200 mg/1200 mg/30 ML UDCUP PO PRN (07:06)
[2017-10-03] MEDS ORDERED: Ondansetron HCl/PF 4 MG/2 ML Vial IVP PRN (07:06)
[2017-10-03] MEDS ORDERED: Chloraseptic Spray 180 ml Bottle PO PRN (07:06)
[2017-10-03] MEDS ORDERED: Eucerin (Mineral Oil/Petrolatum,White) 30 gm Jar TOP PRN (07:06)
[2017-10-03] MEDS ORDERED: Loperamide HCl 2 MG CAP PO PRN (07:06)
[2017-10-03] MEDS ORDERED: Loratadine 10 MG TAB PO PRN (07:06)
[2017-10-03] MEDS ORDERED: Artificial Tears 18 DROP/0.9 ML EA EYE PRN (07:06)
[2017-10-03] MEDS: Lisinopril 5 MG TAB PO SCH ×2 (09:37→21:20)
[2017-10-03] MEDS: Amlodipine 5 MG TAB PO SCH ×2 (09:37→21:20)
[2017-10-03] MEDS: Enoxaparin Sodium 80 MG/0.8 ML SYRINGE SC SCH (10:55)
--- NOTE | 2017-10-03 11:10 | PDOC.PN ---
- Subjective Encounter Start Date: 10/03/17 Encounter Start Time: 07:30 -: old records requested/rev pt is weak, no chest pain, no dyspnea, Patient seen and examined for anemia and PE. No new complaints. No overnight events - Objective Resuscitation Status: Resuscitation Status FULL:Full Resuscitation MAR Reviewed: Yes Vital Signs & Weight: Vital Signs (12 hours) Temp Pulse Pulse Resp BP BP Pulse Ox 10/03/17 09:50 99.9 F H 93 16 105/63 10/03/17 09:37 90 10/03/17 08:00 99.9 F H 93 16 10/03/17 07:49 99.7 F H 90 16 118/72 96 10/03/17 03:56 99.6 F 87 20 93/50 L 93 L 10/03/17 00:00 99.8 F H 86 20 103/62 97 Weight Weight 168 lb 1.6 oz I&O: 10/02/17 10/03/17 10/04/17 06:59 06:59 06:59 Intake Total 518 320 0 Balance 518 320 0 Result Diagrams: 10/03/17 04:33 10/02/17 04:39 EKG Reviewed by me: Yes (nsr) Phys Exam - Physical Examination Constitutional: NAD HEENT: PERRLA, sclera anicteric pallor+ Neck: no nodes, no JVD, supple Respiratory: no wheezing, no rales, no rhonchi mediport+ Cardiovascular: RRR, no significant murmur, no rub Gastrointestinal: soft, non-tender, no distention, positive bowel sounds Musculoskeletal: no edema, pulses present Neurological: non-focal, normal sensation Lymphatic: no nodes Psychiatric: normal affect Skin: no rash, normal turgor Dx/Plan (1) Acute metabolic encephalopathy Code(s): G93.41 - METABOLIC ENCEPHALOPATHY Status: Resolved Comment: now stable baseline (2) Acute pulmonary embolism Code(s): I26.99 - OTHER PULMONARY EMBOLISM WITHOUT ACUTE COR PULMONALE Status : Acute Comment: on anticoagulation (3) Seizure Code(s): R56.9 - UNSPECIFIED CONVULSIONS Status: Acute Comment: on Keppra (4) Symptomatic anemia Code(s): D64.9 - ANEMIA, UNSPECIFIED Status: Acute Comment: today will transfuse one unit PRBC for low H & H (5) Vaginal bleeding Code(s): N93.9 - ABNORMAL UTERINE AND VAGINAL BLEEDING, UNSPECIFIED Status: Acute Comment: intermittent (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 (7) Anemia of chronic disease Code(s): D63.8 - ANEMIA IN OTHER CHRONIC DISEASES CLASSIFIED ELSEWHERE Status : Chronic (8) Ascites Code(s): R18.8 - OTHER ASCITES Status: Chronic Qualifiers: Ascites type: malignant (9) Dyslipidemia Code(s): E78.5 - HYPERLIPIDEMIA, UNSPECIFIED Status: Chronic (10) H/O malignant neoplasm of uterine body Code(s): Z85.42 - PERSONAL HISTORY OF MALIGNANT NEOPLASM OF OTH PRT UTERUS Status: Chronic Comment: on chemotherapy (11) HTN (hypertension) Code(s): I10 - ESSENTIAL (PRIMARY) HYPERTENSION Status: Chronic Qualifiers: Hypertension type: essential hypertension Qualified Code(s): I10 - Essential (primary) hypertension - Plan cont current plan of care, plan discussed w/ family * pt and family decided to continue chronic anticoagulation despite intermittent vaginal bleeding and low Hb * 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 Review of Systems - Review of Systems Constitutional: weakness, malaise. negative: fever, chills, sweats, other ENT: negative: Ear Pain, Ear Discharge, Nose Pain, Nose Discharge, Nose Congestion, Mouth Pain, Mouth Swelling, Throat Pain, Throat Swelling, Other Respiratory: negative: Cough, Dry, Shortness of Breath, Hemoptysis, SOB with Excertion, Pleuritic Pain, Sputum, Wheezing Cardiovascular: negative: chest pain, palpitations, orthopnea, paroxysmal nocturnal dyspnea, edema, light headedness, other Gastrointestinal: negative: Nausea, Vomiting, Abdominal Pain, Diarrhea, Constipation, Melena, Hematochezia, Other Genitourinary: negative: Dysuria, Frequency, Incontinence, Hematuria, Retention , Other Musculoskeletal: negative: Neck Pain, Shoulder Pain, Arm Pain, Back Pain, Hand Pain, Leg Pain, Foot Pain, Other Skin: negative: Rash, Lesions, Darian, Bruising, Other - Medications/Allergies Allergies/Adverse Reactions: Allergies Allergy/AdvReac Type Severity Reaction Status Date / Time No Known Drug Allergies Allergy Verified 08/09/17 16:23 Medications: Current Medications Acetaminophen (Tylenol) 650 mg PO Q4H PRN PRN Reason: Headache/Fever or Mild Pain Hydrocodone Bitart/Acetaminophen ([place] 5/325) 1 tab PO Q4H PRN PRN Reason: Moderate Pain (4-6) Al Hydroxide/Mg Hydroxide (Maalox) 15 ml PO Q4H PRN PRN Reason: Heartburn or Indigestion Amlodipine Besylate (Norvasc) 5 mg PO BID [facility] Last Admin: 10/03/17 09:37 Dose: Not Given Artificial Tears (Tears Naturale) 0 drop EA EYE PRN PRN PRN Reason: Dry Eyes Cholecalciferol (Vitamin D3) 1,000 units PO DAILY [facility] Last Admin: 10/03/17 10:57 Dose: 1,000 units Guaifenesin (Robitussin Sf) 200 mg PO Q4H PRN PRN Reason: Cough Hydralazine HCl (Apresoline) 5 mg SLOW IVP Q6H PRN PRN Reason: SBP>180 Levetiracetam 500 mg/ Device 100 mls @ 200 mls/hr IVPB BID [facility] Last Admin: 10/03/17 07:56 Dose: 100 mls Lisinopril (Zestril) 5 mg PO BID [facility] Last Admin: 10/03/17 09:37 Dose: Not Given Loperamide HCl (Imodium) 2 mg PO PRN PRN PRN Reason: Diarrhea/Loose Stools Loratadine (Claritin) 10 mg PO DAILYPRN PRN PRN Reason: Sinus Symptoms Magnesium Hydroxide (Milk Of Magnesium) 30 ml PO DAILYPRN PRN PRN Reason: Constipation Metoprolol Succinate (Toprol Xl) 100 mg PO DAILY [facility] Last Admin: 10/03/17 09:37 Dose: Not Given Mineral Oil/White Petrolatum (Eucerin Cream) 0 gm TOP BIDPRN PRN PRN Reason: Dry Skin Miscellaneous Medication (Pharmacy To Dose) 0 each PO ASDIR PRN PRN Reason: Pharmacy to Dose WARFARIN Morphine Sulfate (Morphine) 3 mg SLOW IVP Q4H PRN PRN Reason: Pain Last Admin: 10/02/17 17:58 Dose: 3 mg Ondansetron HCl (Zofran Odt) 4 mg PO Q6H PRN PRN Reason: Nausea/Vomiting Ondansetron HCl (Zofran) 4 mg IVP Q6H PRN PRN Reason: Nausea/Vomiting Pantoprazole Sodium (Protonix) 40 mg PO DAILY [facility] Last Admin: 10/03/17 10:56 Dose: 40 mg Phenol (Chloraseptic Volin 180 Ml Bot) 0 ml PO PRN PRN PRN Reason: Sore Throat Senna (Senokot) 2 tab PO HSPRN PRN PRN Reason: Constipation Simvastatin (Zocor) 20 mg PO HS [facility] Last Admin: 10/02/17 20:52 Dose: 20 mg Sodium Chloride (Flush - Normal Saline) 10 ml IVF Q12HR [facility] Last Admin: 10/03/17 10:57 Dose: Not Given Sodium Chloride (Flush - Normal Saline) 10 ml IVF PRN PRN PRN Reason: Saline Flush Sodium Chloride (Bowring Nasal Volin 0.65%) 0 ml EA NARE QIDPRN PRN PRN Reason: Nasal Congestion Zolpidem Tartrate (Ambien) 5 mg PO HSPRN PRN PRN Reason: Insomnia
--- NOTE | 2017-10-03 12:25 | PRG ---
DATE OF SERVICE: 10/03/2017 SUBJECTIVE: The patient is receiving a blood transfusion this morning. She has continued to pass ut erine blood while the anticoagulation for her pulmonary embolism. PHYSICAL EXAMINATION: VITAL SIGNS: At the current time, her temperature is 99.9, pulse 90, respirations 16, O2 sat 93%, an d blood pressure 105/63. HEENT: Unremarkable. NECK: No JVD. LUNGS: Clear. CARDIAC: S1 and S2 regular. ABDOMEN: Palpable mass in the lower abdomen. EXTREMITIES: No edema. LABORATORY DATA: INR is 1.5. White blood count 13.6, hemoglobin 6.7, hematocrit 20.5, and platelet count 233. Sodium 134, potassium 3.7, chloride 101, CO2 of 25, BUN 10, creatinine 0.6, glucose 83. ASSESSMENT: 1. Pulmonary embolism. 2. Stage IV endometrial cancer with metastasis. PLAN: I spent a great deal of time speaking with the patient at the bedside and I was quite straight forward regarding her diagnosis and prognosis. I think that what we are doing is futile as she has n o hope of improvement from her uterine cancer. Her bleeding indicates to me that she is no longer a candidate for anticoagulation. I would hope that the patient and her daughter can come to [facility] on this and convert to hospice type measures. If they do not want to go that direction, then I th ink she should have an IVC filter placed and that she should be discharged so that she can have [facility] follow up with her oncologist in [place]. It may be that the ethics committee needs to be involved in this. I do not find that the patient wants to make a decision in regard to her health, although I think she probably is competent to do that.
[2017-10-03 13:00] LABS: Hemoglobin 8.3 g/dL (12.0-16.0)
[2017-10-03] MEDS: Simvastatin 20 MG TAB PO SCH (21:29)
[2017-10-04] MEDS: HYDROcodone/Acetaminophen 5/325 mg Tablet PO PRN ×2 (05:33→23:18)
[2017-10-04 05:45] LABS: INR-International Normal Ratio 1.5; Prothrombin Time 18.6 SEC (12.0-14.7)
--- NOTE | 2017-10-04 08:34 | ULT ---
BILATERAL LOWER EXTREMITY VENOUS ULTRASOUND: Date: 10/04/17 COMPARISON: None. HISTORY: Pulmonary thromboembolism. TECHNIQUE: Multiplanar Cruz scale and color Doppler images were obtained in a bilateral lower extremity venous u ltrasound. Spectral analysis of the Doppler waveforms were performed. FINDINGS: The right common femoral vein demonstrates a visible partial thrombus. Flow is still seen within this vessel. The right profunda femoral vein also demonstrates a partial thrombus with flow still present in this vessel. The rest of the venous structures in the right leg show normal compression, flow, an d augmentation. These include the superficial femoral vein, popliteal vein, and venous structures dis maddie to the knee. The left profunda femoral vein only demonstrates partial compression. No visible thrombus is seen, bu t this could be a secondary sign of nonocclusive thrombus. The left common femoral vein, superficial femoral vein, popliteal vein, and posterior tibial vein are patent without evidence of thrombus. IMPRESSION: 1. Partially occlusive deep venous thrombosis in the left leg involving the common femoral vein and profunda femoral vein at the bifurcation. 2. Possible nonocclusive thrombus in the left profunda femoral vein. POS: MARIELY
[2017-10-04] MEDS: Ferrous Sulfate 325 MG TAB PO SCH ×2 (08:37→17:53)
[2017-10-04] MEDS: levETIRAcetam 500 MG TAB PO SCH ×2 (08:38→21:14)
--- NOTE | 2017-10-04 09:21 | PRG ---
DATE OF SERVICE: 10/04/2017 SUBJECTIVE: The patient has no acute complaints. OBJECTIVE: VITAL SIGNS: Temperature 97.6, pulse 85, respiration 16, O2 sat 97%, blood pressure 89/57. GENERAL: The patient is awake. She basically confabulates every answer that she gives me. She has no idea why she is currently in the hospital and certainly does not know that she has a blood clot in her lungs or in her legs. She does note that she has cancer. PHYSICAL EXAMINATION: VITAL SIGNS: Stable. HEENT: Unremarkable. NECK: No JVD. LUNGS: Clear. ABDOMEN: Palpable mass below the umbilicus. EXTREMITIES: No edema. Doppler ultrasound of her leg demonstrated a DVT in the right common femoral vein. LABORATORY DATA: Hemoglobin 8.3, hematocrit 25.1. Sodium 134, potassium 3.7, BUN 10, creatinine 0.6 . ASSESSMENT: 1. Metastatic endometrial cancer. 2. Deep venous thrombosis/pulmonary embolism. 3. Encephalopathy. PLAN: The family has apparently gotten cross with palliative care people. They are requesting trans kylie to [place]. In my conversation with the patient, I do not think she is competent to make any deci jacqueline for herself. I think her daughter has unrealistic expectations about this patient's chance for recovery. If this patient is not accepted for transfer to [place], then I would advocate ethics refer [facility]. I do not think that she is a candidate for further anticoagulation given the bleeding and I cer tainly would not put an IVC filter knowing that she is likely to within the next 1-2 months.
--- NOTE | 2017-10-04 10:46 | PDOC.PN ---
- Subjective Encounter Start Date: 10/04/17 Encounter Start Time: 07:15 Patient seen and examined. pt has no clue about her treatment and diagnosis, very weak, No new complaints. No overnight events - Objective Resuscitation Status: Resuscitation Status FULL:Full Resuscitation MAR Reviewed: Yes Vital Signs & Weight: Vital Signs (12 hours) Temp Pulse Resp BP Pulse Ox 10/04/17 07:45 97.6 F 85 16 89/57 L 97 10/04/17 03:43 98.7 F 89 16 95/57 L 93 L 10/03/17 23:40 98.6 F 90 20 96/54 L 94 L Weight Weight 168 lb 14.4 oz I&O: 10/03/17 10/04/17 10/05/17 06:59 06:59 06:59 Intake Total 320 600 Balance 320 600 Result Diagrams: 10/03/17 12:46 10/02/17 04:39 EKG Reviewed by me: Yes (nsr) Phys Exam - Physical Examination Constitutional: NAD HEENT: PERRLA, moist MMs, sclera anicteric Neck: no JVD, supple Respiratory: no wheezing, no rales, no rhonchi mediport+ Cardiovascular: RRR, no significant murmur, no rub Gastrointestinal: soft, non-tender, no distention, positive bowel sounds Musculoskeletal: no edema, pulses present Neurological: non-focal, normal sensation Lymphatic: no nodes Psychiatric: normal affect Skin: no rash, normal turgor Dx/Plan (1) Acute metabolic encephalopathy Code(s): G93.41 - METABOLIC ENCEPHALOPATHY Status: Resolved Comment: now stable baseline (2) Acute pulmonary embolism Code(s): I26.99 - OTHER PULMONARY EMBOLISM WITHOUT ACUTE COR PULMONALE Status : Acute Comment: (3) Seizure Code(s): R56.9 - UNSPECIFIED CONVULSIONS Status: Acute Comment: on Keppra (4) Symptomatic anemia Code(s): D64.9 - ANEMIA, UNSPECIFIED Status: Acute Comment: (5) Vaginal bleeding Code(s): N93.9 - ABNORMAL UTERINE AND VAGINAL BLEEDING, UNSPECIFIED Status: Acute Comment: intermittent (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 (7) Anemia of chronic disease Code(s): D63.8 - ANEMIA IN OTHER CHRONIC DISEASES CLASSIFIED ELSEWHERE Status : Chronic (8) Ascites Code(s): R18.8 - OTHER ASCITES Status: Chronic Qualifiers: Ascites type: malignant (9) Dyslipidemia Code(s): E78.5 - HYPERLIPIDEMIA, UNSPECIFIED Status: Chronic (10) H/O malignant neoplasm of uterine body Code(s): Z85.42 - PERSONAL HISTORY OF MALIGNANT NEOPLASM OF OTH PRT UTERUS Status: Chronic Comment: on chemotherapy (11) HTN (hypertension) Code(s): I10 - ESSENTIAL (PRIMARY) HYPERTENSION Status: Chronic Qualifiers: Hypertension type: essential hypertension Qualified Code(s): I10 - Essential (primary) hypertension (12) Anasarca Code(s): R60.1 - GENERALIZED EDEMA Status: Acute (13) DVT (deep venous thrombosis) Code(s): I82.409 - ACUTE EMBOLISM AND THOMBOS UNSP DEEP VN UNSP LOWER EXTREMITY Status: Acute Qualifiers: Affected thrombotic vein of extremity: femoral Laterality: left (14) Hypoalbuminemia Code(s): E88.09 - OTH DISORDERS OF PLASMA-PROTEIN METABOLISM, NEC Status: Acute (15) Hypotension Status: Acute (16) Pneumonia Code(s): J18.9 - PNEUMONIA, UNSPECIFIED ORGANISM Status: Suspected - Plan cont current plan of care, continue antibiotics * for hypotension, will DC antihypertensive meds for now * she is not a candidate for chronic anticoagulation given her bleeding, her daughter demands to be treated with anticoagulant, but we think that will create more problems to patient, so we have discontinued lovenox and warfarin * daughter demands on vertical transfer to [facility] if possible, will try to initiate transfer if accepted * i not accepted, then will consult ethics team * As she has DVT, she will need IVC filter if daughter agrees * she needs discharge planning * prognosis is poor * high risk for readmission * needs hospice ideally * medication reviewed as below * symptomatic treatment. Review of Systems - Review of Systems Other: not reliable due to baseline dementia - Medications/Allergies Allergies/Adverse Reactions: Allergies Allergy/AdvReac Type Severity Reaction Status Date / Time No Known Drug Allergies Allergy Verified 08/09/17 16:23 Medications: Current Medications Acetaminophen (Tylenol) 650 mg PO Q4H PRN PRN Reason: Headache/Fever or Mild Pain Last Admin: 10/03/17 21:30 Dose: 650 mg Hydrocodone Bitart/Acetaminophen ([place] 5/325) 1 tab PO Q4H PRN PRN Reason: Moderate Pain (4-6) Last Admin: 10/04/17 05:33 Dose: 1 tab Al Hydroxide/Mg Hydroxide (Maalox) 15 ml PO Q4H PRN PRN Reason: Heartburn or Indigestion Artificial Tears (Tears Naturale) 0 drop EA EYE PRN PRN PRN Reason: Dry Eyes Cholecalciferol (Vitamin D3) 1,000 units PO DAILY [facility] Last Admin: 10/04/17 08:38 Dose: 1,000 units Ferrous Sulfate (Feosol) 325 mg PO BID-[facility] Last Admin: 10/04/17 08:37 Dose: 325 mg Guaifenesin (Robitussin Sf) 200 mg PO Q4H PRN PRN Reason: Cough Hydralazine HCl (Apresoline) 5 mg SLOW IVP Q6H PRN PRN Reason: SBP>180 Levetiracetam (Keppra) 500 mg PO BID [facility] Last Admin: 10/04/17 08:38 Dose: 500 mg Levofloxacin (Levaquin) 500 mg PO 0600 [facility] Loperamide HCl (Imodium) 2 mg PO PRN PRN PRN Reason: Diarrhea/Loose Stools Loratadine (Claritin) 10 mg PO DAILYPRN PRN PRN Reason: Sinus Symptoms Magnesium Hydroxide (Milk Of Magnesium) 30 ml PO DAILYPRN PRN PRN Reason: Constipation Mineral Oil/White Petrolatum (Eucerin Cream) 0 gm TOP BIDPRN PRN PRN Reason: Dry Skin Morphine Sulfate (Morphine) 3 mg SLOW IVP Q4H PRN PRN Reason: Pain Last Admin: 10/02/17 17:58 Dose: 3 mg Ondansetron HCl (Zofran Odt) 4 mg PO Q6H PRN PRN Reason: Nausea/Vomiting Ondansetron HCl (Zofran) 4 mg IVP Q6H PRN PRN Reason: Nausea/Vomiting Pantoprazole Sodium (Protonix) 40 mg PO DAILY [facility] Last Admin: 10/04/17 08:38 Dose: 40 mg Phenol (Chloraseptic [place] 180 Ml Bot) 0 ml PO PRN PRN PRN Reason: Sore Throat Senna (Senokot) 2 tab PO HSPRN PRN PRN Reason: Constipation Simvastatin (Zocor) 20 mg PO HS [facility] Last Admin: 10/03/17 21:29 Dose: 20 mg Sodium Chloride (Flush - Normal Saline) 10 ml IVF Q12HR [facility] Last Admin: 10/04/17 08:40 Dose: 10 ml Sodium Chloride (Flush - Normal Saline) 10 ml IVF PRN PRN PRN Reason: Saline Flush Sodium Chloride ([place] Nasal [place] 0.65%) 0 ml EA NARE QIDPRN PRN PRN Reason: Nasal Congestion Zolpidem Tartrate (Ambien) 5 mg PO HSPRN PRN PRN Reason: Insomnia
[2017-10-04] MEDS: Simvastatin 20 MG TAB PO SCH (21:14)
[2017-10-04] MEDS: Milk Of Magnesia 30 ML UDCUP PO PRN (23:18)
[2017-10-05] MEDS: HYDROcodone/Acetaminophen 5/325 mg Tablet PO PRN (05:40)
[2017-10-05 05:48] LABS: Hemoglobin 7.6 g/dL (12.0-16.0); Mean Corpuscular Hemoglobin 28.4 pg (27.0-31.0); Mean Corpuscular Volume 86.1 fL (78.0-98.0); Mean Platelet Volume 7.5 fL (7.4-10.4); Platelet Count 257 thou/uL (130-400); RBC Distribution Width 18.7 % (11.5-14.5); Red Blood Cell (RBC) Count 2.68 mill/uL (4.20-5.40); White Blood Cell (WBC) Count 10.9 thou/uL (4.8-10.8)
[2017-10-05 06:22] LABS: Anion Gap 12 mmol/L (10-20); BUN (Urea Nitrogen) 9 mg/dL (9.8-20.1); Calc. Creatinine Clearance 78 mL/min (70-130); Calcium 8.5 mg/dL (7.8-10.44); Carbon Dioxide 28 mmol/L (23-31); Estimated GFR-MDRD Greater than 90; Glucose 82 mg/dL (83-110); Potassium 3.8 mmol/L (3.5-5.1); Sodium 137 mmol/L (136-145)
[2017-10-05 06:27] LABS: Chloride 101 mmol/L (98-107)
[2017-10-05] MEDS: levETIRAcetam 500 MG TAB PO SCH ×2 (08:31→21:20)
[2017-10-05] MEDS: Ferrous Sulfate 325 MG TAB PO SCH ×2 (08:34→16:19)
--- NOTE | 2017-10-05 10:54 | PDOC.PN ---
- Subjective Encounter Start Date: 10/05/17 Encounter Start Time: 07:10 she is waiting for transfer to other hospital, no new problems - Objective Resuscitation Status: Resuscitation Status FULL:Full Resuscitation MAR Reviewed: Yes Vital Signs & Weight: Vital Signs (12 hours) Temp Pulse Resp BP Pulse Ox 10/05/17 07:26 97.3 F L 78 18 106/61 94 L 10/05/17 04:00 97.2 F L 84 18 110/57 L 100 10/05/17 00:00 98.6 F 91 16 117/63 95 Weight Weight 164 lb 11.2 oz I&O: 10/04/17 10/05/17 10/06/17 06:59 06:59 06:59 Intake Total 600 500 Balance 600 500 Result Diagrams: 10/05/17 05:21 10/05/17 05:21 EKG Reviewed by me: Yes (nsr) Phys Exam - Physical Examination Constitutional: NAD HEENT: PERRLA, moist MMs, sclera anicteric Neck: no JVD, supple Respiratory: no wheezing, no rales, no rhonchi Cardiovascular: RRR, no significant murmur, no rub Gastrointestinal: soft, non-tender, no distention, positive bowel sounds Musculoskeletal: no edema, pulses present Neurological: moves all 4 limbs Lymphatic: no nodes Psychiatric: normal affect Skin: no rash, normal turgor Dx/Plan (1) Acute metabolic encephalopathy Code(s): G93.41 - METABOLIC ENCEPHALOPATHY Status: Resolved Comment: now stable baseline (2) Acute pulmonary embolism Code(s): I26.99 - OTHER PULMONARY EMBOLISM WITHOUT ACUTE COR PULMONALE Status : Acute Comment: (3) Seizure Code(s): R56.9 - UNSPECIFIED CONVULSIONS Status: Acute Comment: on Keppra (4) Symptomatic anemia Code(s): D64.9 - ANEMIA, UNSPECIFIED Status: Acute Comment: (5) Vaginal bleeding Code(s): N93.9 - ABNORMAL UTERINE AND VAGINAL BLEEDING, UNSPECIFIED Status: Acute Comment: intermittent (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 (7) Anemia of chronic disease Code(s): D63.8 - ANEMIA IN OTHER CHRONIC DISEASES CLASSIFIED ELSEWHERE Status : Chronic (8) Ascites Code(s): R18.8 - OTHER ASCITES Status: Chronic Qualifiers: Ascites type: malignant (9) Dyslipidemia Code(s): E78.5 - HYPERLIPIDEMIA, UNSPECIFIED Status: Chronic (10) H/O malignant neoplasm of uterine body Code(s): Z85.42 - PERSONAL HISTORY OF MALIGNANT NEOPLASM OF OTH PRT UTERUS Status: Chronic Comment: on chemotherapy (11) HTN (hypertension) Code(s): I10 - ESSENTIAL (PRIMARY) HYPERTENSION Status: Chronic Qualifiers: Hypertension type: essential hypertension Qualified Code(s): I10 - Essential (primary) hypertension (12) Anasarca Code(s): R60.1 - GENERALIZED EDEMA Status: Acute (13) DVT (deep venous thrombosis) Code(s): I82.409 - ACUTE EMBOLISM AND THOMBOS UNSP DEEP VN UNSP LOWER EXTREMITY Status: Acute Qualifiers: Affected thrombotic vein of extremity: femoral Laterality: left (14) Hypoalbuminemia Code(s): E88.09 - OTH DISORDERS OF PLASMA-PROTEIN METABOLISM, NEC Status: Acute (15) Hypotension Status: Acute (16) Pneumonia Code(s): J18.9 - PNEUMONIA, UNSPECIFIED ORGANISM Status: Suspected - Plan cont current plan of care, plan discussed w/ family, continue antibiotics, 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 Review of Systems - Review of Systems Other: not reliable with pt due to her cognitive status - Medications/Allergies Allergies/Adverse Reactions: Allergies Allergy/AdvReac Type Severity Reaction Status Date / Time No Known Drug Allergies Allergy Verified 08/09/17 16:23 Medications: Current Medications Acetaminophen (Tylenol) 650 mg PO Q4H PRN PRN Reason: Headache/Fever or Mild Pain Last Admin: 10/03/17 21:30 Dose: 650 mg Hydrocodone Bitart/Acetaminophen ([place] 5/325) 1 tab PO Q4H PRN PRN Reason: Moderate Pain (4-6) Last Admin: 10/05/17 05:40 Dose: 1 tab Al Hydroxide/Mg Hydroxide (Maalox) 15 ml PO Q4H PRN PRN Reason: Heartburn or Indigestion Artificial Tears (Tears Naturale) 0 drop EA EYE PRN PRN PRN Reason: Dry Eyes Cholecalciferol (Vitamin D3) 1,000 units PO DAILY [facility] Last Admin: 10/05/17 08:33 Dose: 1,000 units Ferrous Sulfate (Feosol) 325 mg PO BID-[facility] Last Admin: 10/05/17 08:34 Dose: 325 mg Guaifenesin (Robitussin Sf) 200 mg PO Q4H PRN PRN Reason: Cough Hydralazine HCl (Apresoline) 5 mg SLOW IVP Q6H PRN PRN Reason: SBP>180 Levetiracetam (Keppra) 500 mg PO BID [facility] Last Admin: 10/05/17 08:31 Dose: 500 mg Levofloxacin (Levaquin) 500 mg PO 0600 [facility] Last Admin: 10/05/17 05:40 Dose: 500 mg Loperamide HCl (Imodium) 2 mg PO PRN PRN PRN Reason: Diarrhea/Loose Stools Loratadine (Claritin) 10 mg PO DAILYPRN PRN PRN Reason: Sinus Symptoms Magnesium Hydroxide (Milk Of Magnesium) 30 ml PO DAILYPRN PRN PRN Reason: Constipation Last Admin: 10/04/17 23:18 Dose: 30 ml Mineral Oil/White Petrolatum (Eucerin Cream) 0 gm TOP BIDPRN PRN PRN Reason: Dry Skin Morphine Sulfate (Morphine) 3 mg SLOW IVP Q4H PRN PRN Reason: Pain Last Admin: 10/02/17 17:58 Dose: 3 mg Ondansetron HCl (Zofran Odt) 4 mg PO Q6H PRN PRN Reason: Nausea/Vomiting Ondansetron HCl (Zofran) 4 mg IVP Q6H PRN PRN Reason: Nausea/Vomiting Pantoprazole Sodium (Protonix) 40 mg PO DAILY [facility] Last Admin: 10/05/17 08:32 Dose: 40 mg Phenol (Chloraseptic [place] 180 Ml Bot) 0 ml PO PRN PRN PRN Reason: Sore Throat Senna (Senokot) 2 tab PO HSPRN PRN PRN Reason: Constipation Simvastatin (Zocor) 20 mg PO HS [facility] Last Admin: 10/04/17 21:14 Dose: 20 mg Sodium Chloride (Flush - Normal Saline) 10 ml IVF Q12HR [facility] Last Admin: 10/05/17 08:35 Dose: Not Given Sodium Chloride (Flush - Normal Saline) 10 ml IVF PRN PRN PRN Reason: Saline Flush Sodium Chloride ([place] Nasal [place] 0.65%) 0 ml EA NARE QIDPRN PRN PRN Reason: Nasal Congestion Zolpidem Tartrate (Ambien) 5 mg PO HSPRN PRN PRN Reason: Insomnia
[2017-10-05] MEDS: Simvastatin 20 MG TAB PO SCH (21:21)
[2017-10-06] MEDS: HYDROcodone/Acetaminophen 5/325 mg Tablet PO PRN (01:29)
[2017-10-06] MEDS: levETIRAcetam 500 MG TAB PO SCH ×2 (08:33→20:59)
[2017-10-06] MEDS: Ferrous Sulfate 325 MG TAB PO SCH ×2 (08:33→16:40)
--- NOTE | 2017-10-06 10:00 | PDOC.PN ---
- Subjective Encounter Start Date: 10/06/17 Encounter Start Time: 07:10 Patient seen and examined for anemia and PE. No new complaints. No overnight events - Objective Resuscitation Status: Resuscitation Status FULL:Full Resuscitation MAR Reviewed: Yes Vital Signs & Weight: Vital Signs (12 hours) Temp Pulse Resp BP Pulse Ox 10/06/17 03:46 97.3 F L 90 18 105/65 95 10/05/17 23:46 99.2 F 98 20 99/58 L 97 Weight Weight 160 lb 12.8 oz I&O: 10/05/17 10/06/17 10/07/17 06:59 06:59 06:59 Intake Total 500 220 Balance 500 220 Result Diagrams: 10/05/17 05:21 10/05/17 05:21 EKG Reviewed by me: Yes (nsr) Phys Exam - Physical Examination Constitutional: NAD HEENT: PERRLA, moist MMs, sclera anicteric Neck: no JVD, supple Respiratory: no wheezing, no rales, no rhonchi Cardiovascular: RRR, no significant murmur, no rub Gastrointestinal: soft, non-tender, no distention, positive bowel sounds Musculoskeletal: no edema, pulses present Neurological: moves all 4 limbs Lymphatic: no nodes Psychiatric: normal affect Skin: no rash, normal turgor Dx/Plan (1) Acute metabolic encephalopathy Code(s): G93.41 - METABOLIC ENCEPHALOPATHY Status: Resolved Comment: now stable baseline (2) Acute pulmonary embolism Code(s): I26.99 - OTHER PULMONARY EMBOLISM WITHOUT ACUTE COR PULMONALE Status : Acute Comment: (3) Seizure Code(s): R56.9 - UNSPECIFIED CONVULSIONS Status: Acute Comment: on [place] (4) Symptomatic anemia Code(s): D64.9 - ANEMIA, UNSPECIFIED Status: Acute Comment: (5) Vaginal bleeding Code(s): N93.9 - ABNORMAL UTERINE AND VAGINAL BLEEDING, UNSPECIFIED Status: Acute Comment: intermittent (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 (7) Anemia of chronic disease Code(s): D63.8 - ANEMIA IN OTHER CHRONIC DISEASES CLASSIFIED ELSEWHERE Status : Chronic (8) Ascites Code(s): R18.8 - OTHER ASCITES Status: Chronic Qualifiers: Ascites type: malignant (9) Dyslipidemia Code(s): E78.5 - HYPERLIPIDEMIA, UNSPECIFIED Status: Chronic (10) H/O malignant neoplasm of uterine body Code(s): Z85.42 - PERSONAL HISTORY OF MALIGNANT NEOPLASM OF OTH PRT UTERUS Status: Chronic Comment: on chemotherapy (11) HTN (hypertension) Code(s): I10 - ESSENTIAL (PRIMARY) HYPERTENSION Status: Chronic Qualifiers: Hypertension type: essential hypertension Qualified Code(s): I10 - Essential (primary) hypertension (12) Anasarca Code(s): R60.1 - GENERALIZED EDEMA Status: Acute (13) DVT (deep venous thrombosis) Code(s): I82.409 - ACUTE EMBOLISM AND THOMBOS UNSP DEEP VN UNSP LOWER EXTREMITY Status: Acute Qualifiers: Affected thrombotic vein of extremity: femoral Laterality: left (14) Hypoalbuminemia Code(s): E88.09 - OTH DISORDERS OF PLASMA-PROTEIN METABOLISM, NEC Status: Acute (15) Hypotension Status: Acute (16) Pneumonia Code(s): J18.9 - PNEUMONIA, UNSPECIFIED ORGANISM Status: Suspected - Plan cont current plan of care, 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 Review of Systems - Review of Systems Other: not reliable due to his level of cognitive status - Medications/Allergies Allergies/Adverse Reactions: Allergies Allergy/AdvReac Type Severity Reaction Status Date / Time No Known Drug Allergies Allergy Verified 08/09/17 16:23 Medications: Current Medications Acetaminophen (Tylenol) 650 mg PO Q4H PRN PRN Reason: Headache/Fever or Mild Pain Last Admin: 10/03/17 21:30 Dose: 650 mg Hydrocodone Bitart/Acetaminophen ([place] 5/325) 1 tab PO Q4H PRN PRN Reason: Moderate Pain (4-6) Last Admin: 10/06/17 01:29 Dose: 1 tab Al Hydroxide/Mg Hydroxide (Maalox) 15 ml PO Q4H PRN PRN Reason: Heartburn or Indigestion Artificial Tears (Tears Naturale) 0 drop EA EYE PRN PRN PRN Reason: Dry Eyes Cholecalciferol (Vitamin D3) 1,000 units PO DAILY [facility] Last Admin: 10/06/17 08:33 Dose: 1,000 units Ferrous Sulfate (Feosol) 325 mg PO BID-[facility] Last Admin: 10/06/17 08:33 Dose: 325 mg Guaifenesin (Robitussin Sf) 200 mg PO Q4H PRN PRN Reason: Cough Hydralazine HCl (Apresoline) 5 mg SLOW IVP Q6H PRN PRN Reason: SBP>180 Levetiracetam (Keppra) 500 mg PO BID [facility] Last Admin: 10/06/17 08:33 Dose: 500 mg Levofloxacin (Levaquin) 500 mg PO 0600 [facility] Last Admin: 10/06/17 05:45 Dose: 500 mg Loperamide HCl (Imodium) 2 mg PO PRN PRN PRN Reason: Diarrhea/Loose Stools Loratadine (Claritin) 10 mg PO DAILYPRN PRN PRN Reason: Sinus Symptoms Magnesium Hydroxide (Milk Of Magnesium) 30 ml PO DAILYPRN PRN PRN Reason: Constipation Last Admin: 10/04/17 23:18 Dose: 30 ml Mineral Oil/White Petrolatum (Eucerin Cream) 0 gm TOP BIDPRN PRN PRN Reason: Dry Skin Morphine Sulfate (Morphine) 3 mg SLOW IVP Q4H PRN PRN Reason: Pain Last Admin: 10/02/17 17:58 Dose: 3 mg Ondansetron HCl (Zofran Odt) 4 mg PO Q6H PRN PRN Reason: Nausea/Vomiting Ondansetron HCl (Zofran) 4 mg IVP Q6H PRN PRN Reason: Nausea/Vomiting Pantoprazole Sodium (Protonix) 40 mg PO DAILY [facility] Last Admin: 10/06/17 08:33 Dose: 40 mg Phenol (Chloraseptic [place] 180 Ml Bot) 0 ml PO PRN PRN PRN Reason: Sore Throat Senna (Senokot) 2 tab PO HSPRN PRN PRN Reason: Constipation Simvastatin (Zocor) 20 mg PO HS [facility] Last Admin: 10/05/17 21:21 Dose: 20 mg Sodium Chloride (Flush - Normal Saline) 10 ml IVF Q12HR [facility] Last Admin: 10/06/17 08:34 Dose: 10 ml Sodium Chloride (Flush - Normal Saline) 10 ml IVF PRN PRN PRN Reason: Saline Flush Sodium Chloride ([place] Nasal [place] 0.65%) 0 ml EA NARE QIDPRN PRN PRN Reason: Nasal Congestion Zolpidem Tartrate (Ambien) 5 mg PO HSPRN PRN PRN Reason: Insomnia
[2017-10-06] MEDS: Milk Of Magnesia 30 ML UDCUP PO PRN (16:48)
[2017-10-06] MEDS: Simvastatin 20 MG TAB PO SCH (20:59)
[2017-10-07 05:35] LABS: #Eosinphils 0.4 thou/uL (0.0-0.7); #Lymphocytes 1.5 thou/uL (1.20-3.40); #Monocytes 0.8 thou/uL (0.11-0.59); #Neutrophils 7.7 thou/uL (1.40-6.50); %Basophils 0.1 % (0.0-1.0); %Eosinophils 3.5 % (0.0-10.0); %Lymphocytes 14.6 % (21.0-51.0); %Monocytes 7.7 % (0.0-10.0); Hemoglobin 8.1 g/dL (12.0-16.0); Mean Corpuscular HGB CONC 32.3 g/dL (32.0-36.0); Mean Corpuscular Hemoglobin 28.1 pg (27.0-31.0); Mean Corpuscular Volume 87.1 fL (78.0-98.0); Mean Platelet Volume 7.2 fL (7.4-10.4); Platelet Count 321 thou/uL (130-400); RBC Distribution Width 19.2 % (11.5-14.5); Red Blood Cell (RBC) Count 2.86 mill/uL (4.20-5.40); White Blood Cell (WBC) Count 10.4 thou/uL (4.8-10.8)
[2017-10-07 05:56] LABS: Anion Gap 11 mmol/L (10-20); BUN (Urea Nitrogen) 6 mg/dL (9.8-20.1); Calc. Creatinine Clearance 75 mL/min (70-130); Calcium 8.6 mg/dL (7.8-10.44); Carbon Dioxide 29 mmol/L (23-31); Chloride 102 mmol/L (98-107); Estimated GFR-MDRD Greater than 90; Glucose 91 mg/dL (83-110); Potassium 4.2 mmol/L (3.5-5.1); Sodium 138 mmol/L (136-145)
[2017-10-07] MEDS: Ferrous Sulfate 325 MG TAB PO SCH ×2 (08:51→17:44)
[2017-10-07] MEDS: Cefdinir 300 MG CAP PO SCH ×2 (08:51→20:28)
[2017-10-07] MEDS: levETIRAcetam 500 MG TAB PO SCH ×2 (08:51→20:28)
--- NOTE | 2017-10-07 08:58 | PDOC.PN ---
- Subjective Encounter Start Date: 10/07/17 Encounter Start Time: 07:10 Patient seen and examined for DVT and PE. c/o nausea. No overnight events - Objective Resuscitation Status: Resuscitation Status FULL:Full Resuscitation MAR Reviewed: Yes Vital Signs & Weight: Vital Signs (12 hours) Temp Pulse Resp BP Pulse Ox 10/07/17 07:34 99.3 F 99 14 99/66 94 L 10/07/17 04:16 99.1 F 95 16 98/60 97 10/06/17 23:46 99.9 F H 98 16 119/68 95 Weight Weight 164 lb 9.6 oz I&O: 10/06/17 10/07/17 10/08/17 06:59 06:59 06:59 Intake Total 220 940 Balance 220 940 Result Diagrams: 10/07/17 04:49 10/07/17 04:49 EKG Reviewed by me: Yes (nsr) Phys Exam - Physical Examination Constitutional: NAD HEENT: PERRLA, moist MMs, sclera anicteric Neck: no JVD, supple Respiratory: no wheezing, no rales, no rhonchi Cardiovascular: RRR, no significant murmur, no rub Gastrointestinal: soft, non-tender, no distention, positive bowel sounds Musculoskeletal: no edema, pulses present Neurological: non-focal, normal sensation Lymphatic: no nodes Psychiatric: normal affect Skin: no rash, normal turgor Dx/Plan (1) Acute metabolic encephalopathy Code(s): G93.41 - METABOLIC ENCEPHALOPATHY Status: Resolved Comment: now stable baseline (2) Acute pulmonary embolism Code(s): I26.99 - OTHER PULMONARY EMBOLISM WITHOUT ACUTE COR PULMONALE Status : Acute Comment: (3) Seizure Code(s): R56.9 - UNSPECIFIED CONVULSIONS Status: Acute Comment: on Keppra (4) Symptomatic anemia Code(s): D64.9 - ANEMIA, UNSPECIFIED Status: Acute Comment: (5) Vaginal bleeding Code(s): N93.9 - ABNORMAL UTERINE AND VAGINAL BLEEDING, UNSPECIFIED Status: Acute Comment: intermittent (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 (7) Anemia of chronic disease Code(s): D63.8 - ANEMIA IN OTHER CHRONIC DISEASES CLASSIFIED ELSEWHERE Status : Chronic (8) Ascites Code(s): R18.8 - OTHER ASCITES Status: Chronic Qualifiers: Ascites type: malignant (9) Dyslipidemia Code(s): E78.5 - HYPERLIPIDEMIA, UNSPECIFIED Status: Chronic (10) H/O malignant neoplasm of uterine body Code(s): Z85.42 - PERSONAL HISTORY OF MALIGNANT NEOPLASM OF OTH PRT UTERUS Status: Chronic Comment: on chemotherapy (11) HTN (hypertension) Code(s): I10 - ESSENTIAL (PRIMARY) HYPERTENSION Status: Chronic Qualifiers: Hypertension type: essential hypertension Qualified Code(s): I10 - Essential (primary) hypertension (12) Anasarca Code(s): R60.1 - GENERALIZED EDEMA Status: Acute (13) DVT (deep venous thrombosis) Code(s): I82.409 - ACUTE EMBOLISM AND THOMBOS UNSP DEEP VN UNSP LOWER EXTREMITY Status: Acute Qualifiers: Affected thrombotic vein of extremity: femoral Laterality: left (14) Hypoalbuminemia Code(s): E88.09 - OTH DISORDERS OF PLASMA-PROTEIN METABOLISM, NEC Status: Acute (15) Hypotension Status: Acute (16) Pneumonia Code(s): J18.9 - PNEUMONIA, UNSPECIFIED ORGANISM Status: Suspected - Plan cont current plan of care, plan discussed w/ family, continue antibiotics, 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 Review of Systems - Review of Systems Eyes: negative: Pain, Vision Change, Conjunctivae Inflammation, Eyelid Inflammation, Redness, Other ENT: negative: Ear Pain, Ear Discharge, Nose Pain, Nose Discharge, Nose Congestion, Mouth Pain, Mouth Swelling, Throat Pain, Throat Swelling, Other Respiratory: negative: Cough, Dry, Shortness of Breath, Hemoptysis, SOB with Excertion, Pleuritic Pain, Sputum, Wheezing Cardiovascular: negative: chest pain, palpitations, orthopnea, paroxysmal nocturnal dyspnea, edema, light headedness, other Gastrointestinal: Nausea. negative: Vomiting, Abdominal Pain, Diarrhea, Constipation, Melena, Hematochezia, Other Genitourinary: negative: Dysuria, Frequency, Incontinence, Hematuria, Retention , Other Musculoskeletal: negative: Neck Pain, Shoulder Pain, Arm Pain, Back Pain, Hand Pain, Leg Pain, Foot Pain, Other Skin: negative: Rash, Lesions, Darian, Bruising, Other - Medications/Allergies Allergies/Adverse Reactions: Allergies Allergy/AdvReac Type Severity Reaction Status Date / Time No Known Drug Allergies Allergy Verified 08/09/17 16:23 Medications: Current Medications Acetaminophen (Tylenol) 650 mg PO Q4H PRN PRN Reason: Headache/Fever or Mild Pain Last Admin: 10/03/17 21:30 Dose: 650 mg Hydrocodone Bitart/Acetaminophen ([place] 5/325) 1 tab PO Q4H PRN PRN Reason: Moderate Pain (4-6) Last Admin: 10/06/17 01:29 Dose: 1 tab Al Hydroxide/Mg Hydroxide (Maalox) 15 ml PO Q4H PRN PRN Reason: Heartburn or Indigestion Artificial Tears (Tears Naturale) 0 drop EA EYE PRN PRN PRN Reason: Dry Eyes Cefdinir (Omnicef) 300 mg PO BID ON LICENSE OF [facility] Last Admin: 10/07/17 08:51 Dose: 300 mg Cholecalciferol (Vitamin D3) 1,000 units PO DAILY ON LICENSE OF [facility] Last Admin: 10/07/17 08:51 Dose: 1,000 units Ferrous Sulfate (Feosol) 325 mg PO BID-[facility] Last Admin: 10/07/17 08:51 Dose: 325 mg Guaifenesin (Robitussin Sf) 200 mg PO Q4H PRN PRN Reason: Cough Hydralazine HCl (Apresoline) 5 mg SLOW IVP Q6H PRN PRN Reason: SBP>180 Levetiracetam (Keppra) 500 mg PO BID ON LICENSE OF [facility] Last Admin: 10/07/17 08:51 Dose: 500 mg Loperamide HCl (Imodium) 2 mg PO PRN PRN PRN Reason: Diarrhea/Loose Stools Loratadine (Claritin) 10 mg PO DAILYPRN PRN PRN Reason: Sinus Symptoms Magnesium Hydroxide (Milk Of Magnesium) 30 ml PO DAILYPRN PRN PRN Reason: Constipation Last Admin: 10/06/17 16:48 Dose: 30 ml Mineral Oil/White Petrolatum (Eucerin Cream) 0 gm TOP BIDPRN PRN PRN Reason: Dry Skin Morphine Sulfate (Morphine) 3 mg SLOW IVP Q4H PRN PRN Reason: Pain Last Admin: 10/02/17 17:58 Dose: 3 mg Ondansetron HCl (Zofran Odt) 4 mg PO Q6H PRN PRN Reason: Nausea/Vomiting Ondansetron HCl (Zofran) 4 mg IVP Q6H PRN PRN Reason: Nausea/Vomiting Pantoprazole Sodium (Protonix) 40 mg PO DAILY ON LICENSE OF [facility] Last Admin: 10/07/17 08:50 Dose: 40 mg Phenol (Chloraseptic [place] 180 Ml Bot) 0 ml PO PRN PRN PRN Reason: Sore Throat Senna (Senokot) 2 tab PO HSPRN PRN PRN Reason: Constipation Simvastatin (Zocor) 20 mg PO HS ON LICENSE OF [facility] Last Admin: 10/06/17 20:59 Dose: 20 mg Sodium Chloride (Flush - Normal Saline) 10 ml IVF Q12HR ON LICENSE OF [facility] Last Admin: 10/07/17 08:51 Dose: 10 ml Sodium Chloride (Flush - Normal Saline) 10 ml IVF PRN PRN PRN Reason: Saline Flush Sodium Chloride ([place] Nasal [place] 0.65%) 0 ml EA NARE QIDPRN PRN PRN Reason: Nasal Congestion Zolpidem Tartrate (Ambien) 5 mg PO HSPRN PRN PRN Reason: Insomnia
[2017-10-07] MEDS: Simvastatin 20 MG TAB PO SCH (20:28)
[2017-10-08] MEDS: levETIRAcetam 500 MG TAB PO SCH ×2 (08:13→21:05)
[2017-10-08] MEDS: Ferrous Sulfate 325 MG TAB PO SCH ×2 (08:13→15:59)
[2017-10-08] MEDS: Cefdinir 300 MG CAP PO SCH ×2 (08:13→21:05)
--- NOTE | 2017-10-08 10:33 | PDOC.PN ---
- Subjective Encounter Start Date: 10/08/17 Encounter Start Time: 07:10 Patient seen and examined. No new complaints. No overnight events - Objective Resuscitation Status: Resuscitation Status FULL:Full Resuscitation MAR Reviewed: Yes Vital Signs & Weight: Vital Signs (12 hours) Temp Pulse Resp BP Pulse Ox 10/08/17 08:11 97.9 F 95 16 101/64 10/08/17 08:00 97.9 F 95 16 10/08/17 04:00 98.0 F 94 16 117/69 95 10/08/17 00:16 99.9 F H 101 H 20 94/54 L 92 L Weight Weight 164 lb 1.6 oz I&O: 10/07/17 10/08/17 10/09/17 06:59 06:59 06:59 Intake Total 940 750 Balance 940 750 Result Diagrams: 10/07/17 04:49 10/07/17 04:49 EKG Reviewed by me: Yes (nsr) Phys Exam - Physical Examination Constitutional: NAD HEENT: PERRLA, moist MMs, sclera anicteric Neck: no JVD, supple Respiratory: no wheezing, no rales, no rhonchi Cardiovascular: RRR, no significant murmur, no rub Gastrointestinal: soft, non-tender, no distention, positive bowel sounds Musculoskeletal: no edema, pulses present Neurological: non-focal, normal sensation, moves all 4 limbs Psychiatric: normal affect, A&O x 3 Skin: no rash, normal turgor Dx/Plan (1) Acute metabolic encephalopathy Code(s): G93.41 - METABOLIC ENCEPHALOPATHY Status: Resolved Comment: now stable baseline (2) Acute pulmonary embolism Code(s): I26.99 - OTHER PULMONARY EMBOLISM WITHOUT ACUTE COR PULMONALE Status : Acute Comment: (3) Seizure Code(s): R56.9 - UNSPECIFIED CONVULSIONS Status: Acute Comment: on Keppra (4) Symptomatic anemia Code(s): D64.9 - ANEMIA, UNSPECIFIED Status: Acute Comment: (5) Vaginal bleeding Code(s): N93.9 - ABNORMAL UTERINE AND VAGINAL BLEEDING, UNSPECIFIED Status: Acute Comment: intermittent (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 (7) Anemia of chronic disease Code(s): D63.8 - ANEMIA IN OTHER CHRONIC DISEASES CLASSIFIED ELSEWHERE Status : Chronic (8) Ascites Code(s): R18.8 - OTHER ASCITES Status: Chronic Qualifiers: Ascites type: malignant (9) Dyslipidemia Code(s): E78.5 - HYPERLIPIDEMIA, UNSPECIFIED Status: Chronic (10) H/O malignant neoplasm of uterine body Code(s): Z85.42 - PERSONAL HISTORY OF MALIGNANT NEOPLASM OF OTH PRT UTERUS Status: Chronic Comment: on chemotherapy (11) HTN (hypertension) Code(s): I10 - ESSENTIAL (PRIMARY) HYPERTENSION Status: Chronic Qualifiers: Hypertension type: essential hypertension Qualified Code(s): I10 - Essential (primary) hypertension (12) Anasarca Code(s): R60.1 - GENERALIZED EDEMA Status: Acute (13) DVT (deep venous thrombosis) Code(s): I82.409 - ACUTE EMBOLISM AND THOMBOS UNSP DEEP VN UNSP LOWER EXTREMITY Status: Acute Qualifiers: Affected thrombotic vein of extremity: femoral Laterality: left (14) Hypoalbuminemia Code(s): E88.09 - OTH DISORDERS OF PLASMA-PROTEIN METABOLISM, NEC Status: Acute (15) Hypotension Status: Acute (16) Pneumonia Code(s): J18.9 - PNEUMONIA, UNSPECIFIED ORGANISM Status: Suspected - Plan cont current plan of care, 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 Review of Systems - Review of Systems ENT: negative: Ear Pain, Ear Discharge, Nose Pain, Nose Discharge, Nose Congestion, Mouth Pain, Mouth Swelling, Throat Pain, Throat Swelling, Other Respiratory: negative: Cough, Dry, Shortness of Breath, Hemoptysis, SOB with Excertion, Pleuritic Pain, Sputum, Wheezing Cardiovascular: negative: chest pain, palpitations, orthopnea, paroxysmal nocturnal dyspnea, edema, light headedness, other Gastrointestinal: negative: Nausea, Vomiting, Abdominal Pain, Diarrhea, Constipation, Melena, Hematochezia, Other Genitourinary: negative: Dysuria, Frequency, Incontinence, Hematuria, Retention , Other Musculoskeletal: negative: Neck Pain, Shoulder Pain, Arm Pain, Back Pain, Hand Pain, Leg Pain, Foot Pain, Other - Medications/Allergies Allergies/Adverse Reactions: Allergies Allergy/AdvReac Type Severity Reaction Status Date / Time No Known Drug Allergies Allergy Verified 08/09/17 16:23 Medications: Current Medications Acetaminophen (Tylenol) 650 mg PO Q4H PRN PRN Reason: Headache/Fever or Mild Pain Last Admin: 10/03/17 21:30 Dose: 650 mg Hydrocodone Bitart/Acetaminophen ([place] 5/325) 1 tab PO Q4H PRN PRN Reason: Moderate Pain (4-6) Last Admin: 10/06/17 01:29 Dose: 1 tab Al Hydroxide/Mg Hydroxide (Maalox) 15 ml PO Q4H PRN PRN Reason: Heartburn or Indigestion Artificial Tears (Tears Naturale) 0 drop EA EYE PRN PRN PRN Reason: Dry Eyes Cefdinir (Omnicef) 300 mg PO BID PENDING SALE TO [facility] Last Admin: 10/08/17 08:13 Dose: 300 mg Cholecalciferol (Vitamin D3) 1,000 units PO DAILY PENDING SALE TO [facility] Last Admin: 10/08/17 08:14 Dose: 1,000 units Ferrous Sulfate (Feosol) 325 mg PO BID-[facility] Last Admin: 10/08/17 08:13 Dose: 325 mg Guaifenesin (Robitussin Sf) 200 mg PO Q4H PRN PRN Reason: Cough Hydralazine HCl (Apresoline) 5 mg SLOW IVP Q6H PRN PRN Reason: SBP>180 Levetiracetam (Keppra) 500 mg PO BID PENDING SALE TO [facility] Last Admin: 10/08/17 08:13 Dose: 500 mg Loperamide HCl (Imodium) 2 mg PO PRN PRN PRN Reason: Diarrhea/Loose Stools Loratadine (Claritin) 10 mg PO DAILYPRN PRN PRN Reason: Sinus Symptoms Magnesium Hydroxide (Milk Of Magnesium) 30 ml PO DAILYPRN PRN PRN Reason: Constipation Last Admin: 10/06/17 16:48 Dose: 30 ml Mineral Oil/White Petrolatum (Eucerin Cream) 0 gm TOP BIDPRN PRN PRN Reason: Dry Skin Morphine Sulfate (Morphine) 3 mg SLOW IVP Q4H PRN PRN Reason: Pain Last Admin: 10/02/17 17:58 Dose: 3 mg Ondansetron HCl (Zofran Odt) 4 mg PO Q6H PRN PRN Reason: Nausea/Vomiting Ondansetron HCl (Zofran) 4 mg IVP Q6H PRN PRN Reason: Nausea/Vomiting Pantoprazole Sodium (Protonix) 40 mg PO DAILY PENDING SALE TO [facility] Last Admin: 10/08/17 08:14 Dose: 40 mg Phenol (Chloraseptic Drain 180 Ml Bot) 0 ml PO PRN PRN PRN Reason: Sore Throat Senna (Senokot) 2 tab PO HSPRN PRN PRN Reason: Constipation Simvastatin (Zocor) 20 mg PO HS PENDING SALE TO [facility] Last Admin: 10/07/17 20:28 Dose: 20 mg Sodium Chloride (Flush - Normal Saline) 10 ml IVF Q12HR PENDING SALE TO [facility] Last Admin: 10/08/17 08:14 Dose: 10 ml Sodium Chloride (Flush - Normal Saline) 10 ml IVF PRN PRN PRN Reason: Saline Flush Sodium Chloride ([place] Nasal Drain 0.65%) 0 ml EA NARE QIDPRN PRN PRN Reason: Nasal Congestion Zolpidem Tartrate (Ambien) 5 mg PO HSPRN PRN PRN Reason: Insomnia
--- NOTE | 2017-10-08 15:59 | CON ---
DATE OF CONSULTATION: 10/08/2017 REASON FOR CONSULTATION: Ms. Winkler is a 77-year-old female, who I have been asked to see for conside ration of radiation therapy for her vaginal bleeding. She has a long history of stage IV endometrial cancer. PLAN: I do not have any source documents detailing her endometrial cancer. Apparently, she was diag nosed with stage IV endometrial cancer a little more than a year ago. She apparently has had maligna nt ascites as well as malignant pleural effusion. She has had multiple paracentesis in the past. Nubia ross did get chemotherapy with Dr. Webber until no further options were available. She then saw an onc ologist in [place] and has been more recently been getting chemotherapy in [place]. Several weeks ago, she was to be going to [place] for her next cycle of chemotherapy, which apparently is with Avastin a nd doxorubicin. However, she had mental status changes and was admitted to the hospital on 8 for workup and evaluation. The exact reason for her mental status changes are not clear to me. On workup, she had a negative CT scan of the head as well as a negative MRI of the brain. She did have a CT of the chest, abdomen, and pelvis. This confirmed pulmonary emboli. This also showed her pleu ral effusion and anasarca. The uterine mass had enlarged. She had some pelvic and inguinal lymph no negra. She had small amount of ascites. She had clots in the femoral veins. Anticoagulation was atte mpted. Apparently vaginal bleeding worsened. The anticoagulation has been discontinued for now. He r vaginal bleeding has slowed up significantly. Her mental status has improved. However, she remain s confined to the bed. She is to see Cardiothoracic Surgery for possible consideration of an IVC amanda ter. I was asked to see her to see if there are any options from a radiation perspective to help wit h the vaginal bleeding. Presently, she denies any nausea or vomiting or diarrhea. She also has no pain. She voices no other complaints. PAST MEDICAL HISTORY: 1. Stage IV endometrial cancer with history of malignant ascites and malignant pleural effusion. 2. Hypertension. 3. GE reflux disease. 4. Hypercholesterolemia. 5. Status post MediPort placement. MEDICATIONS: Keppra, Omnicef, vitamin D3, iron, Protonix, and Zocor. At home, she was taking metopr olol, Lasix, and oxybutynin. ALLERGIES: No known medical allergies. SOCIAL HISTORY: She lives with her daughter, who has a power of employee benefits attorney. 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 She has no cigarette or alcohol use. FAMILY HISTORY: Her mother at age 89 from coronary artery disease. Her father at age 99. She had a sister with kidney cancer. There is no family history of endometrial cancer. REVIEW OF SYSTEMS: Twelve-system review of systems is otherwise negative. PHYSICAL EXAMINATION: VITAL SIGNS: Height: 5 feet 6 inches, weight 164 pounds, blood pressure is 93/60, pulse is 94, resp irations are 16, temperature 98.0, and O2 saturation is 98%. GENERAL: She is alert and oriented to person, place, time, and situation. She appears to be confine d to the bed. Karnofsky performance status is 30%. EYES: Pupils equal, round, reactive to light. Extraocular movements are intact. ENT: Oral cavity and oropharynx normal without lesion or erythema. Palate elevates symmetrically. Gingiva is intact. NECK: Supple, without cervical or supraclavicular adenopathy. No thyromegaly. LUNGS: Clear to auscultation except in the bases. Breathing is nonlabored. HEART: Regular rate and rhythm without murmur. She does have bilateral pedal edema. LYMPHATIC: No axillary or inguinal adenopathy. ABDOMEN: Reveals a palpable mass just below the umbilicus. Otherwise, soft, nontender, nondistended , without rebound or guarding. Bowel sounds present. SKIN: Without rash or purpura. NEUROLOGIC: Cranial nerves II-XII grossly intact. Motor strength is 4/5 in both upper and lower ext remities in all muscle groups tested. She is not ambulatory. LABORATORY DATA: CBC today revealed a white blood cell count 10,400 with a hemoglobin of 8.1, hemato crit 25.0, platelet count 321,000. Chemistry group showed normal electrolytes. Creatinine was 0.72 with a GFR greater than 90. Last total protein was 5.9 with an albumin of 2.8. RADIOLOGIC: CT scan of the head and MRI of the brain were both personally reviewed. This showed no evidence of brain metastasis. CT of the chest, abdomen, and pelvis was also personally reviewed. Th is did show pulmonary emboli. There was generalized anasarca. She did have a pleural effusion, left worse than right. She had an enlarged uterine mass, which was larger than it was 2 months ago. The re was some inguinal and pelvic adenopathy with lymph nodes measuring about 1 cm in size. She did guerrero ve clots in her femoral veins. ASSESSMENT: Ms. Winkler is a 77-year-old female with a clinical history of a stage IV, endometrial can cer. Her performance status is quite poor at the present, although prior to admission. She was full y ambulatory. Her problem is that she is having vaginal bleeding, which is precluding the use of ant icoagulants for her blood clots. Her endometrial cancer is not a curative. PLAN: I had a long discussion with Ms. Winkler and her daughter regarding her diagnosis, prognosis, pr ognostic factors, and treatment options. Her prognosis is quite poor and her disease is not curable. She remains confined to the bed, although several weeks ago. She apparently was fully ambulatory. Consideration is being given the physical therapy. Her biggest difficulty is of her continued vagin al bleeding, which is not allowing adequate treatment of her pulmonary emboli and blood clots. Possi nadine she may improve and be able to become ambulatory if her pulmonary emboli and blood clots could be treated. Consideration is being given to an IVC filter and Cardiothoracic Surgery is going to see h er. From a radiation perspective, we could give her a single fraction radiation treatment to the [facility] to hopefully minimize and stop the vaginal bleeding. This will not stop the vaginal bleeding. r ight away, but may stop it over a several week time frame. Hopefully, this will control her vaginal bleeding for the rest of her remaining life. This may allow her to be anticoagulated and improve her performance status. The logistics of radiation as well as the benefits and risks of treatment were discussed with the patient and her daughter. The simulation procedure was discussed in depth. Side effects would include but not be limited to nausea, vomiting, diarrhea, skin reaction, fatigue, and p ossible damage to her intestines or other structures, which receive radiation therapy. She is tentat ively agreeable to proceed with a single fraction radiation therapy. I have discussed the case with Dr. Zavala, her hospitalist. We are awaiting a decision regarding the inferior vena cava filter sharona cement. Hopefully, we can work around when that is placed if it is done and potentially get her dakotah jackie later this week with her single fraction treatment.
[2017-10-08] MEDS: Simvastatin 20 MG TAB PO SCH (21:05)
--- NOTE | 2017-10-08 23:11 | CON ---
DATE OF CONSULTATION: 10/08/2017 REQUESTING PHYSICIAN: Dr. Zavala. CHIEF COMPLAINT: Altered mental status. HISTORY OF PRESENT ILLNESS: The patient is a 77-year-old woman with extensive endometrial carcinoma including carcinomatosis, having undergone multiple paracenteses. She had formally been taken care o f here and has switched oncologists to 1 in [place], and was due for a checkup there when she was brou [facility] here, at the suggestion of her [place] oncologist, because of concerns about an altered mental sta tus. The patient had a fairly unremarkable head CT and her mental status seems to have cleared since then. CT scanning that was done as part of that evaluation showed no evidence of stroke, but there was a coincidental finding of a filling defect in the right pulmonary artery consistent with thromboe mbolism. The patient does have nonocclusive DVTs in both legs and a trial of anticoagulation was giv en that resulted in vaginal bleeding, presumably due to her endometrial cancer. The advanced stage o f her disease and her grim prognosis has made other caregivers question the utility or futility of ve na caval filtration, even though on the surface, she would seem to meet criteria. PAST MEDICAL HISTORY: Most significant for her stage 4 endometrial cancer with malignant ascites and malignant pleural effusions. She also has hypertension, GE reflux disease, dyslipidemia. HOME MEDICATIONS: Her list is Toprol, Lasix, Decadron, oxybutynin, simvastatin, potassium, omeprazol e, Keppra, Protonix, ferrous sulfate, Omnicef, multivitamins. An attempt had been made to anticoagul ate her, which has since been abandoned. ALLERGIES: She denies any medical allergies. REVIEW OF SYSTEMS: Most notable for her debilitation. PHYSICAL EXAMINATION: GENERAL: She is a pleasant elderly woman in bed. VITAL SIGNS: Heart rate is around 100, blood pressure 116/70, temperature 98.7, room air O2 sats are 96%-98%. LUNGS: She has clear breath sounds. CARDIOVASCULAR: Regular rate and rhythm. ABDOMEN: Nontender. IMAGING: Her CT scans show a filling defect in the right pulmonary artery consistent with embolism. She has bilateral pleural effusions, probably greater on the left than on the right. She has some s treaky infiltrates in her left lung, primarily on her CAT scan that may very well represent compressi ve atelectasis, large uterine mass, and right adrenal nodule with the uterine mass measuring approxim ately 13 cm in size. IMPRESSION AND RECOMMENDATIONS: This patient has had an incidental finding basically of pulmonary em bolism. It is a fairly convincing picture on her CAT scans and she has deep vein thromboses and she has demonstrated a poor tolerance of anticoagulation. There is talk in the chart of palliative radio therapy being able to help address bleeding from her cancer to allow for anticoagulation. On the who le, it strikes me that this is apt to be an active futility and subjecting her to IVC filtration will be subjecting her to the potential complications like perforation, migration, or vena caval thrombos is with a little real impact on her longevity or quality of life.
[2017-10-09] MEDS: Cefdinir 300 MG CAP PO SCH ×2 (09:12→20:31)
[2017-10-09] MEDS: levETIRAcetam 500 MG TAB PO SCH ×2 (09:12→20:31)
[2017-10-09] MEDS: Ferrous Sulfate 325 MG TAB PO SCH ×2 (09:12→17:06)
[2017-10-09] MEDS: Senokot 8.6 MG TAB PO PRN (09:32)
--- NOTE | 2017-10-09 10:23 | PDOC.PN ---
- Subjective Encounter Start Date: 10/09/17 Encounter Start Time: 07:00 Patient seen and examined for dvt and PE. No new complaints. No overnight events - Objective Resuscitation Status: Resuscitation Status FULL:Full Resuscitation MAR Reviewed: Yes Vital Signs & Weight: Vital Signs (12 hours) Temp Pulse Resp BP Pulse Ox 10/09/17 07:53 99.7 F H 98 14 103/68 97 10/09/17 04:00 98.8 F 100 16 105/69 92 L 10/09/17 00:00 97.4 F L 95 16 119/63 93 L Weight Admit Weight 177 lb 4.8 oz Weight 162 lb 8 oz I&O: 10/08/17 10/09/17 10/10/17 06:59 06:59 06:59 Intake Total 750 400 Balance 750 400 Result Diagrams: 10/07/17 04:49 10/07/17 04:49 EKG Reviewed by me: Yes (nsr) Phys Exam - Physical Examination Constitutional: NAD HEENT: PERRLA, moist MMs, sclera anicteric Neck: no JVD, supple Respiratory: no wheezing, no rales, no rhonchi Cardiovascular: RRR, no significant murmur, no rub Gastrointestinal: soft, non-tender, no distention, positive bowel sounds Musculoskeletal: no edema, pulses present Neurological: non-focal, normal sensation Lymphatic: no nodes Psychiatric: normal affect Skin: no rash, normal turgor Dx/Plan (1) Acute metabolic encephalopathy Code(s): G93.41 - METABOLIC ENCEPHALOPATHY Status: Resolved Comment: now stable baseline (2) Acute pulmonary embolism Code(s): I26.99 - OTHER PULMONARY EMBOLISM WITHOUT ACUTE COR PULMONALE Status : Acute Comment: (3) Seizure Code(s): R56.9 - UNSPECIFIED CONVULSIONS Status: Acute Comment: on Keppra (4) Symptomatic anemia Code(s): D64.9 - ANEMIA, UNSPECIFIED Status: Acute Comment: (5) Vaginal bleeding Code(s): N93.9 - ABNORMAL UTERINE AND VAGINAL BLEEDING, UNSPECIFIED Status: Acute Comment: intermittent (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 (7) Anemia of chronic disease Code(s): D63.8 - ANEMIA IN OTHER CHRONIC DISEASES CLASSIFIED ELSEWHERE Status : Chronic (8) Ascites Code(s): R18.8 - OTHER ASCITES Status: Chronic Qualifiers: Ascites type: malignant (9) Dyslipidemia Code(s): E78.5 - HYPERLIPIDEMIA, UNSPECIFIED Status: Chronic (10) H/O malignant neoplasm of uterine body Code(s): Z85.42 - PERSONAL HISTORY OF MALIGNANT NEOPLASM OF OTH PRT UTERUS Status: Chronic Comment: on chemotherapy (11) HTN (hypertension) Code(s): I10 - ESSENTIAL (PRIMARY) HYPERTENSION Status: Chronic Qualifiers: Hypertension type: essential hypertension Qualified Code(s): I10 - Essential (primary) hypertension (12) Anasarca Code(s): R60.1 - GENERALIZED EDEMA Status: Acute (13) DVT (deep venous thrombosis) Code(s): I82.409 - ACUTE EMBOLISM AND THOMBOS UNSP DEEP VN UNSP LOWER EXTREMITY Status: Acute Qualifiers: Affected thrombotic vein of extremity: femoral Laterality: left (14) Hypoalbuminemia Code(s): E88.09 - OTH DISORDERS OF PLASMA-PROTEIN METABOLISM, NEC Status: Acute (15) Hypotension Status: Acute (16) Pneumonia Code(s): J18.9 - PNEUMONIA, UNSPECIFIED ORGANISM Status: Suspected - Plan cont current plan of care, plan discussed w/ family, continue antibiotics, PT/OT , social service coordinator * I spoke with Dr Linares, he may try to do radiation marking today or tomorrow, but actual radiation will be given on Saturday * if we discharge then, bringing her back to radiation would be challenge * home hospice arrangement needs to be done as well * anticoagulant therapy once vaginal bleeding stops after radiation therapy as an outpt basis * medication reviewed as below * symptomatic treatment Review of Systems - Review of Systems Constitutional: weakness. negative: fever, chills, sweats, malaise, other Eyes: negative: Pain, Vision Change, Conjunctivae Inflammation, Eyelid Inflammation, Redness, Other ENT: negative: Ear Pain, Ear Discharge, Nose Pain, Nose Discharge, Nose Congestion, Mouth Pain, Mouth Swelling, Throat Pain, Throat Swelling, Other Respiratory: negative: Cough, Dry, Shortness of Breath, Hemoptysis, SOB with Excertion, Pleuritic Pain, Sputum, Wheezing Cardiovascular: negative: chest pain, palpitations, orthopnea, paroxysmal nocturnal dyspnea, edema, light headedness, other Gastrointestinal: negative: Nausea, Vomiting, Abdominal Pain, Diarrhea, Constipation, Melena, Hematochezia, Other Genitourinary: negative: Dysuria, Frequency, Incontinence, Hematuria, Retention , Other Musculoskeletal: negative: Neck Pain, Shoulder Pain, Arm Pain, Back Pain, Hand Pain, Leg Pain, Foot Pain, Other Skin: negative: Rash, Lesions, Darian, Bruising, Other - Medications/Allergies Allergies/Adverse Reactions: Allergies Allergy/AdvReac Type Severity Reaction Status Date / Time No Known Drug Allergies Allergy Verified 08/09/17 16:23 Medications: Current Medications Acetaminophen (Tylenol) 650 mg PO Q4H PRN PRN Reason: Headache/Fever or Mild Pain Last Admin: 10/03/17 21:30 Dose: 650 mg Hydrocodone Bitart/Acetaminophen ([place] 5/325) 1 tab PO Q4H PRN PRN Reason: Moderate Pain (4-6) Last Admin: 10/06/17 01:29 Dose: 1 tab Al Hydroxide/Mg Hydroxide (Maalox) 15 ml PO Q4H PRN PRN Reason: Heartburn or Indigestion Artificial Tears (Tears Naturale) 0 drop EA EYE PRN PRN PRN Reason: Dry Eyes Cefdinir (Omnicef) 300 mg PO BID [facility] Last Admin: 10/09/17 09:12 Dose: 300 mg Cholecalciferol (Vitamin D3) 1,000 units PO DAILY [facility] Last Admin: 10/09/17 09:12 Dose: 1,000 units Ferrous Sulfate (Feosol) 325 mg PO BID[facility] Last Admin: 10/09/17 09:12 Dose: 325 mg Guaifenesin (Robitussin Sf) 200 mg PO Q4H PRN PRN Reason: Cough Hydralazine HCl (Apresoline) 5 mg SLOW IVP Q6H PRN PRN Reason: SBP>180 Levetiracetam (Keppra) 500 mg PO BID [facility] Last Admin: 10/09/17 09:12 Dose: 500 mg Loperamide HCl (Imodium) 2 mg PO PRN PRN PRN Reason: Diarrhea/Loose Stools Loratadine (Claritin) 10 mg PO DAILYPRN PRN PRN Reason: Sinus Symptoms Magnesium Hydroxide (Milk Of Magnesium) 30 ml PO DAILYPRN PRN PRN Reason: Constipation Last Admin: 10/06/17 16:48 Dose: 30 ml Mineral Oil/White Petrolatum (Eucerin Cream) 0 gm TOP BIDPRN PRN PRN Reason: Dry Skin Morphine Sulfate (Morphine) 3 mg SLOW IVP Q4H PRN PRN Reason: Pain Last Admin: 10/02/17 17:58 Dose: 3 mg Ondansetron HCl (Zofran Odt) 4 mg PO Q6H PRN PRN Reason: Nausea/Vomiting Ondansetron HCl (Zofran) 4 mg IVP Q6H PRN PRN Reason: Nausea/Vomiting Pantoprazole Sodium (Protonix) 40 mg PO DAILY [facility] Last Admin: 10/09/17 09:12 Dose: 40 mg Phenol (Chloraseptic [place] 180 Ml Bot) 0 ml PO PRN PRN PRN Reason: Sore Throat Senna (Senokot) 2 tab PO HSPRN PRN PRN Reason: Constipation Last Admin: 10/09/17 09:32 Dose: 2 tab Simvastatin (Zocor) 20 mg PO HS [facility] Last Admin: 10/08/17 21:05 Dose: 20 mg Sodium Chloride (Flush - Normal Saline) 10 ml IVF Q12HR [facility] Last Admin: 10/09/17 09:34 Dose: 10 ml Sodium Chloride (Flush - Normal Saline) 10 ml IVF PRN PRN PRN Reason: Saline Flush Sodium Chloride ([place] Nasal [place] 0.65%) 0 ml EA NARE QIDPRN PRN PRN Reason: Nasal Congestion Zolpidem Tartrate (Ambien) 5 mg PO HSPRN PRN PRN Reason: Insomnia
[2017-10-09] MEDS: HYDROcodone/Acetaminophen 5/325 mg Tablet PO PRN (17:05)
[2017-10-09] MEDS: Milk Of Magnesia 30 ML UDCUP PO PRN (17:05)
[2017-10-09] MEDS: Simvastatin 20 MG TAB PO SCH (20:31)
[2017-10-10] MEDS: Cefdinir 300 MG CAP PO SCH ×2 (09:04→21:38)
[2017-10-10] MEDS: Senokot 8.6 MG TAB PO PRN (09:04)
[2017-10-10] MEDS: levETIRAcetam 500 MG TAB PO SCH ×2 (09:04→21:38)
[2017-10-10] MEDS: Ferrous Sulfate 325 MG TAB PO SCH ×2 (09:05→17:26)
--- NOTE | 2017-10-10 09:41 | PDOC.PN ---
- Subjective Encounter Start Date: 10/10/17 Encounter Start Time: 06:50 Patient seen and examined. No new complaints. No overnight events - Objective Resuscitation Status: Resuscitation Status FULL:Full Resuscitation MAR Reviewed: Yes Vital Signs & Weight: Vital Signs (12 hours) Temp Pulse Resp BP Pulse Ox 10/10/17 07:46 98.7 F 88 16 109/68 95 10/10/17 04:36 98 F 88 20 119/69 91 L 10/09/17 23:50 98.1 F 97 18 109/66 92 L Weight Admit Weight 177 lb 4.8 oz Weight 160 lb I&O: 10/09/17 10/10/17 10/11/17 06:59 06:59 06:59 Intake Total 400 700 Balance 400 700 Result Diagrams: 10/07/17 04:49 10/07/17 04:49 EKG Reviewed by me: Yes (nsr) Phys Exam - Physical Examination Constitutional: NAD HEENT: PERRLA, moist MMs, sclera anicteric Neck: no JVD, supple Respiratory: no wheezing, no rales, no rhonchi Cardiovascular: RRR, no significant murmur, no rub Gastrointestinal: soft, non-tender, no distention, positive bowel sounds Musculoskeletal: no edema, pulses present Neurological: non-focal, normal sensation, moves all 4 limbs Lymphatic: no nodes Psychiatric: normal affect, A&O x 3 Skin: no rash, normal turgor Dx/Plan (1) Acute metabolic encephalopathy Code(s): G93.41 - METABOLIC ENCEPHALOPATHY Status: Resolved Comment: now stable baseline (2) Acute pulmonary embolism Code(s): I26.99 - OTHER PULMONARY EMBOLISM WITHOUT ACUTE COR PULMONALE Status : Acute Comment: (3) Seizure Code(s): R56.9 - UNSPECIFIED CONVULSIONS Status: Acute Comment: on Keppra (4) Symptomatic anemia Code(s): D64.9 - ANEMIA, UNSPECIFIED Status: Acute Comment: (5) Vaginal bleeding Code(s): N93.9 - ABNORMAL UTERINE AND VAGINAL BLEEDING, UNSPECIFIED Status: Acute Comment: intermittent (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 (7) Anemia of chronic disease Code(s): D63.8 - ANEMIA IN OTHER CHRONIC DISEASES CLASSIFIED ELSEWHERE Status : Chronic (8) Ascites Code(s): R18.8 - OTHER ASCITES Status: Chronic Qualifiers: Ascites type: malignant (9) Dyslipidemia Code(s): E78.5 - HYPERLIPIDEMIA, UNSPECIFIED Status: Chronic (10) H/O malignant neoplasm of uterine body Code(s): Z85.42 - PERSONAL HISTORY OF MALIGNANT NEOPLASM OF OTH PRT UTERUS Status: Chronic Comment: on chemotherapy (11) HTN (hypertension) Code(s): I10 - ESSENTIAL (PRIMARY) HYPERTENSION Status: Chronic Qualifiers: Hypertension type: essential hypertension Qualified Code(s): I10 - Essential (primary) hypertension (12) Anasarca Code(s): R60.1 - GENERALIZED EDEMA Status: Acute (13) DVT (deep venous thrombosis) Code(s): I82.409 - ACUTE EMBOLISM AND THOMBOS UNSP DEEP VN UNSP LOWER EXTREMITY Status: Acute Qualifiers: Affected thrombotic vein of extremity: femoral Laterality: left (14) Hypoalbuminemia Code(s): E88.09 - OTH DISORDERS OF PLASMA-PROTEIN METABOLISM, NEC Status: Acute (15) Hypotension Status: Acute (16) Pneumonia Code(s): J18.9 - PNEUMONIA, UNSPECIFIED ORGANISM Status: Suspected - Plan cont current plan of care, continue antibiotics, social services assistant * today or tomorrow pt will be given radiation therapy, which needs to be done while in hospital as she is very weak and after discharge it is not possible to bring her back for radiation therapy * medication reviewed as below * symptomatic treatment. Review of Systems - Review of Systems Eyes: negative: Pain, Vision Change, Conjunctivae Inflammation, Eyelid Inflammation, Redness, Other ENT: negative: Ear Pain, Ear Discharge, Nose Pain, Nose Discharge, Nose Congestion, Mouth Pain, Mouth Swelling, Throat Pain, Throat Swelling, Other Respiratory: negative: Cough, Dry, Shortness of Breath, Hemoptysis, SOB with Excertion, Pleuritic Pain, Sputum, Wheezing Cardiovascular: negative: chest pain, palpitations, orthopnea, paroxysmal nocturnal dyspnea, edema, light headedness, other Gastrointestinal: negative: Nausea, Vomiting, Abdominal Pain, Diarrhea, Constipation, Melena, Hematochezia, Other Genitourinary: negative: Dysuria, Frequency, Incontinence, Hematuria, Retention , Other Musculoskeletal: negative: Neck Pain, Shoulder Pain, Arm Pain, Back Pain, Hand Pain, Leg Pain, Foot Pain, Other - Medications/Allergies Allergies/Adverse Reactions: Allergies Allergy/AdvReac Type Severity Reaction Status Date / Time No Known Drug Allergies Allergy Verified 08/09/17 16:23 Medications: Current Medications Acetaminophen (Tylenol) 650 mg PO Q4H PRN PRN Reason: Headache/Fever or Mild Pain Last Admin: 10/03/17 21:30 Dose: 650 mg Hydrocodone Bitart/Acetaminophen ([place] 5/325) 1 tab PO Q4H PRN PRN Reason: Moderate Pain (4-6) Last Admin: 10/09/17 17:05 Dose: 1 tab Al Hydroxide/Mg Hydroxide (Maalox) 15 ml PO Q4H PRN PRN Reason: Heartburn or Indigestion Artificial Tears (Tears Naturale) 0 drop EA EYE PRN PRN PRN Reason: Dry Eyes Cefdinir (Omnicef) 300 mg PO BID [facility] Last Admin: 10/10/17 09:04 Dose: 300 mg Cholecalciferol (Vitamin D3) 1,000 units PO DAILY [facility] Last Admin: 10/10/17 09:04 Dose: 1,000 units Ferrous [facility]ulfate ([facility]) [facility] Last Admin: 10/10/17 09:05 Dose: 325 mg Guaifenesin (Robitussin Sf) 200 mg PO Q4H PRN PRN Reason: Cough Hydralazine HCl (Apresoline) 5 mg SLOW IVP Q6H PRN PRN Reason: SBP>180 Levetiracetam (Keppra) 500 mg PO BID [facility] Last Admin: 10/10/17 09:04 Dose: 500 mg Loperamide HCl (Imodium) 2 mg PO PRN PRN PRN Reason: Diarrhea/Loose Stools Loratadine (Claritin) 10 mg PO DAILYPRN PRN PRN Reason: Sinus Symptoms Magnesium Hydroxide (Milk Of Magnesium) 30 ml PO DAILYPRN PRN PRN Reason: Constipation Last Admin: 10/09/17 17:05 Dose: 30 ml Mineral Oil/White Petrolatum (Eucerin Cream) 0 gm TOP BIDPRN PRN PRN Reason: Dry Skin Morphine Sulfate (Morphine) 3 mg SLOW IVP Q4H PRN PRN Reason: Pain Last Admin: 10/02/17 17:58 Dose: 3 mg Ondansetron HCl (Zofran Odt) 4 mg PO Q6H PRN PRN Reason: Nausea/Vomiting Ondansetron HCl (Zofran) 4 mg IVP Q6H PRN PRN Reason: Nausea/Vomiting Pantoprazole Sodium (Protonix) 40 mg PO DAILY [facility] Last Admin: 10/10/17 09:05 Dose: 40 mg Phenol (Chloraseptic [place] 180 Ml Bot) 0 ml PO PRN PRN PRN Reason: Sore Throat Senna (Senokot) 2 tab PO HSPRN PRN PRN Reason: Constipation Last Admin: 10/10/17 09:04 Dose: 2 tab Simvastatin (Zocor) 20 mg PO HS [facility] Last Admin: 10/09/17 20:31 Dose: 20 mg Sodium Chloride (Flush - Normal Saline) 10 ml IVF Q12HR [facility] Last Admin: 10/10/17 09:05 Dose: 10 ml Sodium Chloride (Flush - Normal Saline) 10 ml IVF PRN PRN PRN Reason: Saline Flush Sodium Chloride ([place] Nasal [place] 0.65%) 0 ml EA NARE QIDPRN PRN PRN Reason: Nasal Congestion Zolpidem Tartrate (Ambien) 5 mg PO HSPRN PRN PRN Reason: Insomnia
[2017-10-10] MEDS: Milk Of Magnesia 30 ML UDCUP PO PRN (17:26)
[2017-10-10] MEDS: Simvastatin 20 MG TAB PO SCH (21:38)
--- NOTE | 2017-10-11 09:28 | PDOC.PN ---
- Subjective Encounter Start Date: 10/11/17 Encounter Start Time: 07:00 Patient seen and examined. No new complaints. No overnight events - Objective Resuscitation Status: Resuscitation Status FULL:Full Resuscitation MAR Reviewed: Yes Vital Signs & Weight: Vital Signs (12 hours) Temp Pulse Resp BP Pulse Ox 10/11/17 07:03 99.4 F 97 12 116/72 95 10/11/17 04:00 98.8 F 101 H 20 117/73 100 10/11/17 00:05 99 F 102 H 18 117/67 97 10/10/17 21:31 99 F 102 H 18 97 Weight Admit Weight 177 lb 4.8 oz Weight 158 lb 3.2 oz I&O: 10/10/17 10/11/17 10/12/17 06:59 06:59 06:59 Intake Total 700 130 Balance 700 130 Result Diagrams: 10/07/17 04:49 10/07/17 04:49 Phys Exam - Physical Examination Constitutional: NAD HEENT: PERRLA, moist MMs, sclera anicteric Neck: no JVD, supple Respiratory: no wheezing, no rales, no rhonchi Cardiovascular: RRR, no significant murmur, no rub Gastrointestinal: soft, non-tender, no distention, positive bowel sounds Musculoskeletal: no edema, pulses present Neurological: non-focal, normal sensation Lymphatic: no nodes Psychiatric: normal affect Skin: no rash, normal turgor Dx/Plan (1) Acute metabolic encephalopathy Code(s): G93.41 - METABOLIC ENCEPHALOPATHY Status: Resolved Comment: now stable baseline (2) Acute pulmonary embolism Code(s): I26.99 - OTHER PULMONARY EMBOLISM WITHOUT ACUTE COR PULMONALE Status : Acute Comment: (3) Seizure Code(s): R56.9 - UNSPECIFIED CONVULSIONS Status: Acute Comment: on [place] (4) Symptomatic anemia Code(s): D64.9 - ANEMIA, UNSPECIFIED Status: Acute Comment: (5) Vaginal bleeding Code(s): N93.9 - ABNORMAL UTERINE AND VAGINAL BLEEDING, UNSPECIFIED Status: Acute Comment: intermittent (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 (7) Anemia of chronic disease Code(s): D63.8 - ANEMIA IN OTHER CHRONIC DISEASES CLASSIFIED ELSEWHERE Status : Chronic (8) Ascites Code(s): R18.8 - OTHER ASCITES Status: Chronic Qualifiers: Ascites type: malignant (9) Dyslipidemia Code(s): E78.5 - HYPERLIPIDEMIA, UNSPECIFIED Status: Chronic (10) H/O malignant neoplasm of uterine body Code(s): Z85.42 - PERSONAL HISTORY OF MALIGNANT NEOPLASM OF OTH PRT UTERUS Status: Chronic Comment: on chemotherapy (11) HTN (hypertension) Code(s): I10 - ESSENTIAL (PRIMARY) HYPERTENSION Status: Chronic Qualifiers: Hypertension type: essential hypertension Qualified Code(s): I10 - Essential (primary) hypertension (12) Anasarca Code(s): R60.1 - GENERALIZED EDEMA Status: Acute (13) DVT (deep venous thrombosis) Code(s): I82.409 - ACUTE EMBOLISM AND THOMBOS UNSP DEEP VN UNSP LOWER EXTREMITY Status: Acute Qualifiers: Affected thrombotic vein of extremity: femoral Laterality: left (14) Hypoalbuminemia Code(s): E88.09 - OTH DISORDERS OF PLASMA-PROTEIN METABOLISM, NEC Status: Acute (15) Hypotension Status: Acute (16) Pneumonia Code(s): J18.9 - PNEUMONIA, UNSPECIFIED ORGANISM Status: Suspected - Plan cont current plan of care, plan discussed w/ family * medication reviewed as below * symptomatic treatment * medically stable for discharge * discharge medication reconciliation done. * see discharge lexisy for details Review of Systems - Review of Systems Eyes: negative: Pain, Vision Change, Conjunctivae Inflammation, Eyelid Inflammation, Redness, Other ENT: negative: Ear Pain, Ear Discharge, Nose Pain, Nose Discharge, Nose Congestion, Mouth Pain, Mouth Swelling, Throat Pain, Throat Swelling, Other Respiratory: negative: Cough, Dry, Shortness of Breath, Hemoptysis, SOB with Excertion, Pleuritic Pain, Sputum, Wheezing Cardiovascular: negative: chest pain, palpitations, orthopnea, paroxysmal nocturnal dyspnea, edema, light headedness, other Gastrointestinal: negative: Nausea, Vomiting, Abdominal Pain, Diarrhea, Constipation, Melena, Hematochezia, Other Genitourinary: negative: Dysuria, Frequency, Incontinence, Hematuria, Retention , Other Musculoskeletal: negative: Neck Pain, Shoulder Pain, Arm Pain, Back Pain, Hand Pain, Leg Pain, Foot Pain, Other Skin: negative: Rash, Lesions, Darian, Bruising, Other - Medications/Allergies Allergies/Adverse Reactions: Allergies Allergy/AdvReac Type Severity Reaction Status Date / Time No Known Drug Allergies Allergy Verified 08/09/17 16:23 Medications: Current Medications Acetaminophen (Tylenol) 650 mg PO Q4H PRN PRN Reason: Headache/Fever or Mild Pain Last Admin: 10/03/17 21:30 Dose: 650 mg Hydrocodone Bitart/Acetaminophen ([place] 5/325) 1 tab PO Q4H PRN PRN Reason: Moderate Pain (4-6) Last Admin: 10/09/17 17:05 Dose: 1 tab Al Hydroxide/Mg Hydroxide (Maalox) 15 ml PO Q4H PRN PRN Reason: Heartburn or Indigestion Artificial Tears (Tears Naturale) 0 drop EA EYE PRN PRN PRN Reason: Dry Eyes Cefdinir (Omnicef) 300 mg PO BID [facility] Last Admin: 10/10/17 21:38 Dose: 300 mg Cholecalciferol (Vitamin D3) 1,000 units PO DAILY [facility] Last Admin: 10/10/17 09:04 Dose: 1,000 units [facility]ous [facility] Last Admin: 10/10/17 17:26 Dose: 325 mg Guaifenesin (Robitussin Sf) 200 mg PO Q4H PRN PRN Reason: Cough Hydralazine HCl (Apresoline) 5 mg SLOW IVP Q6H PRN PRN Reason: SBP>180 Levetiracetam (Keppra) 500 mg PO BID [facility] Last Admin: 10/10/17 21:38 Dose: 500 mg Loperamide HCl (Imodium) 2 mg PO PRN PRN PRN Reason: Diarrhea/Loose Stools Loratadine (Claritin) 10 mg PO DAILYPRN PRN PRN Reason: Sinus Symptoms Magnesium Hydroxide (Milk Of Magnesium) 30 ml PO DAILYPRN PRN PRN Reason: Constipation Last Admin: 10/10/17 17:26 Dose: 30 ml Mineral Oil/White Petrolatum (Eucerin Cream) 0 gm TOP BIDPRN PRN PRN Reason: Dry Skin Ondansetron HCl (Zofran Odt) 4 mg PO Q6H PRN PRN Reason: Nausea/Vomiting Ondansetron HCl (Zofran) 4 mg IVP Q6H PRN PRN Reason: Nausea/Vomiting Pantoprazole Sodium (Protonix) 40 mg PO DAILY [facility] Last Admin: 10/10/17 09:05 Dose: 40 mg Phenol (Chloraseptic [place] 180 Ml Bot) 0 ml PO PRN PRN PRN Reason: Sore Throat Senna (Senokot) 2 tab PO HSPRN PRN PRN Reason: Constipation Last Admin: 10/10/17 09:04 Dose: 2 tab Simvastatin (Zocor) 20 mg PO HS [facility] Last Admin: 10/10/17 21:38 Dose: 20 mg Sodium Chloride (Flush - Normal Saline) 10 ml IVF Q12HR [facility] Last Admin: 10/10/17 21:41 Dose: 10 ml Sodium Chloride (Flush - Normal Saline) 10 ml IVF PRN PRN PRN Reason: Saline Flush Sodium Chloride ([place] Nasal [place] 0.65%) 0 ml EA NARE QIDPRN PRN PRN Reason: Nasal Congestion Zolpidem Tartrate (Ambien) 5 mg PO HSPRN PRN PRN Reason: Insomnia
[2017-10-11] MEDS: Cefdinir 300 MG CAP PO SCH (09:39)
[2017-10-11] MEDS: Ferrous Sulfate 325 MG TAB PO SCH ×2 (09:39→16:06)
[2017-10-11] MEDS: levETIRAcetam 500 MG TAB PO SCH (09:43)
--- NOTE | 2017-10-11 10:18 | DIS ---
DATE OF ADMISSION: 09/26/2017 DATE OF DISCHARGE: 10/11/2017 PRIMARY CARE PHYSICIAN: Blanca Whalen. DISCHARGE DISPOSITION: Home with home hospice. PRIMARY DISCHARGE DIAGNOSES: Acute bilateral pulmonary embolism, deep vein thrombosis, anasarca, acu te encephalopathy, new onset seizure, symptomatic anemia, peritoneal carcinomatosis, malignant ascite s and acute metabolic encephalopathy. SECONDARY DISCHARGE DIAGNOSES: Hypertension, metastatic endometrial carcinoma of uterus, dyslipidemi a, anemia of chronic disease, recurrent vaginal bleeding, physical deconditioning and hypoalbuminemia . PRIMARY PROCEDURE/OPERATION: Radiation marking and radiation therapy. RADIOLOGICAL INVESTIGATION: CT angiography on admission showed no acute abnormality, pulmonary embol i noted, bilateral pleural effusion noted. Chest x-ray unremarkable. CT chest, abdomen, and pelvis showed pulmonary embolism, pleural effusion, ascites and anasarca. MRI brain negative for any acute process. Electrophysiology study, diffuse slowing. Ultrasound of lower extremity positive for DVT. SIGNIFICANT LABORATORY DATA: WBC 10.4, hemoglobin 8.1, platelet 321. INR 1.5. Sodium 138, creatini ne 0.72, albumin 2.8. Urine culture and blood culture negative. DISCHARGE MEDICATIONS: Vitamin D3 1000 units p.o. daily, ferrous sulfate 325 mg p.o. b.i.d., Lasix 2 0 mg daily, Keppra 500 mg p.o. b.i.d., Toprol-XL 100 mg p.o. b.i.d., multivitamin 1 tablet p.o. daily , omeprazole 20 mg p.o. daily, oxybutynin 5 mg p.o. daily, Protonix 40 mg p.o. daily, potassium chlor maura 10 mEq p.o. daily and Zocor 20 mg p.o. at bedtime. CONTRAINDICATIONS: Patient is not given anticoagulant therapy because contraindicated for her recurr ent vaginal bleeding. Anticoagulation will be started as an outpatient basis when vaginal bleeding s tops after radiation therapy. CODE STATUS: FULL CODE. INPATIENT CONSULTANTS: Dr. Don was consulted for DVT, PE and he was again stopped giving blood t [facility] because of recurrent bleeding. Dr. Knapp was consulted for IVC filter, but he did not recommend IVC filter. Dr. Milagros Mayo was consulted for Radiation Oncology for palliative ra diation. Dr. Suleiman Sun was consulted for seizure and encephalopathy. TEST RESULTS PENDING ON DISCHARGE: None. ALLERGIES: No known drug allergy. DISCHARGE PLAN: Post hospital, patient will follow up with Dr. Blanca Pérez. The patient will follow up with radiation oncologist. The patient will follow up with primary care physician. HOSPITAL COURSE: A 77-year-old female who was admitted by Dr. Wilfredo Trammell. Please see her H&P f or further detail. She was brought to emergency room for altered mental status. In the emergency ro om, she had CT angiography [place] which was negative for any acute process. Her CT brain w as also negative for any acute process. Incidentally, she had a finding of pleural effusion and bila teral pulmonary embolism. Patient had seizure activity. She had MRI brain which was negative for an y stroke. EEG was done which was showing diffuse slowing. Neurology was consulted. Neurology recom mended to treat seizure with Keppra. She was initially admitted in [facility]U and subsequently she was tra nsferred to stroke floor. She was diagnosed with bilateral pulmonary embolism with pleural effusion. Dr. Don was following . She was having ongoing recurrent vaginal bleeding and that is why patient was not a good candidate for anticoagulation. We had multiple time discussions with the patient and family member about futi le role of anticoagulation at this point and anticoagulation therapy was discontinued. We also consulted CT surgeon for IVC filter, but family member opted to continue anticoagulation ther apy once bleeding stops and that is why IVC filter was not an option for her. We spoke with her oncologist and she recommended palliative radiation therapy for her irregular vagin al bleeding and that is why we consulted Dr. Milagros Mayo and he did radiation marking and patient lico l get radiation therapy. Once her vaginal bleeding stops, then primary care physician decides to treat her DVT and PE with ant icoagulation therapy, then at that point, it can be started. Patient and family member agreed not to continue anticoagulation therapy at this point until bleeding stops. They understand the risk of not getting any blood thinner medicine. While in hospital, we had multiple time discussions about goal of care with palliative care. The pat ient opted to continue FULL CODE status, but she decided to go home with home hospice. Necessary arr angement was done. The patient did not want to go to any kind of placement. She has family support. The patient is seen and examined at bedside today. Discharge medication reconciliation done. Please see my progress note from today for further detail. Total time spent on discharge day 31 minutes.
[2017-10-11 11:50] VITALS: TEMP 98.1
[2017-10-11 14:49] VITALS: BMI 25.5
[2017-10-11 15:57] VITALS: BP 118/72
== END 2017-10-11 16:57 | disposition hospice, home (50) | DRG 175 ==
LOC: ERS 15:13 → IMCU/EMU 17:49 → 2SE 09-29 16:17
PROVIDERS: ADMIT Internal Medicine; ATTEND Internal Medicine
PROC: 30233N1 Transfusion of Nonautologous Red Blood Cells into Peripheral Vein, Percutaneous Approach (ICD-10-PCS; principal; 2017-10-03)
DX: I26.99 Other pulmonary embolism without acute cor pulmonale (principal); G93.41 Metabolic encephalopathy; J91.0 Malignant pleural effusion; C78.6 Secondary malignant neoplasm of retroperitoneum and peritoneum; I82.413 Acute embolism and thrombosis of femoral vein, bilateral; C54.1 Malignant neoplasm of endometrium; Z51.5 Encounter for palliative care; R56.9 Unspecified convulsions; I10 Essential (primary) hypertension; K21.9 Gastro-esophageal reflux disease without esophagitis; E78.5 Hyperlipidemia, unspecified; D63.0 Anemia in neoplastic disease; E88.09 Other disorders of plasma-protein metabolism, not elsewhere classified; Z79.899 Other long term (current) drug therapy
CPT/HCPCS: 36415; 36430; 51701; 70450; 70496; 70498; 70553; 71045; 71260; 74177; 77014; 77280; 77290; 77300; 77307; 77334; 77412; 80048; 80053; 81003; 82140; 82553; 83735; 83880; 84100; 84484; 85014; 85018; 85025; 85027; 85610; 85730; 86304; 86850; 86900; 86901; 87040; 87086; 93005; 93306; 93970; 94760; 95816; 95819; 96374; 96375; A4216; G8978-GP-CM; G8979-GP-CK; G8979-GP-CL; G8987-GO-CL; G8988-GO-CJ; J0290; J0360; J0696; J1100; J1642; J1650; J1953; J2270; J3475; J7050; P9016; S0028